=== PATIENT | female | born 1930 | race Caucasian/White ===

== ENCOUNTER → 2016-04-08 | Outpatient (CLI) | payer OTHER ==
[~2016-04-08] MED LIST: ATV5X PO; CHOL100010 PO; CZR50 PO; OPTIRAY 320 IV PRN; POLY335019 PO; QSTP PO; VANC5CAP PO; XRL10 PO
[2016-04-08 13:50] LABS: BLOOD UREA NITROGEN 22 mg/dl (7-18)
--- NOTE | 2016-04-08 14:34 | DIAGNOSTIC IMAGING REPORT ---
CT SCAN OF THE NECK WITH IV CONTRAST CLINICAL HISTORY: Left-sided neck mass. COMPARISON STUDY: No priors. TECHNIQUE: Following the IV administration of 92 cc of Optiray 320, CT scan of the soft tissues of the neck was performed from the skull base to the upper chest. Images are reviewed in the axial, sagittal, and coronal planes. IV contrast was administered without complication. The examination is degraded by streak artifact from metallic spinal orthopedic hardware. CT DOSE: 311.98 mGy.cm FINDINGS: Pharynx: The nasopharynx, oropharynx, and laryngeal pharynx are normal in appearance. The pharyngeal airway is widely patent. There is no evidence of mass lesion. The vocal cords are symmetric. The parapharyngeal fat is well maintained. The prevertebral/retropharyngeal soft tissues are within normal limits. Lymphadenopathy: No cervical lymphadenopathy is seen Thyroid: Normal in size and attenuation. Salivary glands: A cutaneous marker has been placed over a normal appearing left submandibular gland. The left submandibular gland appears larger than the right which is atrophic. There is no surrounding inflammation or fluid. The parotid glands are normal in appearance. Brain parenchyma: An electrode from an occipital extends into the imaged right lateral ventricle. The visualized brain parenchyma at the skull base is otherwise normal in appearance noting age-related involutional change. Vascular structures: The carotid arteries and jugular veins are widely patent bilaterally. Skeletal structures: The skeletal structures are osteopenic. Imaged portions of the calvarium at the skull base appear intact noting a right occipital felicity hole. There is moderate multilevel cervical spondylosis with evidence of previous spinal surgery. No lytic or blastic lesions are identified. Orbits: The bony orbits appear intact as visualized. Orbital contents are normal in appearance noting bilateral ocular lens implants. Sinuses and mastoids: Trace mucosal thickening is seen within the maxillary and ethmoid sinuses. The mastoid air cells are well pneumatized. Lung apices: Visualized apical lung parenchyma is clear. IMPRESSION: 1. No acute abnormality is seen. There is no concerning mass lesion or lymphadenopathy. 2. The finding of palpable concern corresponds to the normal left submandibular gland Electronically signed by: Cristian Hernandez M.D. 04/08/2016 2:33 PM Dictated Date/Time: 04/08/2016 2:20 PM
== END | disposition home or self-care (01) ==
LOC: C.CTS 12:49
PROVIDERS: ATTEND Hospitalist
DX: C50.919 Malignant neoplasm of unspecified site of unspecified female breast (principal); R22.0 Localized swelling, mass and lump, head; R63.4 Abnormal weight loss; J32.9 Chronic sinusitis, unspecified

== ENCOUNTER → 2016-05-01 | Outpatient (CLI) | payer OTHER ==
[~2016-05-01] MED LIST changes: -OPTIRAY 320 IV PRN
--- NOTE | 2016-05-02 12:31 | MAMMOGRAPHY REPORT ---
UNILATERAL RIGHT DIGITAL DIAGNOSTIC MAMMOGRAM TOMOSYNTHESIS WITH CAD AND TARGETED RIGHT ULTRASOUND: 05/01/2016 CLINICAL HISTORY: 85 year-old woman with a history of left breast cancer status post mastectomy pres ents with a complaint of pain throughout the right breast. She is status post a benign ultrasound-g uided biopsy in the right 12:00 breast in 2014. TECHNIQUE: Right breast tomosynthesis in addition to standard 2D mammography was performed. Current study was also evaluated with a Computer Aided Detection (CAD) system. COMPARISON: Comparison is made to exams dated: 05/16/2015 mammogram, 05/13/2014 mammogram, 05/27/2013 ma mmogram, 05/14/2012 mammogram, 04/13/2009 mammogram - [facility], and 03/29/2008. BREAST COMPOSITION: The tissue of the right breast is extremely dense, which lowers the sensitivity of mammography. FINDINGS: Radiodense tubing is partially visualized in the medial, far posterior right breast on the CC view. There are benign coarse calcifications scattered in the right breast. A stable metallic biopsy marker in the 12:00 middle one third of the breast. There is stable asymmetry in the 12:00 a xis and mild architectural distortion, from previous surgical excision. No new suspicious mass, arc hitectural distortion or cluster of microcalcifications is seen. Targeted ultrasound was performed throughout the right breast in the areas of concern pointed out by the patient in the 12:00, retroareolar and periareolar right breast. Normal fibroglandular tissue is seen in the periareolar and retroareolar breast. Hypoechoic tissue that has the appearance of sc ar tissue is identified in the 12:00 breast, correlating with an area of previous surgical excision. No suspicious solid or cystic mass is identified. IMPRESSION: ACR BI-RADS CATEGORY 2: BENIGN, TARGETED ULTRASOUND ACR BI-RADS CATEGORY 2: BENIGN There is no mammographic or targeted sonographic evidence of malignancy. There is no suspicious zane mographic or sonographic abnormality to explain the patient's pain and symptoms. Therefore, clinica l follow-up is recommended. Given the personal history of left breast cancer and dense breasts, if the patient's symptoms are cl inically worrisome could consider additional evaluation with a breast MRI. These results and recomm endations were discussed with the patient and her granddaughter at the time of the exam. Otherwise would recommend routine right mammography in one year. Approximately 10% of breast cancers are not detected with mammography. A negative mammographic repor t should not delay biopsy if a clinically suggestive mass is present. Rosario Robles M.D. ay/:05/01/2016 17:22:54 [employer]: Lexus JAMES(Thor)(Jill), [facility] letter sent: Normal 1/2 BI-RADS Code: ACR BI-RADS Category 2: Benign Ultrasound BI-RADS: ACR BI-RADS Category 2: Benign
== END | disposition home or self-care (01) ==
LOC: C.MAMM 08:58
PROVIDERS: ATTEND Internal Medicine
DX: N64.4 Mastodynia (principal); Z85.3 Personal history of malignant neoplasm of breast

== ENCOUNTER → 2016-05-20 | Outpatient (CLI) | payer OTHER | END | disposition home or self-care (01) | LOC: C.PATHSPEC 13:38 | PROVIDERS: ATTEND Dermatology | DX: L85.8 Other specified epidermal thickening (principal) ==

== ENCOUNTER → 2016-06-04 | Outpatient (CLI) | payer OTHER ==
[2016-06-04 17:38] LABS: BASO % 0.5 %; BASO ABS # 0.03 K/uL (0-0.2); COMPLETE YES; EOS % 2.2 %; HEMATOCRIT 43.6 % (37-47); IG% 0.2 %; LYMPH % 29.3 %; LYMPH ABS # 1.87 K/uL (1.2-3.4); MEAN CELL VOLUME 90.1 fL (80-100); MEAN CORPUSCULAR HEMOGLOBIN 29.3 pg (25-34); MEAN CORPUSCULAR HGB CONC 32.6 g/dl (32-36); MEAN PLATELET VOLUME 10.8 fL (7.4-10.4); MONO % 10.5 %; NEUT % 57.3 %; PLATELET COUNT 297 K/uL (130-400); RED BLOOD COUNT 4.84 M/uL (4.2-5.4); WHITE BLOOD COUNT 6.39 K/uL (4.8-10.8)
[2016-06-04 17:45] LABS: URINE APPEARANCE CLEAR (CLEAR); URINE BILIRUBIN NEG (NEG); URINE COLOR YELLOW; URINE EPITHELIAL CELL AUTO 0-5 /lpf (0-5); URINE NITRITE NEG (NEG); URINE PH 6.5 (4.5-7.5); URINE SPECIFIC GRAVITY 1.016 (1.000-1.030); UROBILINOGEN NEG (NEG); ZZUR CULT IF INDIC CLEAN CATCH NO
[2016-06-04 17:50] LABS: ALT/SGPT 25 U/L (12-78); BLOOD UREA NITROGEN 20 mg/dl (7-18); BUN/CREATININE RATIO 17.9 (10-20); CALCIUM 9.6 mg/dl (8.5-10.1); CARBON DIOXIDE 31 mmol/L (21-32); CHLORIDE 107 mmol/L (98-107); GLUCOSE 106 mg/dl (70-99); MANUAL MICROSCOPIC REQUIRED? NO; POTASSIUM 3.8 mmol/L (3.5-5.1); REVIEW REQ? NO; SODIUM 144 mmol/L (136-145)
[2016-06-04 17:52] LABS: ALB/GLOB RATIO 1.2 (0.9-2); ALKALINE PHOSPHATASE 118 U/L (45-117); AST/SGOT 22 U/L (15-37)
[2016-06-06 18:03] LABS: ALBUMIN 4.3 G/DL (3.8-4.8); GAMMA GLOBULIN 0.7 G/DL (0.8-1.7); TOTAL PROTEIN 6.8 G/DL (6.2-8.3)
== END | disposition home or self-care (01) ==
LOC: C.LABBFT 14:11
PROVIDERS: ATTEND Internal Medicine
DX: M81.0 Age-related osteoporosis without current pathological fracture (principal); R14.0 Abdominal distension (gaseous); E55.9 Vitamin D deficiency, unspecified

== ENCOUNTER → 2016-06-04 | Outpatient (CLI) | payer OTHER ==
--- NOTE | 2016-06-04 12:18 | DIAGNOSTIC IMAGING REPORT ---
ABDOMINAL ULTRASOUND COMPLETE HISTORY: Pain. Nausea. R14.0 Abdominal [id number]. COMPARISON: None. FINDINGS: Pancreas: The pancreas demonstrates a normal echotexture. Liver: Unremarkable. Gallbladder: Surgically removed CBD: 8 mm possibly on a post operative basis Kidneys: Small bilateral renal cysts. No evidence for renal hydronephrosis. Spleen: Normal in size. Aorta: Normal in caliber. IVC: Patent. IMPRESSION: 1. Small bilateral renal cysts. 2. No evidence for hydronephrosis. 3. Otherwise negative study status post cholecystectomy Electronically signed by: Markie Loredo M.D. 06/04/2016 12:16 PM Dictated Date/Time: 06/04/2016 12:14 PM
== END | disposition home or self-care (01) ==
LOC: C.ULTR 10:44
PROVIDERS: ATTEND Internal Medicine
DX: R14.0 Abdominal distension (gaseous) (principal)

== ENCOUNTER → 2016-06-10 | Outpatient (CLI) | payer OTHER | END | disposition home or self-care (01) | LOC: C.LABSPEC 17:55 | PROVIDERS: ATTEND Internal Medicine | DX: R14.0 Abdominal distension (gaseous) (principal) ==

== ENCOUNTER → 2016-06-21 | Outpatient (CLI) | payer OTHER ==
[~2016-06-21] MED LIST changes: +OPTIRAY 320 IV PRN
--- NOTE | 2016-06-21 16:00 | DIAGNOSTIC IMAGING REPORT ---
CT OF THE ABDOMEN AND PELVIS WITH CONTRAST CLINICAL HISTORY: Abdominal pain and bloating. COMPARISON STUDY: Abdominal ultrasound June 04, 2016. TECHNIQUE: Following IV administration of 116 mL of Optiray-320, axial images of the abdomen and pelvis were obtained from the lung bases to the proximal femurs. Images were reviewed in the axial, sagittal, and coronal planes. IV contrast was administered without complication. Oral contrast was administered. CT DOSE: 367.27 mGy.cm FINDINGS: Visualized portions the lower chest demonstrate moderate cardiomegaly. Several bilateral renal cysts are noted. There is no biliary ductal dilatation status post cholecystectomy. There is no peripancreatic infiltration. The spleen and adrenal glands are unremarkable. A JACKSPOOLER shunt is partially imaged. There is no ascites or lymphadenopathy. The uterus is surgically absent. There is no evidence for a bowel obstruction. There is a moderate amount of stool within the colon. No suspicious osseous lesion is present. The appendix is not visualized. IMPRESSION: 1. No acute process within the abdomen or pelvis. 2. No bowel obstruction. Moderate amount of stool within the colon. Electronically signed by: Matias Joel M.D. 06/21/2016 3:58 PM Dictated Date/Time: 06/21/2016 3:49 PM
== END | disposition home or self-care (01) ==
LOC: C.CTS 15:28
PROVIDERS: ATTEND Physician Assistant Medical
DX: R14.0 Abdominal distension (gaseous) (principal)

== ENCOUNTER → 2016-09-02 | Outpatient (CLI) | payer OTHER ==
[~2016-09-02] MED LIST changes: -OPTIRAY 320 IV PRN
--- NOTE | 2016-09-02 16:47 | DIAGNOSTIC IMAGING REPORT ---
SI JOINTS 3 OR MORE VIEWS CLINICAL HISTORY: SACROILIITIS COMPARISON STUDY: Abdomen and pelvis CT 06/21/2016. FINDINGS: Mild degenerative changes within the bilateral sacroiliac joints. No fusion or erosions identified. The sacrum is intact. 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 Electronically signed by: Junior Hathaway M.D. 09/02/2016 4:46 PM Dictated Date/Time: 09/02/2016 4:45 PM
--- NOTE | 2016-09-02 16:48 | DIAGNOSTIC IMAGING REPORT ---
LUMBAR SPINE 5 VIEWS HISTORY: SACROILIITIS COMPARISON: None. FINDINGS: There is no fracture. Generalized degenerative disc change throughout. No evidence for an acute compression deformity. No evidence subluxation. IMPRESSION: Generalized degenerative change. Mild scoliosis. Electronically signed by: Markie Loredo M.D. 09/02/2016 4:47 PM Dictated Date/Time: 09/02/2016 4:45 PM
== END | disposition home or self-care (01) ==
LOC: C.RAD1850 16:10
PROVIDERS: ATTEND Physician Assistant Medical
DX: M46.1 Sacroiliitis, not elsewhere classified (principal)

== ENCOUNTER → 2016-11-08 | Outpatient (CLI) | payer OTHER ==
[~2016-11-08] MED LIST changes: -QSTP PO; -VANC5CAP PO
--- NOTE | 2016-11-08 10:05 | DIAGNOSTIC IMAGING REPORT ---
ABDOMEN 2VIEW W/PA CHEST RTN CLINICAL HISTORY: R14.0 Abdominal [id number] Chronic [id number] COMPARISON STUDY: 12/09/2015 FINDINGS: The erect chest reveals no free air. There is no focal pulmonary consolidation. There is a presumed ventriculoperitoneal shunt catheter present. Erect and supine views the abdomen reveal a peritoneal catheter. There is no pathologic bowel dilatation. There is scattered stool within the colon. There are no transition zones indicate bowel obstruction. There are no calcification suspicious for renal calculi. IMPRESSION: No evidence of bowel obstruction. No evidence of free air. Electronically signed by: Kong Burk M.D. 11/08/2016 10:03 AM Dictated Date/Time: 11/08/2016 10:02 AM
== END | disposition home or self-care (01) ==
LOC: C.RAD1850 09:22
PROVIDERS: ATTEND Physician Assistant
DX: K59.09 Other constipation (principal); R14.0 Abdominal distension (gaseous)

== ENCOUNTER 2016-11-19 19:15 | Emergency (ER) | payer OTHER ==
[~2016-11-19] VITALS: Ht 172.7 cm; Wt 72.8 kg
[~2016-11-19 19:15] MED LIST changes: -XRL10 PO
[2016-11-19 19:24] VITALS: TEMP 36.5; Ht 172.7 cm; Wt 72.8 kg
--- NOTE | 2016-11-19 20:16 | EMERGENCY ROOM VISIT NOTE ---
History First contact with patient: 19:48 Chief Complaint: LEG PAIN,LEG INJURY Stated Complaint: PAIN IN RIGHT LEG History of Present Illness The patient is a 86 year old female who presents to the Emergency Room with complaints of right leg pain that has been bothering her for the last 3 days. The patient denies any injury. The pain is particularly in her right calf. She does notice some pain up to her buttock. She does admit to having back pain , however this is chronic. No fever or chills. She denies any chest pain or shortness of breath. The patient does have a remote history of blood clots. She does not take any anticoagulation. Review of Systems 10 system review performed and negative unless noted in HPI or below Past Medical/Surgical History Medical Problems: (1) Breast cancer (2) C. difficile colitis (3) Hx Of Breast Malignancy (4) Hx-Venous Thrombosis&Embolism (5) Lumbar Disc Displacement (6) Osteoporosis Nos (7) Pure Hypercholesterolem (8) Spondylolisthesis Surgical Problems: (1) Hx of lumbosacral spine surgery (2) Hx of vaginal hysterectomy Family History Lung disease Social History Smoking Status: Never Smoker Alcohol Use: none Marital Status: Housing Status: assisted living Occupation Status: retired Current/Historical Medications Scheduled Cholecalciferol (Vitamin D), 1,000 INTER.UNIT PO DAILY Losartan Potassium (Losartan Potassium), 50 MG PO QAM Polyethylene Glycol 3350 (Miralax), 17 GM PO DAILY Rivaroxaban (Xarelto), 1.5 TAB PO BID Scheduled PRN Lorazepam (Lorazepam), 0.5 MG PO BID PRN for Anxiety and/or Sedation Physical Exam Vital Signs Date Time Temp Pulse Resp B/P (MAP) Pulse Ox O2 Delivery O2 Flow Rate FiO2 11/19/16 22:24 96 18 174/93 98 Room Air 11/19/16 21:39 87 18 162/95 97 Room Air 11/19/16 19:24 36.5 111 18 172/95 91 Room Air Physical Exam VITALS: Vitals are noted on the nurse's note and reviewed by myself. Vital signs stable. GENERAL: 86-year-old female, in no acute distress, nondiaphoretic, SKIN: The skin was without rashes, erythema, edema, or bruising. There is no tenting of the skin. Capillary reflex less than 2 seconds. HEAD: Normocephalic atraumatic. HEART: Regular rate and rhythm without murmurs gallops or rubs. LUNGS: Clear to auscultation bilaterally without wheezes, rales or rhonchi. No accessory muscle use. . MUSCULOSKELETAL: RLE: Tenderness to palpation over the calf muscle. Negative Homans sign. Full range of motion of the knee. No tenderness over the knee. DP pulse +2. Capillary refill less than 2 seconds. No tenderness elicited over the lumbar spinous processes or SI joint. NEURO: Patient was alert and oriented to person place and time. Normal sensation to touch. No focal neurological deficits. Medical Decision & Procedures ER Provider Diagnostic Interpretation: Patient Name: SHAY BUSTOS Unit Number: [id number] Dictated: 11/19/162141 Transcribed: 11/19/162141 ROXANA Printed Date/Time: [~ rep prt dt]/[~ rep prt tm] [~ rep ct labl] - [~ rep ct ivnm] [facility] [address] Radiology Department [place] [id number] Dictated: 11/19/162141 Transcribed: 11/19/162141 ROXANA Printed Date/Time: [~ rep prt dt]/[~ rep prt tm] [~ rep ct labl] - [~ rep ct ivnm] RIGHT LOWER EXTREMITY VENOUS DOPPLER CLINICAL HISTORY: Right lower extremity pain. COMPARISON STUDY: Right lower extremity venous Doppler May 18, 2012. TECHNIQUE: Sonography of the deep venous system of the right lower extremity was performed. Compression and augmentation were evaluated. FINDINGS: The right common femoral, superficial femoral and popliteal veins were compressible. Augmentation was normal. Deep venous thrombus was noted within the right posterior tibial vein. IMPRESSION: Deep venous thrombus within the right posterior tibial vein. Electronically signed by: Matias Joel M.D. 11/19/2016 9:43 PM Dictated Date/Time: 11/19/2016 9:42 PM The status of this report is Signed. Draft = Not yet reviewed or approved by Radiologist. Signed = Reviewed and approved by Radiologist. <AttendingPhy></AttendingPhy> <FamilyPhy>Morgan Wen M.D.</FamilyPhy > <PrimaryPhy>Morgan Wen M.D.</PrimaryPhy> <UnitNumber>[id number]</ UnitNumber> <VisitNumber>[id number]</VisitNumber> <PatientName>SHAY BUSTOS</ PatientName> <DateOfBirth>1930</DateOfBirth> <Location>[facility]</Location> < ServiceDate>11/19/16</ServiceDate> <MNE>ESINDI</MNE> <OrderingPhy>Rebecca Kelly PA-C</OrderingPhy> <OrderingPhyMNE>f rep ord dr vergara</OrderingPhyMNE> < DictatingPhyMNE>f rep dict dr vergara</DictatingPhyMNE> <CCListMNE>f rep ct mne</ CCListMNE> <AdmittingPhyMNE>f pt admit dr vergara</AdmittingPhyMNE> <AttendingPhyMNE >f pt attend dr vergara</AttendingPhyMNE> <ConsultingPhyMNE>f pt consult dr vergara</ConsultingPhyMNE> <FamilyPhyMNE>f pt fam dr vergara</FamilyPhyMNE> <OtherPhyMNE>f pt other dr vergara</OtherPhyMNE> < PrimaryPhyMNE>f pt prim care dr vergara</PrimaryPhyMNE> <ReferringPhyMNE>f pt referring dr vergara</ReferringPhyMNE> Laboratory Results 11/19/16 22:16 Red Blood Count 4.46, Mean Corpuscular Volume 91.0, Mean Corpuscular Hemoglobin 29.1, Mean Corpuscular Hemoglobin Concent 32.0, Mean Platelet Volume 9.9, Neutrophils (%) (Auto) 48.6, Lymphocytes (%) (Auto) 37.0, Monocytes (%) (Auto) 11.4, Eosinophils (%) (Auto) 2.5, Basophils (%) (Auto) 0.5, Neutrophils # (Auto ) 3.66, Lymphocytes # (Auto) 2.79, Monocytes # (Auto) 0.86, Eosinophils # (Auto ) 0.19, Basophils # (Auto) 0.04 11/19/16 22:16 Test 11/19/16 22:16 White Blood Count 7.54 K/uL (4.8-10.8) Red Blood Count 4.46 M/uL (4.2-5.4) Hemoglobin 13.0 g/dL (12.0-16.0) Hematocrit 40.6 % (37-47) Mean Corpuscular Volume 91.0 fL (80-100) Mean Corpuscular Hemoglobin 29.1 pg (25-34) Mean Corpuscular Hemoglobin Concent 32.0 g/dl (32-36) Platelet Count 289 K/uL (130-400) Mean Platelet Volume 9.9 fL (7.4-10.4) Neutrophils (%) (Auto) 48.6 % Lymphocytes (%) (Auto) 37.0 % Monocytes (%) (Auto) 11.4 % Eosinophils (%) (Auto) 2.5 % Basophils (%) (Auto) 0.5 % Neutrophils # (Auto) 3.66 K/uL (1.4-6.5) Lymphocytes # (Auto) 2.79 K/uL (1.2-3.4) Monocytes # (Auto) 0.86 K/uL (0.11-0.59) Eosinophils # (Auto) 0.19 K/uL (0-0.5) Basophils # (Auto) 0.04 K/uL (0-0.2) RDW Standard Deviation 42.4 fL (36.4-46.3) RDW Coefficient of Variation 12.7 % (11.5-14.5) Immature Granulocyte % (Auto) 0.0 % Immature Granulocyte # (Auto) 0.00 K/uL (0.00-0.02) Prothrombin Time 10.3 SECONDS (9.0-12.0) Prothromb Time International Ratio 1.0 (0.9-1.1) Anion Gap 8.0 mmol/L (3-11) Est Creatinine Clear Calc Drug Dose 31.3 ml/min Estimated GFR () 43.0 Estimated GFR (Non- 37.1 BUN/Creatinine Ratio 21.2 (10-20) Calcium Level 9.1 mg/dl (8.5-10.1) ED Course The patient was seen and examined Imaging was performed The patient was off her pain medication, which she declined The findings were discussed with the patient Labs were collected and reviewed The patient was given 1 dose Xarelto 15 mg po Discharge instructions were reviewed, and the patient was discharged in good condition Medical Decision Differential diagnosis: DVT, muscle strain, lumbar radiculopathy This patient is an 86-year-old female that presents emergency department with calf pain. She does have a history of DVT. An ultrasound was performed and consistent with a DVT in the posterior tibial vein. It was not extensive. Her pain was not significant. There are no signs of PE such as hypoxia, chest pain or shortness of breath. The patient lives in assisted living. She has not had any frequent falls. No history of GI bleeding. She was given 1 dose Xarelto in the emergency department. She will be made a follow-up appointment with Dr. Wen within the next 2-3 days. She agrees to return to the emergency department with worsening symptoms such as increased pain, swelling and particularly difficulty breathing or chest pain. Medication Reconcilliation Current Medication List: was personally reviewed by me Blood Pressure Screening Patient's blood pressure: Elevated blood pressure Blood pressure disposition: Elevated BP felt to be situational Impression Primary Impression: DVT (deep venous thrombosis) Departure Information Dispostion Home / Self-Care Condition GOOD Prescriptions Rivaroxaban (Xarelto) 10 Mg Tab 1.5 TAB PO BID for 21 Days, #63 TAB Prov: Rebecca Kelly PA-C 11/19/16 Referrals Morgan Wen M.D. (PCP) Patient Instructions DVT, [facility] Additional Instructions You were found to have a blood clot also known as a DVT in your right leg. You were started on a blood thinner called Xarelto. Please take this as directed. It is very important that you follow up with Dr. Wen within the next 2-3 days. We will call tomorrow morning and try to make the appointment for you. It was also noted that your kidney function was slightly abnormal. It is recommended that you had this rechecked in the next 2-3 days. Your blood pressure was also slightly elevated. Please have Dr. Wen recheck this in the office. Please rest. No strenuous activity until seen by Dr. Wen. Walking around your apartment is ok Please take Tylenol 500 mg every 4 hours as needed for pain. I would avoid ibuprofen for now. Please discuss this with Dr. Wen. Return to the emergency department if you have any of the following symptoms: -Increased redness or swelling of the leg -Chest pain -Shortness of breath -Worsening pain
--- NOTE | 2016-11-19 21:44 | DIAGNOSTIC IMAGING REPORT ---
RIGHT LOWER EXTREMITY VENOUS DOPPLER CLINICAL HISTORY: Right lower extremity pain. COMPARISON STUDY: Right lower extremity venous Doppler May 18, 2012. TECHNIQUE: Sonography of the deep venous system of the right lower extremity was performed. Compression and augmentation were evaluated. FINDINGS: The right common femoral, superficial femoral and popliteal veins were compressible. Augmentation was normal. Deep venous thrombus was noted within the right posterior tibial vein. IMPRESSION: Deep venous thrombus within the right posterior tibial vein. Electronically signed by: Matias Joel M.D. 11/19/2016 9:43 PM Dictated Date/Time: 11/19/2016 9:42 PM
--- NOTE | 2016-11-19 22:30 | EMERGENCY ROOM VISIT NOTE ---
ED Visit Note First contact with patient: 19:48 This Patient was discussed with the physician Meat Process Worker, Rebecca Kelly PA-C. The pertinent historical and physical exam findings were confirmed. I agree with the studies ordered and with the interpretations of these studies. I agree with the disposition and care plan.
[2016-11-19 22:32] LABS: BASO % 0.5 %; BASO ABS # 0.04 K/uL (0-0.2); COMPLETE YES; EOS % 2.5 %; HEMATOCRIT 40.6 % (37-47); LYMPH ABS # 2.79 K/uL (1.2-3.4); MEAN CORPUSCULAR HEMOGLOBIN 29.1 pg (25-34); MEAN PLATELET VOLUME 9.9 fL (7.4-10.4); MONO % 11.4 %; NEUT % 48.6 %; PLATELET COUNT 289 K/uL (130-400); RED BLOOD COUNT 4.46 M/uL (4.2-5.4); WHITE BLOOD COUNT 7.54 K/uL (4.8-10.8)
[2016-11-19 22:40] LABS: PROTHROMBIN TIME (PATIENT) 10.3 SECONDS (9.0-12.0)
[2016-11-19 22:50] LABS: BUN/CREATININE RATIO 21.2 (10-20); CALCIUM 9.1 mg/dl (8.5-10.1); CREATININE 1.3 mg/dl (0.60-1.20); POTASSIUM 4.2 mmol/L (3.5-5.1)
[2016-11-19] MEDS ORDERED: RIVAROXABAN TAB 15 MG TAB PO STA (23:04)
[2016-11-19] MEDS ORDERED: XRL10 PO (23:15)
[2016-11-19 23:38] VITALS: BP 158/86; PULSE 110; O2SAT 96
== END 2016-11-19 23:41 | disposition home or self-care (01) ==
LOC: C.EDB 19:17 → C.EDC 23:41
DX: I82.441 Acute embolism and thrombosis of right tibial vein (principal); E78.00 Pure hypercholesterolemia, unspecified; M81.0 Age-related osteoporosis without current pathological fracture; Z86.718 Personal history of other venous thrombosis and embolism; Z85.3 Personal history of malignant neoplasm of breast; Z86.19 Personal history of other infectious and parasitic diseases; Z90.710 Acquired absence of both cervix and uterus; Z98.890 Other specified postprocedural states; Z79.899 Other long term (current) drug therapy

== ENCOUNTER → 2017-03-24 | Outpatient (CLI) | payer OTHER ==
--- NOTE | 2017-03-24 14:48 | MAMMOGRAPHY REPORT ---
UNILATERAL RIGHT DIGITAL DIAGNOSTIC MAMMOGRAM TOMOSYNTHESIS WITH CAD AND TARGETED RIGHT ULTRASOUND: CLINICAL HISTORY: 86-year-old woman with a personal history of left breast cancer status post mastect sheila and a benign right breast biopsy in the 12:00 axis. She presents for annual right mammography an d also reports right lateral breast pain and possible lump. TECHNIQUE: Right breast tomosynthesis in addition to standard 2D mammography was performed. Current s jeff was also evaluated with a Computer Aided Detection (CAD) system. COMPARISON: Comparison is made to exams dated: 05/01/2016 mammogram, 05/01/2016 ultrasound, 05/16/2015 m ammogram, 05/20/2014 ultrasound biopsy, 05/13/2014 ultrasound, and 05/13/2014 mammogram - [facility]. BREAST COMPOSITION: The tissue of the right breast is heterogeneously dense, which may obscure small masses. FINDINGS: There is a stable ribbon-shaped biopsy marker clip in the 12:00 middle to posterior right b reast, denoting the site of prior benign ultrasound-guided core biopsy. An asymmetry is seen surroun ding the biopsy marker clip in the CC projection, which appears stable dating back to at least 2015, therefore considered benign given long-term stability. There are a few benign coarse calcifica tions in the lateral right breast. No new suspicious masses, calcifications, areas of architectural distortion or asymmetry. Tubing projects over the medial posterior right breast in the CC projection . Targeted ultrasound was performed in the 9:00 and 10:00 axes of the right breast in the areas of pain and possible lump pointed out by the patient. Sonographically normal tissue is seen without a suspi cious solid or cystic mass. IMPRESSION: ACR BI-RADS CATEGORY 2: BENIGN, TARGETED ULTRASOUND ACR BI-RADS CATEGORY 2: BENIGN Stable mammographic appearance of the right breast, without mammographic evidence of malignancy. No targeted sonographic evidence of malignancy in the 9:00 or 10:00 axes of the right breast in the area s of pain and possible lump pointed out by the patient. Clinical follow-up is recommended, as biopsy of a clinically suspicious mass should not be precluded by negative imaging. Otherwise recommend ro utine screening of the right breast in one year. These results and recommendations were discussed with the patient at the time of the exam. Approximately 10% of breast cancers are not detected with mammography. A negative mammographic report should not delay biopsy if a clinically suggestive mass is present. Rosario Robles M.D. ay/:03/24/2017 11:24:34 Manager Operations Research: Jessica SWAN)(Jill), [facility] letter sent: Normal 1/2 BI-RADS Code: ACR BI-RADS Category 2: Benign Ultrasound BI-RADS: ACR BI-RADS Category 2: Benign
== END | disposition home or self-care (01) ==
LOC: C.MAMM 10:40
PROVIDERS: ATTEND Physician Assistant Medical
DX: R92.8 Other abnormal and inconclusive findings on diagnostic imaging of breast (principal)

== ENCOUNTER → 2017-05-14 | Outpatient (CLI) | payer OTHER | END | disposition home or self-care (01) | LOC: C.LABBFT 10:08 | PROVIDERS: ATTEND Physician Assistant Medical | DX: R10.9 Unspecified abdominal pain (principal); Z86.19 Personal history of other infectious and parasitic diseases ==

== ENCOUNTER → 2017-05-21 | Outpatient (CLI) | payer OTHER ==
[2017-05-21 12:29] LABS: CREATININE 0.93 mg/dl (0.60-1.20)
== END | disposition home or self-care (01) ==
LOC: C.LABBFT 10:02
PROVIDERS: ATTEND Internal Medicine Rheumatology
DX: M80.00XA Age-related osteoporosis with current pathological fracture, unspecified site, initial encounter for fracture (principal); E61.8 Deficiency of other specified nutrient elements

== ENCOUNTER → 2017-05-27 | Outpatient (CLI) | payer OTHER | END | disposition home or self-care (01) | LOC: C.MAMM 11:21 | PROVIDERS: ATTEND Internal Medicine Rheumatology | DX: M81.0 Age-related osteoporosis without current pathological fracture (principal) ==

== ENCOUNTER → 2017-06-09 | Outpatient (CLI) | payer OTHER ==
[~2017-06-09] MED LIST changes: +OPTIRAY 320 IV PRN
--- NOTE | 2017-06-09 14:37 | DIAGNOSTIC IMAGING REPORT ---
ABD/PELVIS IV AND ORAL CONT CLINICAL HISTORY: 86 years-old Female presenting with R63.4 Unintentional weight lossR19.4 Change in bowel habits. TECHNIQUE: Multidetector CT of the abdomen and pelvis was performed after the administration of oral and intravenous contrast. IV contrast: None. A dose lowering technique was used consistent with the principles of ALARA (as low as reasonably achievable). COMPARISON: 06/21/2016. CT DOSE (mGy.cm): The estimated cumulative dose is 348.13 mGy.cm. FINDINGS: Clinical Research Technician topogram: Unremarkable. Lung bases: Solid subpleural 6 mm nodule at the posterior basal right lower lobe is unchanged from prior (series 3 image 59). Bandlike opacities at the lung bases likely atelectasis or scarring. Heart top normal in size. No pericardial or pleural effusion. Liver: Normal morphology. Subcentimeter hypodensity at the right hepatic dome likely hepatic cyst or hamartoma. Patent hepatic vasculature. Biliary: Mild biliary ductal prominence likely a reservoir effect in the post cholecystectomy state. Gallbladder surgically absent. Pancreas: Normal. Spleen: Normal. Adrenal glands: Normal. Kidneys and ureters: Well-defined hypodensities in the kidneys likely simple cysts. Subcentimeter cortical defect anteriorly at the right upper pole may contain fat (series 3 image 102), possibly an angiomyolipoma. No nephrolithiasis. Ureters normal. Bladder: Normal. Pelvic organs: Uterus surgically absent. No adnexal masses. Bowel: Normal. No bowel obstruction. Mild wall thickening of the distal esophagus versus small hiatal hernia. Peritoneal cavity: A percutaneous catheter is noted transiting in the subcutaneous tissue and entering the right mid abdomen and terminating in the pelvis. This may represent a ventriculoperitoneal catheter. No free fluid or gas in the abdomen or pelvis. Lymph nodes: No enlarged lymph nodes in the abdomen or pelvis. Vasculature: Atherosclerosis of the normal caliber abdominal aorta. IVC patent. Abdominal wall: Diastasis of the rectus abdominis. Fat-containing left inguinal hernia. Musculoskeletal: Degenerative changes of the spine. IMPRESSION: 1. No evidence of abdominal or pelvic malignancy. No lymphadenopathy. 2. Nonspecific thickening of the distal esophageal wall versus small hiatal hernia. 3. Top normal cardiac size. Electronically signed by: Jason Bowling M.D. 06/09/2017 2:36 PM Dictated Date/Time: 06/09/2017 2:23 PM
== END | disposition home or self-care (01) ==
LOC: C.CTS 13:47
PROVIDERS: ATTEND Physician Assistant
DX: R63.4 Abnormal weight loss (principal); R19.4 Change in bowel habit

== ENCOUNTER → 2017-06-16 | Outpatient (CLI) | payer OTHER ==
[~2017-06-16] MED LIST changes: -OPTIRAY 320 IV PRN
== END | disposition home or self-care (01) ==
LOC: C.LAB1850 15:36
PROVIDERS: ATTEND Internal Medicine Rheumatology
DX: R05 Cough (principal); M80.00XA Age-related osteoporosis with current pathological fracture, unspecified site, initial encounter for fracture; R77.8 Other specified abnormalities of plasma proteins; E61.8 Deficiency of other specified nutrient elements

== ENCOUNTER → 2017-07-17 | Outpatient (CLI) | payer OTHER ==
--- NOTE | 2017-07-17 17:13 | DIAGNOSTIC IMAGING REPORT ---
VENOUS DOPP LOWER EXT UNILAT HISTORY: 86 years-old Female LEFT LEG PAIN/SWELLING acute left leg pain and swelling COMPARISON: None available TECHNIQUE: Multiple real-time sonographic images of the left lower extremity deep venous structures were obtained assessing grayscale appearance, color and spectral flow FINDINGS: Normal compressibility, flow, phasicity and augmentation of the left lower extremity deep venous structures. IMPRESSION: No sonographic evidence of deep venous thrombosis. The above report was generated using voice recognition software. It may contain grammatical, syntax or spelling errors. Electronically signed by: Marquez Davila M.D. 07/17/2017 5:11 PM Dictated Date/Time: 07/17/2017 5:10 PM
== END | disposition home or self-care (01) ==
LOC: C.ULTR 16:34
PROVIDERS: ATTEND Physician Assistant Medical
DX: M79.89 Other specified soft tissue disorders (principal)

== ENCOUNTER → 2017-07-25 | Outpatient (CLI) | payer OTHER | END | disposition home or self-care (01) | LOC: C.LABBFT 10:31 | PROVIDERS: ATTEND Physician Assistant | DX: R19.7 Diarrhea, unspecified (principal) ==

== ENCOUNTER → 2017-07-31 | Outpatient (CLI) | payer OTHER ==
[2017-07-31 12:32] LABS: BASO % 0.8 %; BASO ABS # 0.04 K/uL (0-0.2); EOS ABS # 0.19 K/uL (0-0.5); HEMATOCRIT 42.2 % (37-47); LYMPH % 35.9 %; MEAN CELL VOLUME 91.7 fL (80-100); MEAN CORPUSCULAR HEMOGLOBIN 30.4 pg (25-34); MEAN CORPUSCULAR HGB CONC 33.2 g/dl (32-36); MEAN PLATELET VOLUME 10.1 fL (7.4-10.4); MONO % 10.8 %; MONO ABS # 0.51 K/uL (0.11-0.59); NEUT % 48.5 %; PLATELET COUNT 298 K/uL (130-400); RED CELL DISTRIBUTION WIDTH CV 13.3 % (11.5-14.5); RED CELL DISTRIBUTION WIDTH SD 44.6 fL (36.4-46.3); WHITE BLOOD COUNT 4.74 K/uL (4.8-10.8)
[2017-07-31 13:20] LABS: ALBUMIN 3.5 gm/dl (3.4-5.0); ALKALINE PHOSPHATASE 113 U/L (45-117); ALT/SGPT 16 U/L (12-78); AST/SGOT 17 U/L (15-37); BLOOD UREA NITROGEN 16 mg/dl (7-18); CALCIUM 8.5 mg/dl (8.5-10.1); CARBON DIOXIDE 26 mmol/L (21-32); CHOLESTEROL 188 mg/dl (0-200); CREATININE 0.92 mg/dl (0.60-1.20); GLUCOSE 89 mg/dl (70-99); LDL CHOLESTEROL CALCULATED 110 mg/dl; POTASSIUM 4.3 mmol/L (3.5-5.1); SODIUM 141 mmol/L (136-145); TOTAL PROTEIN 7.2 gm/dl (6.4-8.2)
== END | disposition home or self-care (01) ==
LOC: C.LABBFT 09:29
PROVIDERS: ATTEND Internal Medicine
DX: I10 Essential (primary) hypertension (principal); R01.1 Cardiac murmur, unspecified; M81.0 Age-related osteoporosis without current pathological fracture; R19.7 Diarrhea, unspecified

== ENCOUNTER 2017-09-29 17:54 | Inpatient (IN) | payer OTHER ==
[~2017-09-29] VITALS: Ht 170.2 cm; Wt 68.0 kg
[2017-09-29] VITALS (9 sets, daily range): BP systolic 115–143; BP diastolic 61–79; PULSE 77–91; TEMP 36.5–36.8; O2SAT 95–100; Ht 170.2 cm; Wt 68.0 kg
[2017-09-29] MEDS ORDERED: SODIUM CHLORIDE 0.9% 1000ML 1,000 ML IV SCH (18:00)
--- NOTE | 2017-09-29 18:13 | EMERGENCY ROOM VISIT NOTE ---
History Report prepared by Yannick: Avinash Calvo Under the Supervision of: Dr. Garrick Stacy D.O. First contact with patient: 17:53 Stated Complaint: STROKE ALERT History of Present Illness The patient is a 87 year old female who presents to the Emergency Room via EMS with complaints of constant stroke-like symptoms that began 2 hours ago. EMS states the patient was experiencing left-sided numbness and weakness. They add the patient was hypertensive. Patient adds she feels like her "hand isn't working right". She adds she has been experiencing dizziness. Patient states she gets intermittent headaches at night that resolve in the morning. 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 Patient states she does not know why she has the MRI SPECIAL PROCEDURES TECHNOLOGIST shunt. Patient denies nausea and vomiting. Patient is present with her son. Source of History: patient, family, EMS Onset: 2 hours ago Position: other (Left-side of body) Quality: numbness Timing: constant Modifying Factors (Relieving): other (None) Associated Symptoms: + headache, + weakness, No nausea, No vomiting Note: Positive dizziness. Review of Systems See HPI for pertinent positives & negatives. A total of 10 systems reviewed and were otherwise negative. Past Medical & Surgical Medical Problems: (1) Breast cancer (2) C. difficile colitis (3) Hx Of Breast Malignancy (4) Hx-Venous Thrombosis&Embolism (5) Lumbar Disc Displacement (6) Osteoporosis Nos (7) Pure Hypercholesterolem (8) Spondylolisthesis (9) Stroke Surgical Problems: (1) Hx of lumbosacral spine surgery (2) Hx of vaginal hysterectomy Family History Gallbladder disease Heart disease Lung disease Social History Alcohol Use: none Housing Status: assisted living Current/Historical Medications Scheduled Losartan Potassium (Cozaar), 50 MG PO QAM Allergies Coded Allergies: Penicillins (Verified Allergy, Unknown, HAD KEFZOL W/O PROBLEM, 11/19/16) 12/01 HAD KEFZOL IN RR W/O PROBLEM Macrolides (Verified Adverse Reaction, Mild, MYCINS- GI SYMPTOMS, 11/19/16) Physical Exam Vital Signs Date Time Temp Pulse Resp B/P (MAP) Pulse Ox O2 Delivery O2 Flow Rate FiO2 09/29/17 19:22 88 16 09/29/17 19:16 184/105 09/29/17 19:12 88 16 09/29/17 19:07 171/115 09/29/17 19:01 174/100 09/29/17 18:54 98 26 97 09/29/17 18:51 179/107 09/29/17 18:46 171/111 09/29/17 18:31 173/82 09/29/17 18:27 156/96 09/29/17 18:27 88 20 156/96 99 Room Air 09/29/17 18:24 89 17 100 09/29/17 18:23 98 Room Air 09/29/17 18:23 88 09/29/17 18:14 37.1 92 20 204/112 98 Room Air 09/29/17 18:12 204/112 Physical Exam GENERAL: Patient is awake, alert, and in no acute distress. Patient is resting comfortably and showing no signs of anxiety EYES: The conjunctivae are clear. The pupils are round and reactive. EARS, NOSE, MOUTH AND THROAT: The nose is without any evidence of any deformity. Mucous membranes are moist. Tongue is midline NECK: The neck is nontender and supple. RESPIRATORY: Normal respiratory effort is noted. There is no evidence of wheezing rhonchi or rales to auscultation. CARDIOVASCULAR: Regular rate and rhythm noted. There no murmurs rubs or gallops normal S1 normal S2 GASTROINTESTINAL: The abdomen is soft. Bowel sounds are present in all quadrants. Abdomen is nontender. MUSCULOSKELETAL/EXTREMITIES: There is no evidence of gross deformity. Full range of motion is noted in the hips and shoulders. SKIN: There is no obvious evidence of any rash. There are no petechiae, pallor or cyanosis noted. NEUROLOGIC: Patient is awake alert and oriented x3. No facial droop noted. School Childcare Attendant strength is symmetric. Slight drift noted in LLE compared to RLE. Medical Decision & Procedures ER Provider Diagnostic Interpretation: Radiology results as stated below per my review and radiologist interpretation: CHEST ONE VIEW PORTABLE CLINICAL HISTORY: Stroke mental status change COMPARISON STUDY: 11/08/2016 FINDINGS: The bones soft tissues and hemidiaphragms are normal. The cardiomediastinal silhouette is normal. The lungs are clear. The pulmonary vasculature is normal. IMPRESSION: Negative chest. The above report was generated using voice recognition software. It may contain grammatical, syntax or spelling errors. Electronically signed by: Markie Loredo M.D. 09/29/2017 6:30 PM HEAD WITHOUT CONTRAST (CT) CT DOSE: 537.48 mGy.cm HISTORY: Mental status change Stroke TECHNIQUE: Multiaxial CT images of the head were performed without the use of intravenous contrast. A dose lowering technique was utilized adhering to the principles of ALARA. Comparison: 12/09/2015 Findings: The paranasal sinuses and mastoid air cells are clear. Shunt catheter in good position. No evidence for hydrocephalus. Moderate chronic small vessel change of aging. No acute intracranial abnormality. Impression: Chronic and postoperative change. No acute process. The above report was generated using voice recognition software. It may contain grammatical, syntax or spelling errors. Electronically signed by: Markie Loredo M.D. 09/29/2017 6:11 PM Laboratory Results 09/29/17 18:20 Red Blood Count 5.01, Mean Corpuscular Volume 90.6, Mean Corpuscular Hemoglobin 29.9, Mean Corpuscular Hemoglobin Concent 33.0, Mean Platelet Volume 10.2, Neutrophils (%) (Auto) 49.4, Lymphocytes (%) (Auto) 36.5, Monocytes (%) (Auto) 9.8, Eosinophils (%) (Auto) 3.3, Basophils (%) (Auto) 0.9, Neutrophils # (Auto) 3.74, Lymphocytes # (Auto) 2.76, Monocytes # (Auto) 0.74, Eosinophils # (Auto) 0.25, Basophils # (Auto) 0.07 09/29/17 18:20 Test 09/29/17 18:19 09/29/17 18:20 Bedside Glucose 81 mg/dl (70-90) White Blood Count 7.57 K/uL (4.8-10.8) Red Blood Count 5.01 M/uL (4.2-5.4) Hemoglobin 15.0 g/dL (12.0-16.0) Hematocrit 45.4 % (37-47) Mean Corpuscular Volume 90.6 fL (80-100) Mean Corpuscular Hemoglobin 29.9 pg (25-34) Mean Corpuscular Hemoglobin Concent 33.0 g/dl (32-36) Platelet Count 296 K/uL (130-400) Mean Platelet Volume 10.2 fL (7.4-10.4) Neutrophils (%) (Auto) 49.4 % Lymphocytes (%) (Auto) 36.5 % Monocytes (%) (Auto) 9.8 % Eosinophils (%) (Auto) 3.3 % Basophils (%) (Auto) 0.9 % Neutrophils # (Auto) 3.74 K/uL (1.4-6.5) Lymphocytes # (Auto) 2.76 K/uL (1.2-3.4) Monocytes # (Auto) 0.74 K/uL (0.11-0.59) Eosinophils # (Auto) 0.25 K/uL (0-0.5) Basophils # (Auto) 0.07 K/uL (0-0.2) RDW Standard Deviation 43.0 fL (36.4-46.3) RDW Coefficient of Variation 13.0 % (11.5-14.5) Immature Granulocyte % (Auto) 0.1 % Immature Granulocyte # (Auto) 0.01 K/uL (0.00-0.02) Prothrombin Time 10.2 SECONDS (9.0-12.0) Prothromb Time International Ratio 1.0 (0.9-1.1) Activated Partial Thromboplast Time 26.2 SECONDS (21.0-31.0) Partial Thromboplastin Ratio 1.0 Anion Gap 7.0 mmol/L (3-11) Est Creatinine Clear Calc Drug Dose 39.7 ml/min Estimated GFR () 60.9 Estimated GFR (Non- 52.5 BUN/Creatinine Ratio 24.0 (10-20) Calcium Level 10.0 mg/dl (8.5-10.1) Magnesium Level 2.3 mg/dl (1.8-2.4) Total Creatine Kinase 74 U/L (26-192) Creatine Kinase MB 1.2 ng/ml (0.5-3.6) Creatine Kinase MB Ratio 1.6 (0-3.0) Troponin I < 0.015 ng/ml (0-0.045) Date/Time Source Procedure Growth Status 09/29/17 00:00 Nasal MRSA DNA Surveillance Screen - Final Specimen Negative for MRSA by DNA Probe Complete Laboratory results per my review. Medications Administered Medications (Trade) Dose Ordered Sig/Reji Route Start Time Stop Time Status Last Admin Dose Admin Sodium Chloride 1,000 ml @ 50 mls/hr Q20H IV 09/29/17 18:00 10/29/17 17:59 7/23/18 18:00 50 MLS/HR Labetalol HCl (Normodyne IV) 10 mg NOW STAT IV 09/29/17 18:19 09/29/17 18:20 DC 09/29/17 18:21 10 MG Alteplase, Recombinant 66 mg/ Empty Bag 66 ml @ 66 mls/hr TODAY@1900 IV 09/29/17 19:00 09/29/17 19:59 DC 09/29/17 19:17 66 MLS/HR Alteplase, Recombinant 6.6 mg/Syringe 6.6 ml @ 6.6 mls/min TODAY@1900 ONCE IV 09/29/17 19:00 09/29/17 19:01 DC 09/29/17 19:16 6.6 MLS/MIN Labetalol HCl (Normodyne IV) 10 mg NOW STAT IV 09/29/17 18:55 09/29/17 18:57 DC 09/29/17 19:08 10 MG Labetalol HCl (Normodyne IV) 10 mg NOW STAT IV 09/29/17 19:10 09/29/17 19:12 DC 09/29/17 19:16 10 MG ECG Per My Interpretation Indication: weakness Rate (beats per minute): 96 Rhythm: normal sinus Findings: no ectopy, other (no acute ST segment changes) Comparison ECG Date: 04/30/15 Change: no significant change ED Course 175: The patient was evaluated in room A1. A complete history and physical examination were performed. 1800: NSS 1,000 ml @ 50 mls/hr IV 1814: I reevaluated the patient. 181: Labetalol HCl 5mg .ROUTE 181: Labetalol HCl 10mg IV 185: Labetalol HCL 10mg IV 185: I reassessed the patient. I discussed with the patient and her family the risk and benefits of TPA. Family is discussing if they want it. 1857: Family states they discussed the risk and benefits of TPA and are agreeable to the treatment plan. Bolus being given now. 1900: Alteplase Recombinant 6.6 mg/Syringe 6.6 ml @ 6.6 mls/min IV 1910: Labetalol HCl 10mg IV 1927: Upon reevaluation, the patient will be further evaluated. I discussed results and treatment plan with her and her family. They verbalize agreement and understanding. I spoke with Dr. Allen of the [facility]. The patient will be evaluated for further management and care. Medical Decision Differential diagnosis: Etiologies such as metabolic, infection, hypo/hyperglycemia, electrolyte abnormalities, cardiac sources, intracerebral event, toxicologic, neurologic, as well as others were entertained. Nursing notes reviewed. Additional history is obtained from the prehospital personnel. Additional history is obtained from the patient's family member. The patient is an 87-year-old female who presented to the emergency department for a stroke evaluation. The patient was made a stroke alert prior to arrival and was taken directly to the CAT scanner. The patient states that she noticed numbness in her left arm and left leg at approximately 4 PM. She was at a cooking class. The patient states she had difficulty using the arm but her symptoms started to improve. When she arrived in the emergency department she was able to use her left arm she had no facial droop but she appeared to have some weakness in the left leg. Initially her NIH stroke score was felt to be 0 by nursing but they agreed that she did have some asymmetry in her left lower extremity compared to the right. The patient was evaluated by the [facility] tele stroke neurologist. TPA was mixed given the patient's acute onset of symptoms and after the neurology evaluation the patient was felt to be a good candidate for TPA given her presentation as well as her quality of life prior to presenting to the emergency department today. I discussed the patient's condition with her I also discussed conditions with her son. They were able to consent for TPA and are aware of the risks as well as the benefits of this medication. TPA was started in the emergency department. The patient was also treated with IV labetalol for blood pressure control. I discussed patient's condition with the [facility] hospitalist group. They have agreed to evaluate the patient in the emergency department for further management and disposition. Medication Reconcilliation Current Medication List: was personally reviewed by me Blood Pressure Screening Patient's blood pressure: Elevated blood pressure Blood pressure disposition: Referred to PCP Consults Time Called: 1816 Consulting Physician: Dr. David Odom Neurologist Returned Call: [phone] I discussed the patient's case with Dr. Hernandez. She recommends mixing the TPA. Additional Consults: Time Called: 1856 Consulted Physician: Dr. David Odom Neurologist Returned Call: 1858 Additional Comments: I discussed the patient's case with Dr. Hernandez. She states to administer the TPA treatment. Time Called: 1923 Consulted Physician: Dr. Allen - [facility] Returned Call: 1924 Additional Comments: I discussed the patient's case with Dr. Allen. The patient will be evaluated for further management. Impression Primary Impression: CVA (cerebral vascular accident) Critical Care I have personally spent greater than 60 minutes of critical care time in the direct management of this patient. This includes bedside care, interpretation of diagnostic studies, and testing, discussion with consultants, patient, and family members, and other required patient management activities. This 60 minutes is in excess of all separately billable procedures. Scribe Attestation The scribe's documentation has been prepared under my direction and personally reviewed by me in its entirety. I confirm that the note above accurately reflects all work, treatment, procedures, and medical decision making performed by me. Departure Information Dispostion Being Evaluated By Hospitalist Forms HOME CARE DOCUMENTATION FORM, IMPORTANT VISIT INFORMATION Patient Instructions My [facility] Stroke History Time Last Known Well 2 hours ago Stroke t-PA Criteria Reviewed Meets criteria for t-PA Reason t-PA Not Given Treatment provided - N/A Problem Qualifiers Primary Impression: CVA (cerebral vascular accident) CVA mechanism: unspecified Qualified Codes: I63.9 - Cerebral infarction, unspecified
[2017-09-29] MEDS ORDERED: LABETALOL HCL IV 5 MG/ML 20ML ONE (18:17)
[2017-09-29] MEDS ORDERED: LABETALOL HCL IV 5 MG/ML 20ML IV STA ×3 (18:19→19:10)
--- NOTE | 2017-09-29 18:31 | DIAGNOSTIC IMAGING REPORT ---
CHEST ONE VIEW PORTABLE CLINICAL HISTORY: Stroke mental status change COMPARISON STUDY: 11/08/2016 FINDINGS: The bones soft tissues and hemidiaphragms are normal. The cardiomediastinal silhouette is normal. The lungs are clear. The pulmonary vasculature is normal. IMPRESSION: Negative chest. The above report was generated using voice recognition software. It may contain grammatical, syntax or spelling errors. Electronically signed by: Markie Loredo M.D. 09/29/2017 6:30 PM Dictated Date/Time: 09/29/2017 6:29 PM
[2017-09-29 18:41] LABS: BASO % 0.9 %; BASO ABS # 0.07 K/uL (0-0.2); EOS % 3.3 %; EOS ABS # 0.25 K/uL (0-0.5); HEMATOCRIT 45.4 % (37-47); IG# 0.01 K/uL (0.00-0.02); LYMPH % 36.5 %; LYMPH ABS # 2.76 K/uL (1.2-3.4); MEAN CELL VOLUME 90.6 fL (80-100); MEAN CORPUSCULAR HEMOGLOBIN 29.9 pg (25-34); MEAN PLATELET VOLUME 10.2 fL (7.4-10.4); MONO % 9.8 %; MONO ABS # 0.74 K/uL (0.11-0.59); NEUT % 49.4 %; NEUT ABS # 3.74 K/uL (1.4-6.5); PLATELET COUNT 296 K/uL (130-400); WHITE BLOOD COUNT 7.57 K/uL (4.8-10.8)
[2017-09-29 18:45] LABS: PTT PATIENT 26.2 SECONDS (21.0-31.0)
[2017-09-29] MEDS ORDERED: ALTEPLASE IV STA (18:53)
[2017-09-29] MEDS ORDERED: RECOMBINANT IV STA (18:53)
[2017-09-29 18:58] LABS: BLOOD UREA NITROGEN 23 mg/dl (7-18); CARBON DIOXIDE 26 mmol/L (21-32); CKMB 1.2 ng/ml (0.5-3.6); CREATININE 0.97 mg/dl (0.60-1.20); GLUCOSE 86 mg/dl (70-99); POTASSIUM 4.6 mmol/L (3.5-5.1); SODIUM 139 mmol/L (136-145)
[2017-09-29] MEDS ORDERED: SET 2260-0500 IV ONE (19:00)
[2017-09-29] MEDS ORDERED: RECOMBINANT IV SCH (19:00)
[2017-09-29] MEDS ORDERED: ALTEPLASE IV SCH (19:00)
[2017-09-29] MEDS ORDERED: ALTEPLASE IV ONE (19:00)
[2017-09-29] MEDS ORDERED: RECOMBINANT IV ONE (19:00)
[2017-09-29] MEDS ORDERED: LOSA50TA54 PO (19:18)
[2017-09-29] MEDS ORDERED: ICU PROTOCOL FOR HYPERGLYCEMIA PRN ×2 (19:30→21:30)
[2017-09-29] MEDS ORDERED: PHARMACIST DISCHARGE MED REC CONSULT PRN (19:30)
--- NOTE | 2017-09-29 21:29 | Critical Care Consultation ---
Critical Care Consultation Date of Consultation: Sep 29, 2017. Attending Physician: Fausto Allen M.D. Reason for Consultation: 87-year-old female status post TPA administration in the setting of acute CVA with LEFT-sided residual deficits requiring close hemodynamic monitoring. History of Present Illness Patient is an otherwise healthy 87-year-old female who presented to the emergency department this evening as a code stroke alert with new onset LEFT upper and lower extremity weakness. The patient reports that earlier this afternoon, while in a cooking class, she had a "funny feeling" in her LEFT hand. Shortly after, she noticed she was having difficulty with moving the hand. She contacted her son and they spoke to staff who recommended the patient be transferred to the emergency department for further evaluation and management. On evaluation, the patient was found to have persistent LEFT upper and lower weakness. After consultation with [facility] via telestroke, it was felt that the patient was an appropriate candidate for TPA. She was found to have a negative CT of the head other than postoperative changes consistent with her history of normal pressure hydrocephalus status post shunting. On evaluation, the patient is awake, alert, and oriented. She still complains of some persistent LEFT upper extremity weakness with improved LEFT lower extremity weakness. She denies any numbness sensation at this point. Patient denies any current headaches, dizziness, lightheadedness, blurry vision, double vision, slurred speech, facial droop, chest pain, palpitations, shortness of breath, nausea, or vomiting. Most recently, the patient has been on Eliquis for DVT diagnosis 2. A family member recently suggested that the patient should consider being taken off Eliquis as she was having multiple rounds of diarrhea and they felt maybe the lactose as a component of the Eliquis was causing her diarrhea. She was taken off of the Eliquis by her primary care provider which did not change her bowel habits. The patient eventually restarted her Eliquis. At an appointment in mid August, it was discussed the patient may be able to discontinue her Eliquis. She has not been on the medication since August 17. Patient is an active 87-year-old female who lives in assisted living institute. Past Medical/Surgical History Medical Problems: (1) Breast cancer (2) C. difficile colitis (3) Hx Of Breast Malignancy (4) Hx-Venous Thrombosis&Embolism (5) Lumbar Disc Displacement (6) Osteoporosis Nos (7) Pure Hypercholesterolem (8) Spondylolisthesis (9) Stroke Surgical Problems: (1) Hx of lumbosacral spine surgery (2) Hx of vaginal hysterectomy Family History Gallbladder disease Heart disease Lung disease Social History Smoking Status: Never Smoker Smokeless Tobacco Use: No Alcohol Use: none Drug Use: none Marital Status: Housing Status: assisted living Occupation Status: retired Allergies Coded Allergies: Penicillins (Verified Allergy, Unknown, HAD KEFZOL W/O PROBLEM, 11/19/16) 12/01 HAD KEFZOL IN RR W/O PROBLEM Macrolides (Verified Adverse Reaction, Mild, MYCINS- GI SYMPTOMS, 11/19/16) Home Medications Scheduled Losartan Potassium (Cozaar), 50 MG PO QAM Current Inpatient Medications Current Inpatient Medications Medications (Trade) Dose Ordered Sig/Reji Route Start Time Stop Time Status Last Admin Dose Admin Sodium Chloride 1,000 ml @ 50 mls/hr Q20H IV 09/29/17 18:00 10/29/17 17:59 09/29/17 18:00 50 MLS/HR Miscellaneous Information (Pharmacist Discharge Med Rec Consult) 1 ea UD PRN N/A 09/29/17 19:30 10/29/17 19:29 Miscellaneous Information (Icu Protocol For Hyperglycemia) 1 ea PRN PRN N/A 09/29/17 19:30 10/01/17 19:29 Miscellaneous Information (Icu Protocol For Hyperglycemia) 1 ea PRN PRN N/A 09/29/17 21:30 10/01/17 21:29 UNV Losartan Potassium (coZAAR TAB) 50 mg QAM PO 09/30/17 09:00 10/30/17 08:59 UNV Acetaminophen 650 mg/Empty Bag 65 ml @ 260 mls/hr Q6H PRN IV 09/29/17 21:30 10/29/17 21:29 UNV Review of Systems A complete 10-point Review of Systems was discussed with the patient, with pertinent positives and negatives listed in the History of Present Illness. All remaining Review of Systems questions can be considered negative unless otherwise specified. Physical Exam Date Time Temp Pulse Resp B/P (MAP) Pulse Ox O2 Delivery O2 Flow Rate FiO2 09/29/17 20:31 90 19 130/91 94 09/29/17 20:26 89 16 97 09/29/17 20:21 161/98 09/29/17 20:16 89 15 98 09/29/17 20:15 37.0 85 20 130/91 98 Room Air 09/29/17 20:11 156/103 09/29/17 20:06 88 23 99 09/29/17 20:01 152/89 09/29/17 19:57 88 17 99 09/29/17 19:51 147/87 09/29/17 19:47 92 26 99 09/29/17 19:41 167/101 09/29/17 19:37 88 20 100 09/29/17 19:32 87 13 100 09/29/17 19:31 152/90 09/29/17 19:30 164/98 09/29/17 19:22 88 16 09/29/17 19:16 184/105 09/29/17 19:12 88 16 09/29/17 19:07 171/115 09/29/17 19:01 174/100 09/29/17 18:54 98 26 97 09/29/17 18:51 179/107 09/29/17 18:46 171/111 09/29/17 18:31 173/82 09/29/17 18:27 156/96 09/29/17 18:27 88 20 156/96 99 Room Air 09/29/17 18:24 89 17 100 09/29/17 18:23 98 Room Air 09/29/17 18:23 88 09/29/17 18:14 37.1 92 20 204/112 98 Room Air 09/29/17 18:12 204/112 VITAL SIGNS - Vital signs and nursing notes were reviewed. GENERAL - 87-year-old female appearing her stated age who is in no acute distress. Communicates well with provider and answers questions appropriately. SKIN - Without rashes. HEAD - NC/AT. EYES - PERRL with EOMI bilaterally. Sclera anicteric. Palpebral conjunctiva pink and moist with no injection noted. EARS - No deformities of external structures noted on gross examination bilaterally. No pain elicited with palpation of the tragus bilaterally. External auditory canals without discharge or otorrhea. Tympanic membranes pearly phelps without retraction or bulging. NOSE - Midline and without cyanosis. No epistaxis or purulent drainage noted. Septum midline without deviation or septal hematoma noted. MOUTH/OROPHARYNX - Without perioral cyanosis. Buccal mucosa pink and moist and without leukoplakia. Tongue midline with equal elevation of palate bilaterally. NECK - Neck with FROM. Supple to palpation. No lymphadenopathy noted. No nuchal rigidity. LUNGS - Chest wall symmetric without accessory muscle use, intercostals retractions, or central cyanosis. Normal vesicular breath sounds CTA B/L. No wheezes, rales, or rhonchi appreciated. CARDIAC - RRR with S1/S2. No murmur, rubs, or gallops appreciated. ABDOMEN - Abdominal contour flat without pulsations or visible masses. BS normoactive all four quadrants. No tenderness, palpable masses, hepatosplenomegaly, or ascites noted. EXTREMITIES - No clubbing or peripheral cyanosis. No pretibial edema present. +3 /5 radial and dorsalis pedis pulses palpated throughout. +2/5 LUE versus right. +3/5 LLE versus right. NEUROLOGIC - Cranial nerves II through XII grossly intact. Sensory intact to light touch throughout. Patellar reflexes +2/4. PSYCH - A&Ox3 and cooperates fully with examiner. Pt is very pleasant and interacts well with examiner. Laboratory Results Last 24 Hours Test 09/29/17 18:19 09/29/17 18:20 09/29/17 20:10 Bedside Glucose 81 mg/dl White Blood Count 7.57 K/uL Red Blood Count 5.01 M/uL Hemoglobin 15.0 g/dL Hematocrit 45.4 % Mean Corpuscular Volume 90.6 fL Mean Corpuscular Hemoglobin 29.9 pg Mean Corpuscular Hemoglobin Concent 33.0 g/dl Platelet Count 296 K/uL Mean Platelet Volume 10.2 fL Neutrophils (%) (Auto) 49.4 % Lymphocytes (%) (Auto) 36.5 % Monocytes (%) (Auto) 9.8 % Eosinophils (%) (Auto) 3.3 % Basophils (%) (Auto) 0.9 % Neutrophils # (Auto) 3.74 K/uL Lymphocytes # (Auto) 2.76 K/uL Monocytes # (Auto) 0.74 K/uL Eosinophils # (Auto) 0.25 K/uL Basophils # (Auto) 0.07 K/uL RDW Standard Deviation 43.0 fL RDW Coefficient of Variation 13.0 % Immature Granulocyte % (Auto) 0.1 % Immature Granulocyte # (Auto) 0.01 K/uL Prothrombin Time 10.2 SECONDS Prothromb Time International Ratio 1.0 Activated Partial Thromboplast Time 26.2 SECONDS Partial Thromboplastin Ratio 1.0 Sodium Level 139 mmol/L Potassium Level 4.6 mmol/L Chloride Level 106 mmol/L Carbon Dioxide Level 26 mmol/L Anion Gap 7.0 mmol/L Blood Urea Nitrogen 23 mg/dl Creatinine 0.97 mg/dl Est Creatinine Clear Calc Drug Dose 39.7 ml/min Estimated GFR () 60.9 Estimated GFR (Non- 52.5 BUN/Creatinine Ratio 24.0 Random Glucose 86 mg/dl Calcium Level 10.0 mg/dl Magnesium Level 2.3 mg/dl Total Creatine Kinase 74 U/L Creatine Kinase MB 1.2 ng/ml Creatine Kinase MB Ratio 1.6 Troponin I < 0.015 ng/ml Urine Color YELLOW Urine Appearance CLEAR Urine pH 6.5 Urine Specific Silver 1.014 Urine Protein NEG Urine Glucose (UA) NEG Urine Ketones NEG Urine Occult Blood NEG Urine Nitrite NEG Urine Bilirubin NEG Urine Urobilinogen NEG Urine Leukocyte Esterase NEG Diagnostic Results Radiological imaging and reports were reviewed by myself. Radiologist's Interpretation as follows: CHEST ONE VIEW PORTABLE CLINICAL HISTORY: Stroke mental status change COMPARISON STUDY: 11/08/2016 FINDINGS: The bones soft tissues and hemidiaphragms are normal. The cardiomediastinal silhouette is normal. The lungs are clear. The pulmonary vasculature is normal. IMPRESSION: Negative chest. HEAD WITHOUT CONTRAST (CT) CT DOSE: 537.48 mGy.cm HISTORY: Mental status change Stroke TECHNIQUE: Multiaxial CT images of the head were performed without the use of intravenous contrast. A dose lowering technique was utilized adhering to the principles of ALARA. Comparison: 12/09/2015 Findings: The paranasal sinuses and mastoid air cells are clear. Shunt catheter in good position. No evidence for hydrocephalus. Moderate chronic small vessel change of aging. No acute intracranial abnormality. Impression: Chronic and postoperative change. No acute process. Assessment & Plan (1) Hypertension (2) Received intravenous tissue plasminogen activator (tPA) in emergency department (3) Normal pressure hydrocephalus (4) S/P GEROPSYCHOLOGIST shunt (5) CVA (cerebral vascular accident) (6) History of DVT (deep vein thrombosis) (7) Hypertensive urgency Reason Critically Ill: 87-year-old female status post TPA administration in the setting of acute CVA with LEFT-sided residual deficits requiring close hemodynamic monitoring. Neuro - * [facility] ICU: NEGATIVE * CVA w/ LEFT sided deficits: * CT w/o contrast shows no acute bleed. * s/p TPA * MRI for further eval. * Carotid US/Echo * Neuro checks per protocol. * 24hr post TPA orders. * Monitor for any neurological changes/bleeding. * Normal Pressure Hydrocephalus: * Shunt in place w/o issue. * Will continue to monitor for any changes. Cardiac - * Hypertensive Urgency: * Initial BPs in the 200s * Received IV Labetalol. * Permissive HTN initially. * Will add Cardene gtt if persistently hypertensive. * Trend cardiac enzymes. * AM Echo * Monitor on tele s/p CVA. Respiratory - * No h/o pulmonary disease. * Continue to monitor pulse oximetry closely. GI - * Recent diarrhea. * Has improved recently. * Consider C. diff evaluation - less concerned at this point. RENAL/LYTES - * No significant electrolyte derangements. * Monitor - replace appropriately. - * No concerns a this point. ENDO - * No h/o DM or Thyroid Dz * BSG w/ ISS/gtt per protocol. HEME - * Stable H&H prior to TPA administration. * Monitor closely for any post-TPA bleeding. ID - * No c/o infection at this point. LINES/IV ACCESS - * PIVs x2 DVT PROPHYLAXIS - * Will hold on chemoprophylaxis overnight s/p TPA administration. * Hold on SCDs pending duplex in the patient with a h/o DVTs. CODE STATUS - * After lengthy conversation with the patient and family, she requests to be a DO NOT RESUSCITATE in the event of any change in her condition. Additionally, the patient is aware that she is at high risk status post TPA administration with her comorbidities. She reports that she WOULD NOT wish to undergo any surgical intervention in the event she were to bleed. I have personally spent 35 minutes of critical care time in the direct management of this patient. This is a life/limb threatening event. This includes time spent evaluating patient, direct bedside care, chart review, placing orders, interpretation of diagnostic studies, discussion with consultants, patient, and family members, as well as other required patient management activities. This time is exclusive of all separately billable procedures, and teaching time and separate from and in addition to any other critical care service time. Thank you for this consultation allow us to be part of this patient's care. Please refer to my attending physician's documentation for any further recommendations. I have personally evaluated and examined this patient. I agree with assessment and plan of Opal Patrick PA-C. I personally interviewed the patient from 1914 until 1944, this evaluation took place prior to the independent work by Mason Patrick after I transferred care to him at 1944 I also discussed coordination of care with Dr. Allen. 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 She recently had a intraventricular drain placed in November 2016 however this is greater than 6 months, she had been on Eliquis for a second reportedly unprovoked DVT ( the initial DVT was possibly a superficial DVT with the second being a deep vein thrombosis). The patient has been having gastrointestinal difficulties and a family friend reported that Eliquis may contain lactulose, they underwent a trial of removing the Eliquis for 3 weeks 2 weeks into the trial she did not notice any improvement so she was restarting the Eliquis on her own, she is not on full dose Eliquis currently and because of this, the stroke service felt she was an appropriate candidate for TPA. I had an extensive discussion with the patient and the patient's son regarding goals of care should the patient suffer intracranial hemorrhage. I do believe she is of the higher risk population given there is a intraventricular shunt, advanced age, and initial blood pressures were elevated, this corrected with medication.. She does not want any neurosurgical intervention nor does she want cardiac resuscitation nor intubation should she decompensate. Patient will be admitted to the intensive care unit, she will undergo frequent neuro checks. I have personally spent 30 minutes of critical care time in the direct management of this patient. This is a life/limb threatening event. This includes time spent evaluating patient, direct bedside care, chart review, placing orders, interpretation of diagnostic studies, discussion with consultants, patient, and/or family members regarding treatment decisions, as well as other required patient management activities. This time is exclusive of all separately billable procedures, and teaching time and separate from and in addition to any other critical care service time. Problem Qualifiers (1) Hypertension: Hypertension type: essential hypertension Qualified Codes: I10 - Essential ( primary) hypertension
[2017-09-29] MEDS ORDERED: ACETAMINOPHEN IV 650 MG in EMPTY BAG 0 ML IV PRN (21:30)
--- NOTE | 2017-09-29 21:42 | History and Physical ---
History & Physical Date & Time of Service: Sep 29, 2017 at 21:42 Chief Complaint: Stroke Primary Care Physician: Morgan Wen M.D. History of Present Illness Source: patient, family The patient is an 87-year-old female who presents to the emergency department via EMS with complaint of left hand numbness and left leg weakness that began about 2 hours prior to arrival. The patient's main complaint is that she feels like her left hand is not working correctly. She has had some intermittent dizziness, and headaches that have occurred at night but resolved by morning. She is status post a JEWEL [employer]IPPER shunt placement November 2016. Her son is present in the ED, to corroborate and add to her history. A stroke alert was called in the emergency department by Dr. Stacy, and [facility] neurology ultimately advised to administration of TPA, which was undertaken due to patient 's history of high level of functionality. Past Medical/Surgical History Medical Problems: (1) Breast cancer (2) Bronchitis (3) C. difficile colitis (4) DVT (deep venous thrombosis) (5) History of DVT (deep vein thrombosis) (6) Hx Of Breast Malignancy (7) Hx-Venous Thrombosis&Embolism (8) Lumbar Disc Displacement (9) Osteoporosis Nos (10) Pure Hypercholesterolem (11) Spondylolisthesis (12) Stroke (13) Swelling of left extremity (14) Swelling of left lower extremity Surgical Problems: (1) Hx of lumbosacral spine surgery (2) Hx of vaginal hysterectomy Family History Gallbladder disease Heart disease Lung disease Social History Smoking Status: Never Smoker Smokeless Tobacco Use: No Alcohol Use: none Drug Use: none Marital Status: Housing status: lives alone Occupational Status: retired Immunizations History of Influenza Vaccine: Yes History of Tetanus Vaccine?: Yes History of Pneumococcal: Yes Pneumococcal Date: Mar 13, 2012 History of Hepatitis B Vaccine: No Allergies Coded Allergies: Penicillins (Verified Allergy, Unknown, HAD KEFZOL W/O PROBLEM, 11/19/16) 12/01 HAD KEFZOL IN RR W/O PROBLEM Macrolides (Verified Adverse Reaction, Mild, MYCINS- GI SYMPTOMS, 11/19/16) Home Medications Scheduled Losartan Potassium (Cozaar), 50 MG PO QAM Review of Systems The patient denies chest pain, palpitations, shortness of breath, dyspnea on exertion, cough, lower extremity swelling, sore throat, fevers, chills, sweats, vomiting, diarrhea , constipation, abdominal pain, pelvic pain, blood in urine or stool, dysuria, urinary frequency or urgency, loss of consciousness, rash, generalized arthralgias or myalgias, back or neck pain, or night sweats. The review of systems is otherwise negative other than for that already noted above, and at least 10 systems have been reviewed. Physical Exam Vital Signs Date Time Temp Pulse Resp B/P (MAP) Pulse Ox O2 Delivery O2 Flow Rate FiO2 09/29/17 20:31 90 19 130/91 94 09/29/17 20:26 89 16 97 09/29/17 20:21 161/98 09/29/17 20:16 89 15 98 09/29/17 20:15 37.0 85 20 130/91 98 Room Air 09/29/17 20:11 156/103 09/29/17 20:06 88 23 99 09/29/17 20:01 152/89 09/29/17 19:57 88 17 99 09/29/17 19:51 147/87 09/29/17 19:47 92 26 99 09/29/17 19:41 167/101 09/29/17 19:37 88 20 100 09/29/17 19:32 87 13 100 09/29/17 19:31 152/90 09/29/17 19:30 164/98 09/29/17 19:22 88 16 09/29/17 19:16 184/105 09/29/17 19:12 88 16 09/29/17 19:07 171/115 09/29/17 19:01 174/100 09/29/17 18:54 98 26 97 09/29/17 18:51 179/107 09/29/17 18:46 171/111 09/29/17 18:31 173/82 09/29/17 18:27 156/96 09/29/17 18:27 88 20 156/96 99 Room Air 09/29/17 18:24 89 17 100 09/29/17 18:23 98 Room Air 09/29/17 18:23 88 09/29/17 18:14 37.1 92 20 204/112 98 Room Air 09/29/17 18:12 204/112 The patient is awake, alert and oriented 3, normocephalic and atraumatic, lying in bed and in no acute distress. HEENT--PERRL, EOMI, mucous membranes and oropharynx normal. Neck--supple. No JVD. No bruits. Thyroid normal, trachea midline, no adenopathy. Heart--normal S1 and S2. No murmurs, rubs or gallops. Lungs--clear bilaterally, no respiratory distress, no accessory muscle use. Abdomen--normal bowel sounds and soft. Nontender. Nondistended, no hernias or masses, no organomegaly. Extremities--no cyanosis or clubbing. No edema. There are good distal pulses b/ l. Dermatologic--normal skin turgor, normal color, no abnormal lymph nodes, no rash. Neurologic--cranial nerves II through XII grossly intact. Decreased sensation and telecommunications facility examiner strength left hand to 4+/5, with right upper extremity 5/5. Right lower extremity normal sensation and normal strength 5/5. Left lower extremity normal sensation with strength 4+/5. Rheumatologic--normal examination taking into account neuro deficit. Psychiatric--normal affect. Diagnostics Laboratory Results Results Past 24 Hours Test 09/29/17 18:19 09/29/17 18:20 09/29/17 20:10 Range/Units Bedside Glucose 81 70-90 mg/dl White Blood Count 7.57 4.8-10.8 K/uL Red Blood Count 5.01 4.2-5.4 M/uL Hemoglobin 15.0 12.0-16.0 g/dL Hematocrit 45.4 37-47 % Mean Corpuscular Volume 90.6 80-100 fL Mean Corpuscular Hemoglobin 29.9 25-34 pg Mean Corpuscular Hemoglobin Concent 33.0 32-36 g/dl Platelet Count 296 130-400 K/uL Mean Platelet Volume 10.2 7.4-10.4 fL Neutrophils (%) (Auto) 49.4 % Lymphocytes (%) (Auto) 36.5 % Monocytes (%) (Auto) 9.8 % Eosinophils (%) (Auto) 3.3 % Basophils (%) (Auto) 0.9 % Neutrophils # (Auto) 3.74 1.4-6.5 K/uL Lymphocytes # (Auto) 2.76 1.2-3.4 K/uL Monocytes # (Auto) 0.74 0.11-0.59 K/uL Eosinophils # (Auto) 0.25 0-0.5 K/uL Basophils # (Auto) 0.07 0-0.2 K/uL RDW Standard Deviation 43.0 36.4-46.3 fL RDW Coefficient of Variation 13.0 11.5-14.5 % Immature Granulocyte % (Auto) 0.1 % Immature Granulocyte # (Auto) 0.01 0.00-0.02 K/uL Prothrombin Time 10.2 9.0-12.0 SECONDS Prothromb Time International Ratio 1.0 0.9-1.1 Activated Partial Thromboplast Time 26.2 21.0-31.0 SECONDS Partial Thromboplastin Ratio 1.0 Sodium Level 139 136-145 mmol/L Potassium Level 4.6 3.5-5.1 mmol/L Chloride Level 106 98-107 mmol/L Carbon Dioxide Level 26 21-32 mmol/L Anion Gap 7.0 3-11 mmol/L Blood Urea Nitrogen 23 7-18 mg/dl Creatinine 0.97 0.60-1.20 mg/dl Est Creatinine Clear Calc Drug Dose 39.7 ml/min Estimated GFR () 60.9 Estimated GFR (Non- 52.5 BUN/Creatinine Ratio 24.0 10-20 Random Glucose 86 70-99 mg/dl Calcium Level 10.0 8.5-10.1 mg/dl Magnesium Level 2.3 1.8-2.4 mg/dl Total Creatine Kinase 74 26-192 U/L Creatine Kinase MB 1.2 0.5-3.6 ng/ml Creatine Kinase MB Ratio 1.6 0-3.0 Troponin I < 0.015 0-0.045 ng/ml Urine Color YELLOW Urine Appearance CLEAR CLEAR Urine pH 6.5 4.5-7.5 Urine Specific [place] 1.014 1.000-1.030 Urine Protein NEG NEG Urine Glucose (UA) NEG NEG Urine Ketones NEG NEG Urine Occult Blood NEG NEG Urine Nitrite NEG NEG Urine Bilirubin NEG NEG Urine Urobilinogen NEG NEG Urine Leukocyte Esterase NEG NEG Microbiology Results 09/29/17 MRSA DNA Surveillance Screen, Received Pending Diagnostic Radiology Patient Name: SHAY BUSTOS Unit Number: [id number] Dictated: 09/29/171808 Transcribed: 09/29/171808 MS Printed Date/Time: [~ rep prt dt]/[~ rep prt tm] [~ rep ct labl] - [~ rep ct ivnm] [facility] Radiology Department [place], [place] [id number] Dictated: 09/29/171808 Transcribed: 09/29/171808 MS Printed Date/Time: [~ rep prt dt]/[~ rep prt tm] [~ rep ct labl] - [~ rep ct ivnm] [~ rep ct add3]] HEAD WITHOUT CONTRAST (CT) CT DOSE: 537.48 mGy.cm HISTORY: Mental status change Stroke TECHNIQUE: Multiaxial CT images of the head were performed without the use of intravenous contrast. A dose lowering technique was utilized adhering to the principles of ALARA. Comparison: 12/09/2015 Findings: The paranasal sinuses and mastoid air cells are clear. Shunt catheter in good position. No evidence for hydrocephalus. Moderate chronic small vessel change of aging. No acute intracranial abnormality. Impression: Chronic and postoperative change. No acute process. The above report was generated using voice recognition software. It may contain grammatical, syntax or spelling errors. Electronically signed by: Markie Loredo M.D. 09/29/2017 6:11 PM Dictated Date/Time: 09/29/2017 6:09 PM The status of this report is Signed. Draft = Not yet reviewed or approved by Radiologist. Signed = Reviewed and approved by Radiologist. <AttendingPhy></AttendingPhy> <FamilyPhy>Morgan Wen M.D.</FamilyPhy > <PrimaryPhy>Morgan Wen M.D.</PrimaryPhy> <UnitNumber>[id number]</ UnitNumber> <VisitNumber>[id number]</VisitNumber> <PatientName>AKASHSHAY</ PatientName> <DateOfBirth>1930</DateOfBirth> <Location>[facility]</Location> < ServiceDate>09/29/17</ServiceDate> <MNE>ESINDI</MNE> <OrderingPhy>Garrick Stacy D.O.</OrderingPhy> <OrderingPhyMNE>f rep ord dr mne</OrderingPhyMNE> <DictatingPhyMNE>f rep dict dr vergara</DictatingPhyMNE> <CCListMNE>f rep ct mne</ CCListMNE> <AdmittingPhyMNE>f pt admit dr vergara</AdmittingPhyMNE> <AttendingPhyMNE >f pt attend dr vergara</AttendingPhyMNE> <ConsultingPhyMNE>f pt consult dr vergara</ConsultingPhyMNE> <FamilyPhyMNE>f pt fam dr vergara</FamilyPhyMNE> <OtherPhyMNE>f pt other dr vergara</OtherPhyMNE> < PrimaryPhyMNE>f pt prim care dr vergara</PrimaryPhyMNE> <ReferringPhyMNE>f pt referring dr vergara</ReferringPhyMNE> Patient Name: SHAY BUSTOS Unit Number: [id number] Dictated: 09/29/171828 Transcribed: 09/29/171828 MS Printed Date/Time: [~ rep prt dt]/[~ rep prt tm] [~ rep ct labl] - [~ rep ct ivnm] [facility] Radiology Department [place] [id number] Dictated: 09/29/171828 Transcribed: 09/29/171828 MS Printed Date/Time: [~ rep prt dt]/[~ rep prt tm] [~ rep ct labl] - [~ rep ct ivnm] [~ rep ct add3]] CHEST ONE VIEW PORTABLE CLINICAL HISTORY: Stroke mental status change COMPARISON STUDY: 11/08/2016 FINDINGS: The bones soft tissues and hemidiaphragms are normal. The cardiomediastinal silhouette is normal. The lungs are clear. The pulmonary vasculature is normal. IMPRESSION: Negative chest. The above report was generated using voice recognition software. It may contain grammatical, syntax or spelling errors. Electronically signed by: Markie Loredo M.D. 09/29/2017 6:30 PM Dictated Date/Time: 09/29/2017 6:29 PM The status of this report is Signed. Draft = Not yet reviewed or approved by Radiologist. Signed = Reviewed and approved by Radiologist. <AttendingPhy></AttendingPhy> <FamilyPhy>Morgan Wen M.D.</FamilyPhy > <PrimaryPhy>Morgan Wen M.D.</PrimaryPhy> <UnitNumber>[id number]</ UnitNumber> <VisitNumber>[id number]</VisitNumber> <PatientName>SHAY BUSTOS Guerline</ PatientName> <DateOfBirth>1930</DateOfBirth> <Location>[facility]</Location> < ServiceDate>09/29/17</ServiceDate> <MNE>ESINDI</MNE> <OrderingPhy>Garrick Stacy D.O.</OrderingPhy> <OrderingPhyMNE>f rep ord dr vergara</OrderingPhyMNE> <DictatingPhyMNE>f rep dict dr vergara</DictatingPhyMNE> <CCListMNE>f rep ct mne</ CCListMNE> <AdmittingPhyMNE>f pt admit dr vergara</AdmittingPhyMNE> <AttendingPhyMNE >f pt attend dr vergara</AttendingPhyMNE> <ConsultingPhyMNE>f pt consult dr vergara</ConsultingPhyMNE> <FamilyPhyMNE>f pt fam dr vergara</FamilyPhyMNE> <OtherPhyMNE>f pt other dr vergara</OtherPhyMNE> < PrimaryPhyMNE>f pt prim care dr vergara</PrimaryPhyMNE> <ReferringPhyMNE>f pt referring dr vergara</ReferringPhyMNE> EKG SHAY BUSTOS ID:[id number] 29-SEP-2017 18:14:11 [facility] Normal sinus rhythm Normal ECG When compared with ECG of 30-APR-2015 13:25, No significant change was found 25mm/s 10mm/mV 150Hz 8.0 SP2 12SL 241 BIJAL: 16 Referred by: Unconfirmed Vent. rate 96 BPM PA interval 188 ms QRS duration 80 ms QT/QTc 344/434 ms P-R-T axes 63 59 63 1930 (87 yr) Female 1lb Room:A1 Loc:15 Baggage Agent Supervisor:AILYN GOMEZ Test Impression Assessment and Plan Right hemispheric CVA/left-sided numbness and weakness-- The patient will be admitted to the ICU for serial cardiac enzymes, serial EKG' s, cardiac rhythm monitoring and a 2-D echocardiogram with Dopplers. Admission protocol for CVA post TPA administration. CT of head negative. Order MRI brain without contrast. Order MRA head without contrast. Order carotid Dopplers. Continue losartan 50 mg p.o. every morning. Since giving TPA will target systolic blood pressure to be 140-160. Serial laboratories per protocol. Consult PT/OT/social work professor/neurology/manager environmental services. Advanced Directives Existing Advance Directive: Yes Existing Living Will: Yes Resuscitation Status VTE Prophylaxis Will order VTE Prophylaxis: Yes Note Total Time: Critical Care 30 - 74 minutes
[2017-09-30] VITALS (28 sets, daily range): BP systolic 112–163; BP diastolic 59–116; PULSE 69–91; TEMP 36.6–36.8; O2SAT 94–98
[2017-09-30 02:10] LABS: CKMB 1.9 ng/ml (0.5-3.6)
[2017-09-30 04:43] LABS: BASO % 0.5 %; BASO ABS # 0.03 K/uL (0-0.2); EOS % 2.2 %; EOS ABS # 0.14 K/uL (0-0.5); HEMATOCRIT 38.4 % (37-47); HEMOGLOBIN 12.6 g/dL (12.0-16.0); IG# 0.01 K/uL (0.00-0.02); LYMPH % 33.8 %; LYMPH ABS # 2.18 K/uL (1.2-3.4); MEAN CELL VOLUME 90.4 fL (80-100); MEAN CORPUSCULAR HEMOGLOBIN 29.6 pg (25-34); MEAN CORPUSCULAR HGB CONC 32.8 g/dl (32-36); MEAN PLATELET VOLUME 10.5 fL (7.4-10.4); MONO % 11.8 %; MONO ABS # 0.76 K/uL (0.11-0.59); NEUT % 51.5 %; NEUT ABS # 3.33 K/uL (1.4-6.5); PLATELET COUNT 208 K/uL (130-400); RED CELL DISTRIBUTION WIDTH CV 13.1 % (11.5-14.5); WHITE BLOOD COUNT 6.45 K/uL (4.8-10.8)
[2017-09-30 05:08] LABS: CREATININE 0.84 mg/dl (0.60-1.20)
[2017-09-30 05:12] LABS: CALCIUM 8.1 mg/dl (8.5-10.1)
[2017-09-30 06:08] LABS: POTASSIUM 4.2 mmol/L (3.5-5.1)
[2017-09-30 06:48] LABS: HEMOGLOBIN A1C 5.6 % (4.5-5.6)
--- NOTE | 2017-09-30 06:57 | DIAGNOSTIC IMAGING REPORT ---
ULTRASOUND OF THE CAROTID ARTERIES CLINICAL HISTORY: Stroke COMPARISON STUDY: July 2015 TECHNIQUE: Real-time, grayscale, and color Doppler sonography of the carotid arteries was performed. Imaging reviewed in the transverse and longitudinal planes. NASCET criteria was utilized for stenosis calcification. FINDINGS: There is mild atherosclerotic plaque present . The peak systolic velocity within the right internal carotid artery is 58 cm/sec. The systolic velocity ratio of right internal to common carotid artery is 0.7. The peak systolic velocity within the left internal carotid artery is 68 cm/sec. The systolic velocity ratio left internal to common carotid artery is 0.9. Antegrade flow is seen in the vertebral arteries. The external carotid arteries are patent. IMPRESSION: No evidence of hemodynamically significant carotid stenosis. Electronically signed by: Kong Burk M.D. 09/30/2017 6:55 AM Dictated Date/Time: 09/30/2017 6:54 AM
--- NOTE | 2017-09-30 07:01 | DIAGNOSTIC IMAGING REPORT ---
BILATERAL LOWER EXTREMITY VENOUS DOPPLER HISTORY: Lower extremity swelling. COMPARISON STUDY: None. FINDINGS: There is normal compressibility, flow, and augmentation within the bilateral lower extremity deep venous systems. IMPRESSION: No DVT within the right or left lower extremity. Electronically signed by: Junior Hathaway M.D. 09/30/2017 6:59 AM Dictated Date/Time: 09/30/2017 6:59 AM
--- NOTE | 2017-09-30 09:51 | Critical Care Progress Note ---
Critical Care Progress Note Date of Service Sep 30, 2017. ICU Day ICU Day Number: [address] Sands Subjective Patient is doing well this am. Does report that she is slouching to the right in bed, feels that it is 2/2 her left sided weakness. The patient has not been out of bed, tolerating her breakfast well, no issues with chewing or swallowing. Denies visual changes or dizziness. Objective GENERAL -NAD SKIN - Without rashes. HEAD - NC/AT. EYES - PERRL with EOMI bilaterally. Sclera anicteric. Palpebral conjunctiva pink and moist with no injection noted. NECK - Neck with FROM. Supple to palpation. No lymphadenopathy noted. No nuchal rigidity. LUNGS - CTAB, no wheezing, rales or rhonchi CARDIAC - RRR with S1/S2. No murmur, rubs, or gallops appreciated. ABDOMEN -. No tenderness, palpable masses, hepatosplenomegaly, or ascites noted. EXTREMITIES - No clubbing or peripheral cyanosis. NEUROLOGIC - Cranial nerves II through XII grossly intact. Sensory intact to light touch throughout. Symmetric strength in lower extremity. Right upper extremity 4/5, left upper extremity 3/5, against resistance. PSYCH - A&Ox3 and cooperates fully with examiner. Pt is very pleasant and interacts well with examiner. Assessment & Plan 87 yo female with PMH of HTN presents to ICU following stroke. Continue hemodynamic monitoring s/p TPA. Neuro - Suspected right hemisphere stroke--s/p TPA (19:20, 09/30/2017) - Left sided deficits, namely left upper ext. remain this morning - CT was negative, no indication of hemorrhage - H/o hydrocephalus and shunting - Patient has been off of Eliquis since August 17 - MRI ordered for today, currently on ASA 81mg - Neurology following, appreciate recommendations - Readdress s/p TPA, day 2 orders Cardio - H/o HTN, continue Cozaar 50 mg - Cholesterol checked, WNL - Patient started on 40 mg Lipitor - Will follow am ECHO, r/o mural thrombus, valvular issues, readdress further anticoagulation - Carotid doppler was unremarkable for stenosis Resp - No pulmonary dx, negative CXR, continue to monitor pulse ox GI - Recent bouts of diarrhea, has been improving - Continue AHA diet Renal - No significant electrolyte derangement, dc fluids - Continue to monitor and replete - No concerns at this time Endo - A1C 5.6 - No h/o DM/thyroid disease Heme - Stable, closely monitor H/H s/p TPA ID - No concern for infection, continue to follow fever curve Lines - PIV x 2 DVT ppx - Doppler USG: no DVT in LE BL - H/o of DVT in the past, reports two prior episodes. Will review records and determine need for outpatient anticoagulation. Code - DNR Dr. Waters was resident physician during care of patient. I separately evaluated patient for tony portions of the history and the exam. I was present during the critical portion of medical desicsion making, and I discussed the case with the resident. I generally agree with the findings and plan. Patient will be 24 hours post TPA at 1916. Symptomatically the patient feels improved. Patient underwent venous duplex no evidence of DVT, will order SCDs for additional DVT prophylaxis. I have instructed Dr. Waters to obtain prior records to further elucidate the exact etiology and sequence of the patient's reported DVTs. This will be helpful in elucidating with the patient requires full systemic anticoagulation or just antiplatelet therapy. Per our radiology records the patient had initial DVT on March 11, 2012 with extensive thrombus within the greater saphenous vein that extends proximally into the common femoral vein, the second DVT occurred on November 19, 2016 the deep venous thrombus within the right posterior tibial vein. Data Medications: Current Inpatient Medications Medications (Trade) Dose Ordered Sig/Reji Route Start Time Stop Time Status Last Admin Dose Admin Miscellaneous Information (Pharmacist Discharge Med Rec Consult) 1 ea UD PRN N/A 09/29/17 19:30 10/29/17 19:29 Miscellaneous Information (Icu Protocol For Hyperglycemia) 1 ea PRN PRN N/A 09/29/17 19:30 10/01/17 19:29 Losartan Potassium (coZAAR TAB) 50 mg QAM PO 09/30/17 09:00 10/30/17 08:59 Atorvastatin Calcium (Lipitor Tab) 40 mg QAM PO 09/30/17 10:00 10/30/17 09:59 Acetaminophen (Tylenol Tab) 650 mg Q6H PRN PO 09/30/17 09:15 10/30/17 09:14 Vital Signs: Date Time Temp Pulse Resp B/P (MAP) Pulse Ox O2 Delivery O2 Flow Rate FiO2 09/30/17 09:10 80 19 141/78 (99) 97 Room Air 09/30/17 08:10 85 20 128/73 (91) 96 Room Air 09/30/17 08:00 Room Air 09/30/17 07:10 36.6 73 18 132/71 (91) 97 Room Air 09/30/17 06:10 71 18 128/71 (90) 96 Room Air 09/30/17 05:10 74 18 112/64 (80) 94 Room Air 09/30/17 04:10 36.6 74 16 124/70 (88) 96 Room Air 09/30/17 03:10 73 16 130/73 (92) 95 Room Air 09/30/17 02:40 78 16 136/81 (99) 95 Room Air 09/30/17 02:10 83 18 125/65 (85) 95 Room Air 09/30/17 01:40 79 20 136/69 (91) 97 Room Air 09/30/17 01:10 91 22 154/81 (105) 97 Room Air 09/30/17 00:40 79 20 125/70 (88) 98 Room Air 09/30/17 00:10 79 16 128/66 (86) 95 Room Air 09/29/17 23:59 Room Air 09/29/17 23:40 36.6 77 18 115/61 (79) 95 Room Air 09/29/17 23:10 79 16 119/63 (81) 96 Room Air 09/29/17 22:40 36.8 87 18 133/70 (91) 98 Room Air 09/29/17 22:10 36.7 87 18 130/73 (92) 99 Room Air 09/29/17 22:00 88 98 18 21:40 36.7 88 20 130/72 (91) 100 Room Air 09/29/17 21:10 36.8 90 16 143/73 (96) 100 Room Air 09/29/17 20:59 36.5 91 20 136/79 100 Room Air 18 20:55 36.7 91 20 136/79 (98) 100 Room Air 18 20:31 90 19 130/91 94 18 20:26 89 16 97 18 20:21 161/98 18 20:16 89 15 98 18 20:15 37.0 85 20 130/91 98 Room Air 09/29/17 20:11 156/103 09/29/17 20:06 88 23 99 09/29/17 20:01 152/89 09/29/17 19:57 88 17 99 09/29/17 19:51 147/87 09/29/17 19:47 92 26 99 09/29/17 19:41 167/101 09/29/17 19:37 88 20 100 09/29/17 19:32 87 13 100 09/29/17 19:31 152/90 09/29/17 19:30 164/98 09/29/17 19:22 88 16 09/29/17 19:16 184/105 09/29/17 19:12 88 16 09/29/17 19:07 171/115 09/29/17 19:01 174/100 09/29/17 18:54 98 26 97 09/29/17 18:51 179/107 09/29/17 18:46 171/111 09/29/17 18:31 173/82 09/29/17 18:27 156/96 09/29/17 18:27 88 20 156/96 99 Room Air 09/29/17 18:24 89 17 100 09/29/17 18:23 98 Room Air 09/29/17 18:23 88 09/29/17 18:14 37.1 92 20 204/112 98 Room Air 09/29/17 18:12 204/112 Laboratory Results: Last 24 Hours Test 09/29/17 18:19 09/29/17 18:20 09/29/17 20:10 09/30/17 01:33 Bedside Glucose 81 mg/dl White Blood Count 7.57 K/uL Red Blood Count 5.01 M/uL Hemoglobin 15.0 g/dL Hematocrit 45.4 % Mean Corpuscular Volume 90.6 fL Mean Corpuscular Hemoglobin 29.9 pg Mean Corpuscular Hemoglobin Concent 33.0 g/dl Platelet Count 296 K/uL Mean Platelet Volume 10.2 fL Neutrophils (%) (Auto) 49.4 % Lymphocytes (%) (Auto) 36.5 % Monocytes (%) (Auto) 9.8 % Eosinophils (%) (Auto) 3.3 % Basophils (%) (Auto) 0.9 % Neutrophils # (Auto) 3.74 K/uL Lymphocytes # (Auto) 2.76 K/uL Monocytes # (Auto) 0.74 K/uL Eosinophils # (Auto) 0.25 K/uL Basophils # (Auto) 0.07 K/uL RDW Standard Deviation 43.0 fL RDW Coefficient of Variation 13.0 % Immature Granulocyte % (Auto) 0.1 % Immature Granulocyte # (Auto) 0.01 K/uL Prothrombin Time 10.2 SECONDS Prothromb Time International Ratio 1.0 Activated Partial Thromboplast Time 26.2 SECONDS Partial Thromboplastin Ratio 1.0 Sodium Level 139 mmol/L Potassium Level 4.6 mmol/L Chloride Level 106 mmol/L Carbon Dioxide Level 26 mmol/L Anion Gap 7.0 mmol/L Blood Urea Nitrogen 23 mg/dl Creatinine 0.97 mg/dl Est Creatinine Clear Calc Drug Dose 39.7 ml/min Estimated GFR () 60.9 Estimated GFR (Non- 52.5 BUN/Creatinine Ratio 24.0 Random Glucose 86 mg/dl Estimated Average Glucose 114 mg/dl Hemoglobin A1c 5.6 % Calcium Level 10.0 mg/dl Magnesium Level 2.3 mg/dl Total Creatine Kinase 74 U/L U/L Creatine Kinase MB 1.2 ng/ml 1.9 ng/ml Creatine Kinase MB Ratio 1.6 Troponin I < 0.015 ng/ml 0.064 ng/ml Urine Color YELLOW Urine Appearance CLEAR Urine pH 6.5 Urine Specific [place] 1.014 Urine Protein NEG Urine Glucose (UA) NEG Urine Ketones NEG Urine Occult Blood NEG Urine Nitrite NEG Urine Bilirubin NEG Urine Urobilinogen NEG Urine Leukocyte Esterase NEG Test 09/30/17 04:29 09/30/17 05:40 09/30/17 05:42 09/30/17 08:10 White Blood Count 6.45 K/uL Red Blood Count 4.25 M/uL Hemoglobin 12.6 g/dL Hematocrit 38.4 % Mean Corpuscular Volume 90.4 fL Mean Corpuscular Hemoglobin 29.6 pg Mean Corpuscular Hemoglobin Concent 32.8 g/dl Platelet Count 208 K/uL Mean Platelet Volume 10.5 fL Neutrophils (%) (Auto) 51.5 % Lymphocytes (%) (Auto) 33.8 % Monocytes (%) (Auto) 11.8 % Eosinophils (%) (Auto) 2.2 % Basophils (%) (Auto) 0.5 % Neutrophils # (Auto) 3.33 K/uL Lymphocytes # (Auto) 2.18 K/uL Monocytes # (Auto) 0.76 K/uL Eosinophils # (Auto) 0.14 K/uL Basophils # (Auto) 0.03 K/uL RDW Standard Deviation 43.0 fL RDW Coefficient of Variation 13.1 % Immature Granulocyte % (Auto) 0.2 % Immature Granulocyte # (Auto) 0.01 K/uL Sodium Level 142 mmol/L Potassium Level mmol/L 4.2 mmol/L Chloride Level 112 mmol/L Carbon Dioxide Level 24 mmol/L Anion Gap 6.0 mmol/L Blood Urea Nitrogen 16 mg/dl Creatinine 0.84 mg/dl Est Creatinine Clear Calc Drug Dose 45.9 ml/min Estimated GFR () 72.4 Estimated GFR (Non- 62.5 BUN/Creatinine Ratio 18.7 Random Glucose 89 mg/dl Calcium Level 8.1 mg/dl Magnesium Level mg/dl 2.1 mg/dl Triglycerides Level 85 mg/dl Cholesterol Level 159 mg/dl HDL Cholesterol 51 mg/dl LDL Cholesterol, Calculated 91 mg/dl VLDL Cholesterol, Calculated 17 mg/dl Cholesterol/HDL Ratio 3.1 Bedside Glucose 103 mg/dl Test 09/30/17 09:24
[2017-09-30] MEDS: ATORVASTATIN 40 MG TAB PO SCH (09:57)
[2017-09-30] MEDS: LOSARTAN POTASSIUM 50 MG TAB PO SCH (09:58)
[2017-09-30 10:18] LABS: CKMB 1.8 ng/ml (0.5-3.6)
--- NOTE | 2017-09-30 10:21 | ECHOCARDIOGRAM REPORT ---
*NOTICE TO RECEIVING DEMOCRAT AGENCY This information is strictly Confidential and protected under [place] law. [place] law prohibits you from making any further disclosure of this information unless further disclosure is expressly permitted by the written consent of the person to whom it pertains or is authorized by law. A general authorization for the release of medical or other information is not sufficient for this purpose. Hospital accepts no responsibility if the information is made available to any other person, INCLUDING THE PATIENT. Interpretation Summary * Name: SHAY BUSTOS Study Date: 09/30/2017 06:52 AM BP: 112/64 mmHg * Patient Location: .[facility]\S\E105\S\1 HR: 74 * : 1930 (M/d/yyyy) Gender: Female Height: 67 in * Age: 87 yrs Ethnicity: [place] Weight: 161 lb * Ordering Physician: Fausto Allen * Referring Physician: Self, Referred * Performed By: Candi Rodriguez RDCS * * Reason For Study: Cerebral ischemia/embolus, post TPA * BSA: 1.8 m2 * -- Conclusions -- * Left ventricular systolic function is normal. * No regional wall motion abnormalities noted. * Ejection Fraction = 60-65%. * There is mild concentric left ventricular hypertrophy. * Grade I diastolic dysfunction, (abnormal relaxation pattern). * Aortic valve sclerosis mild, without significant aortic valvular stenosis. * Mild aortic regurgitation. * Mild to moderate tricuspid regurgitation. * Injection of contrast documented no interatrial shunt. Procedure Details * A complete two-dimensional transthoracic echocardiogram was performed (2D, M-mode, Doppler and color flow Doppler). * A saline contrast injection was performed to assess for cardiac shunting. * The injection was performed through an intravenous line in the right arm. * The attending nurse who injected the saline contrast was Alondra Kinney RN. * A total of 10 cc of agitated saline was given. Left Ventricle * The left ventricle is normal in size. * There is mild concentric left ventricular hypertrophy. * Ejection Fraction = 60-65%. * Left ventricular systolic function is normal. * No regional wall motion abnormalities noted. Right Ventricle * The right ventricle is normal size. * The right ventricular systolic function is normal as assessed by tricuspid annular plane systolic excursion (TAPSE) (normal >1.5 cm). Atria * The left atrium is mildly dilated. * Borderline right atrial enlargement. * Injection of contrast documented no interatrial shunt. Mitral Valve * The mitral valve anatomy is normal. * There is no mitral valve stenosis. * There is mild mitral regurgitation. Tricuspid Valve * The tricuspid valve anatomy is normal. * There is no tricuspid stenosis. * There is mild to moderate tricuspid regurgitation. Aortic Valve * The aortic valve is tricuspid. The leaflet thickness if normal. There is no aortic stenosis, and no significant insufficiency. * The aortic valve opens well. * Aortic valve sclerosis mild, without significant aortic valvular stenosis. * Mild aortic regurgitation. Pulmonic Valve * The pulmonary valve is not well seen, but the Doppler examination is normal without significant regurgitation or stenosis. Great Vessels * Borderline aortic root dilatation. * The pulmonary is not well visualized. Pericardium/Pleural * There is no pericardial effusion. Great Vessels * Normal inferior vena cava size and collapsability with sniff indicates a normal right atrial pressure of 3 mmHg Left Ventricular Diastolic Function * Grade I diastolic dysfunction, (abnormal relaxation pattern). MMode 2D Measurements and Calculations IVSd 0.91 cm LVIDd 3.2 cm LVIDs 2.1 cm LVPWd 0.88 cm IVS/LVPW 1.0 FS 35.8 % EDV(Teich) 41.0 ml ESV(Teich) 13.6 ml EF(Teich) 66.7 % EDV(cubed) 32.8 ml ESV(cubed) 8.7 ml EF(cubed) 73.6 % LV mass(C)d 77.0 grams LV mass(C)dI 41.8 grams/m\S\2 SV(Teich) 27.4 ml SI(Teich) 14.8 ml/m\S\2 SV(cubed) 24.1 ml SI(cubed) 13.1 ml/m\S\2 Ao root diam 3.7 cm Ao root area 10.8 cm\S\2 ACS 1.7 cm LA dimension 1.9 cm asc Aorta Diam 3.6 cm LA/Ao 0.52 LVOT diam 2.0 cm LVOT area 3.0 cm\S\2 LVAd ap4 24.1 cm\S\2 LVLd ap4 7.3 cm EDV(MOD-sp4) 64.2 ml EDV(sp4-el) 67.6 ml LVAs ap4 12.6 cm\S\2 LVLs ap4 5.4 cm ESV(MOD-sp4) 23.4 ml ESV(sp4-el) 24.7 ml EF(MOD-sp4) 63.5 % EF(sp4-el) 63.5 % LVAd ap2 20.7 cm\S\2 LVLd ap2 7.5 cm EDV(MOD-sp2) 47.2 ml EDV(sp2-el) 48.5 ml LVAs ap2 11.4 cm\S\2 LVLs ap2 6.7 cm ESV(MOD-sp2) 18.6 ml ESV(sp2-el) 16.4 ml EF(MOD-sp2) 60.7 % EF(sp2-el) 66.2 % LVLd %diff 2.6 % EDV(MOD-bp) 54.8 ml LVLs %diff 19.0 % ESV(MOD-bp) 21.5 ml EF(MOD-bp) 60.8 % SV(MOD-sp4) 40.8 ml SI(MOD-sp4) 22.1 ml/m\S\2 SV(MOD-sp2) 28.6 ml SI(MOD-sp2) 15.5 ml/m\S\2 SV(MOD-bp) 33.3 ml SI(MOD-bp) 18.1 ml/m\S\2 SV(sp4-el) 42.9 ml SI(sp4-el) 23.3 ml/m\S\2 SV(sp2-el) 32.1 ml SI(sp2-el) 17.4 ml/m\S\2 Doppler Measurements and Calculations MV E max wisam 87.3 cm/sec MV A max wisam 69.8 cm/sec MV E/A 1.3 MV dec time 0.19 sec Ao V2 max 128.2 cm/sec Ao max PG 6.6 mmHg Ao max PG (full) 1.1 mmHg CATHY(V,A) 2.7 cm\S\2 CATHY(V,D) 2.7 cm\S\2 LV V1 max PG 5.5 mmHg LV V1 max 116.9 cm/sec PA V2 max 74.7 cm/sec PA max PG 2.2 mmHg PA acc slope 446.7 cm/sec\S\2 PA acc time 0.12 sec PI max wisam 156.1 cm/sec PI max PG 9.7 mmHg PI dec slope 228.3 cm/sec\S\2 PI P1/2t 200.3 msec TR max wisam 234.8 cm/sec PA pr(Accel) 26.7 mmHg
--- NOTE | 2017-09-30 10:31 | Neurology Consultation ---
Neurology Consultation Date of Consultation: Sep 30, 2017. Attending Physician: Ted Salmon D.O. Primary Care Physician: Morgan Wen M.D. Reason for Consultation: Patient is an 87-year-old, who I was asked to see the request of Dr. Allen, for neurologic consultation regarding stroke History of Present Illness Source: patient, caregiver, clinic records, hospital records This patient does not have any significant history of hypertension, diabetes, heart disease, or previous stroke. In September of 2015, she had dizziness, ataxia, a little trouble with her bladder control and some walking difficulties. An MRI of the brain showed old ischemic changes of a moderate nature and perhaps slightly enlarged ventricles. She saw Dr. Zavala, neurosurgeon in [place], who obtained a radionucleotide cisternogram in October of 2015 which was apparently positive for normal pressure hydrocephalus. Patient then underwent a STUDENT LIAISON OFFICER shunt placement November 15, [address] Zavala. Apparently she did well after the surgery but continues to have urinary incontinence (for years) significant balance issues. She may have a little bit of nonspecific memory problems, particularly short-term, but she does not carry any diagnosis of significant dementia. She was in her usual state of health and lives at the [facility] for the last 2 years. She remembers getting up September 29 around 0900 hours feeling her usual self. She was not particularly ill or tired. She had a normal morning and remembered after lunch going to sit out on the sun porch. Because of some stress from another resident at the [facility] she went inside and somewhere around 1600 hours she attended a cooking class. She remembers learning about how to cook a steak. She was sitting there and had the sudden onset of clumsiness and weakness in the left hand with some dysesthesias. It did not involve the leg or face. Did not get any better and her blood pressure apparently was markedly elevated. She ended up going to the emergency room On September 29, at 1812 hours, blood pressure was 204/112. Temperature was 37.1, respiratory rate 20, pulse 92 and regular, and O2 saturation 98 percent. Her blood pressure remained elevated and she was given several doses of labetalol Exam on admission revealed drift and weakness of the left upper extremity and hand as well as some mild weakness in the left lower extremity. There is no facial droop, speech, or vision issues. Chest x-ray was unremarkable CT scan of the head revealed chronic ischemic changes with no acute changes. There were postop changes showing the STUDENT LIAISON OFFICER shunt placement. Carotid ultrasound was unremarkable CBC, Chem profile, CK were all normal. Hemoglobin A1c was 5.6. Fasting cholesterol was 159. her blood pressure was better Apparently it took some time to lower her blood pressure and the family at [facility] was not sure about tPA. Eventually, she received tPA. Overnight, nursing reports no new events and her blood pressure has been controlled better. She has no complaint of dizziness, vision problems, pain, but does have a mild bifrontal headache. She is weak in the left hand but does not believe her leg is weak. She has no numbness or lack of feeling. The right side is asymptomatic. Past Medical/Surgical History Medical Problems: (1) Bronchitis Status: Acute (2) CVA (cerebral vascular accident) Status: Acute (3) DVT (deep venous thrombosis) Status: Acute (4) History of DVT (deep vein thrombosis) Status: Acute (5) Hypertension Status: Acute (6) Hypertensive urgency Status: Acute (7) Lumbar Disc Displacement Status: Chronic (8) Normal pressure hydrocephalus Status: Chronic (9) Osteoporosis Nos Status: Chronic (10) Pure Hypercholesterolem Status: Chronic (11) Received intravenous tissue plasminogen activator (tPA) in emergency department Status: Acute (12) Spondylolisthesis Status: Chronic Surgical Problems: (1) S/P STUDENT LIAISON OFFICER shunt Status: Chronic History of lower extremity DVTs in 2012 put on Eliquis. She was taken off all anticoagulation by August 17, 2017. History of breast cancer by biopsy in 1971. She underwent a left mastectomy and has had no recurrence. Chronic history of lumbar and cervical spine disease with osteoporosis, spondylolisthesis, and other degenerative changes. she is currently on no pain medicine History of elevated cholesterol, on no lipid lowering agent on admission. History of C difficile colitis in 2012. Cholecystectomy in 1968 Vaginal hysterectomy in 1991 following a mesh procedure that failed. Deviated nasal septal repair Right inguinal hernia repair Right carpal tunnel syndrome repair 1992 Left carpal tunnel syndrome repair 2013 History of L4-5 disc removal with fusion 1996 T2 and T3 repair with diskectomy and fusion in 2011 Left mastectomy 1972 Bilateral cataract surgery 2013 EMG 2014 showing a mild left C7 radiculopathy Post STUDENT LIAISON OFFICER shunt placement for normal pressure hydrocephalus November 2015 Family History Mother age 90 and had heart disease. She also had a remote history of TB Father age 78 of a stroke Social History Patient never used tobacco products or smoke. She does not consume alcohol. 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 Smoking Status: Never smoker Smokeless Tobacco Use: No Alcohol Use: none Drug Use: none Marital Status: Housing Status: assisted living Occupation Status: retired Allergies Coded Allergies: Penicillins (Verified Allergy, Unknown, HAD KEFZOL W/O PROBLEM, 11/19/16) 12/01 HAD KEFZOL IN RR W/O PROBLEM Macrolides (Verified Adverse Reaction, Mild, MYCINS- GI SYMPTOMS, 11/19/16) Current Inpatient Medications Current Inpatient Medications Medications (Trade) Dose Ordered Sig/Reji Route Start Time Stop Time Status Last Admin Dose Admin Miscellaneous Information (Pharmacist Discharge Med Rec Consult) 1 ea UD PRN N/A 09/29/17 19:30 10/29/17 19:29 Miscellaneous Information (Icu Protocol For Hyperglycemia) 1 ea PRN PRN N/A 09/29/17 19:30 10/01/17 19:29 Losartan Potassium (coZAAR TAB) 50 mg QAM PO 09/30/17 09:00 10/30/17 08:59 09/30/17 09:58 50 MG Atorvastatin Calcium (Lipitor Tab) 40 mg QAM PO 09/30/17 10:00 10/30/17 09:59 09/30/17 09:57 40 MG Acetaminophen (Tylenol Tab) 650 mg Q6H PRN PO 09/30/17 09:15 10/30/17 09:14 Review of Systems Constitutional: + weakness, No fever, No fatigue Eyes: No worsening of vision, No diplopia ENT: No tinnitus, No trouble swallowing Respiratory: No cough, No shortness of breath Cardiovascular: No chest pain, No palpitations Abdomen: + pain, No nausea Musculoskeletal: + joint pain, No muscle pain Genitourinary - Female: + urinary incontinence, No dysuria Neurologic: + weakness, + balance problems, No memory loss, No numbness/ tingling, No vertigo Psychiatric: No depression symptoms, No anxiety Endocrine: No fatigue Hematologic / Lymphatic: No abnormal bleeding/bruising Integumentary: No rash Allergic / Immunologic: No hives Physical Exam Vital Signs (Past 24 Hrs): Date Time Temp Pulse Resp B/P (MAP) Pulse Ox O2 Delivery O2 Flow Rate FiO2 09/30/17 09:10 80 19 141/78 (99) 97 Room Air 09/30/17 08:10 85 20 128/73 (91) 96 Room Air 09/30/17 08:00 Room Air 09/30/17 07:10 36.6 73 18 132/71 (91) 97 Room Air 09/30/17 06:10 71 18 128/71 (90) 96 Room Air 09/30/17 05:10 74 18 112/64 (80) 94 Room Air 09/30/17 04:10 36.6 74 16 124/70 (88) 96 Room Air 09/30/17 03:10 73 16 130/73 (92) 95 Room Air 09/30/17 02:40 78 16 136/81 (99) 95 Room Air 09/30/17 02:10 83 18 125/65 (85) 95 Room Air 09/30/17 01:40 79 20 136/69 (91) 97 Room Air 09/30/17 01:10 91 22 154/81 (105) 97 Room Air 09/30/17 00:40 79 20 125/70 (88) 98 Room Air 09/30/17 00:10 79 16 128/66 (86) 95 Room Air 09/29/17 23:59 Room Air 09/29/17 23:40 36.6 77 18 115/61 (79) 95 Room Air 09/29/17 23:10 79 16 119/63 (81) 96 Room Air 09/29/17 22:40 36.8 87 18 133/70 (91) 98 Room Air 09/29/17 22:10 36.7 87 18 130/73 (92) 99 Room Air 09/29/17 22:00 88 98 09/29/17 21:40 36.7 88 20 130/72 (91) 100 Room Air 09/29/17 21:10 36.8 90 16 143/73 (96) 100 Room Air 09/29/17 20:59 36.5 91 20 136/79 100 Room Air 09/29/17 20:55 36.7 91 20 136/79 (98) 100 Room Air 09/29/17 20:31 90 19 130/91 94 09/29/17 20:26 89 16 97 09/29/17 20:21 161/98 09/29/17 20:16 89 15 98 09/29/17 20:15 37.0 85 20 130/91 98 Room Air 09/29/17 20:11 156/103 09/29/17 20:06 88 23 99 09/29/17 20:01 152/89 09/29/17 19:57 88 17 99 09/29/17 19:51 147/87 09/29/17 19:47 92 26 99 09/29/17 19:41 167/101 09/29/17 19:37 88 20 100 09/29/17 19:32 87 13 100 09/29/17 19:31 152/90 09/29/17 19:30 164/98 09/29/17 19:22 88 16 09/29/17 19:16 184/105 09/29/17 19:12 88 16 09/29/17 19:07 171/115 09/29/17 19:01 174/100 09/29/17 18:54 98 26 97 09/29/17 18:51 179/107 09/29/17 18:46 171/111 09/29/17 18:31 173/82 09/29/17 18:27 156/96 09/29/17 18:27 88 20 156/96 99 Room Air 09/29/17 18:24 89 17 100 09/29/17 18:23 98 Room Air 09/29/17 18:23 88 09/29/17 18:14 37.1 92 20 204/112 98 Room Air 09/29/17 18:12 204/112 Patient is right-handed. The patient is awake and alert. Speech is normal without aphasia or dysarthria. Mentation and thought processes are intact with full orientation and normal fund of knowledge. Attention and concentration is normal. Mood and affect are normal and appropriate. Appearance and grooming are normal. Long and short- term memory are intact. The discs are sharp with positive venous pulsations. There are no exudates, hemorrhages, or blood vessel changes seen. Pupils are 4mm bilaterally and reactive to light. Extraocular eye muscles are intact without nystagmus. Visual acuity and visual warner seem normal grossly to confrontation. There are no deficits to sensation of the face bilaterally. Corneal reflexes are positive bilaterally. Facial strength and symmetry is normal bilaterally. Hearing seems intact grossly to voice and finger rub. Palate moves well without asymmetry. There is normal sternocleidomastoid and trapezius strength bilaterally. Tongue is midline with good strength bilaterally. Neck is with full range of motion without discomfort. There are no cervical bruits. There are no cranial or ocular bruits. Heart is without murmur. Cervical, thoracic, and lumbar spine are nontender to palpation. Gait is not tested. When sitting up in bed in her feet dangling and over the side she feels vertiginous and leans to the left. She is not balanced. With outstretched arms there is a significant drift on the left.. There are no resting, postural, or action tremors. There is no ataxia with [id number] testing. There is decreased facility and clumsiness in the left hand but not the right. There are no abnormal involuntary movements noted. Motor strength is 5/5 diffusely in the right arm and leg both proximally and distally. The left upper extremity is 4/5 proximally and 3/5 distally. The left lower extremity is 4+/5 diffusely both proximally and distally. The limbs have good tone without rigidity or spasticity, and there is no atrophy noted. Muscle bulk is normal, there is no tenderness, no myotonia noted to percussion, and no fasciculations seen. Sensory examination is intact to pin and touch throughout all four limbs. Reflexes are 2/4 in the biceps, triceps, brachioradialis, quadriceps, and Achilles tendons bilaterally. Toes are downgoing with plantar stimulation on the right and upgoing with plantar stimulation on the left. Peripheral pulses are present and of normal quality distally in all four limbs. There is no peripheral edema noted. Laboratory Results Past 24 Hours: 09/30/17 04:29 Red Blood Count 4.25, Mean Corpuscular Volume 90.4, Mean Corpuscular Hemoglobin 29.6, Mean Corpuscular Hemoglobin Concent 32.8, Mean Platelet Volume 10.5, Neutrophils (%) (Auto) 51.5, Lymphocytes (%) (Auto) 33.8, Monocytes (%) (Auto) 11.8, Eosinophils (%) (Auto) 2.2, Basophils (%) (Auto) 0.5, Neutrophils # (Auto ) 3.33, Lymphocytes # (Auto) 2.18, Monocytes # (Auto) 0.76, Eosinophils # (Auto ) 0.14, Basophils # (Auto) 0.03 09/30/17 04:29 09/30/17 05:40 Test 09/29/17 18:20 09/29/17 20:10 09/30/17 04:29 09/30/17 05:40 Activated Partial Thromboplast Time 26.2 SECONDS (21.0-31.0) Partial Thromboplastin Ratio 1.0 Estimated Average Glucose 114 mg/dl Hemoglobin A1c 5.6 % (4.5-5.6) Urine Color YELLOW Urine Appearance CLEAR (CLEAR) Urine pH 6.5 (4.5-7.5) Urine Specific [place] 1.014 (1.000-1.030) Urine Protein NEG (NEG) Urine Glucose (UA) NEG (NEG) Urine Ketones NEG (NEG) Urine Occult Blood NEG (NEG) Urine Nitrite NEG (NEG) Urine Bilirubin NEG (NEG) Urine Urobilinogen NEG (NEG) Urine Leukocyte Esterase NEG (NEG) White Blood Count 6.45 K/uL (4.8-10.8) Red Blood Count 4.25 M/uL (4.2-5.4) Hemoglobin 12.6 g/dL (12.0-16.0) Hematocrit 38.4 % (37-47) Mean Corpuscular Volume 90.4 fL (80-100) Mean Corpuscular Hemoglobin 29.6 pg (25-34) Mean Corpuscular Hemoglobin Concent 32.8 g/dl (32-36) Platelet Count 208 K/uL (130-400) Mean Platelet Volume 10.5 fL (7.4-10.4) Neutrophils (%) (Auto) 51.5 % Lymphocytes (%) (Auto) 33.8 % Monocytes (%) (Auto) 11.8 % Eosinophils (%) (Auto) 2.2 % Basophils (%) (Auto) 0.5 % Neutrophils # (Auto) 3.33 K/uL (1.4-6.5) Lymphocytes # (Auto) 2.18 K/uL (1.2-3.4) Monocytes # (Auto) 0.76 K/uL (0.11-0.59) Eosinophils # (Auto) 0.14 K/uL (0-0.5) Basophils # (Auto) 0.03 K/uL (0-0.2) RDW Standard Deviation 43.0 fL (36.4-46.3) RDW Coefficient of Variation 13.1 % (11.5-14.5) Immature Granulocyte % (Auto) 0.2 % Immature Granulocyte # (Auto) 0.01 K/uL (0.00-0.02) Anion Gap 6.0 mmol/L (3-11) Est Creatinine Clear Calc Drug Dose 45.9 ml/min Estimated GFR () 72.4 Estimated GFR (Non- 62.5 BUN/Creatinine Ratio 18.7 (10-20) Calcium Level 8.1 mg/dl (8.5-10.1) Triglycerides Level 85 mg/dl (0-150) Cholesterol Level 159 mg/dl (0-200) HDL Cholesterol 51 mg/dl LDL Cholesterol, Calculated 91 mg/dl VLDL Cholesterol, Calculated 17 mg/dl Cholesterol/HDL Ratio 3.1 Magnesium Level 2.1 mg/dl (1.8-2.4) Test 09/30/17 05:42 09/30/17 09:24 09/30/17 09:31 Bedside Glucose 103 mg/dl (70-90) Creatine Kinase MB Ratio (0-3.0) Prothrombin Time 10.5 SECONDS (9.0-12.0) Prothromb Time International Ratio 1.0 (0.9-1.1) Impression 1. 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 She had a markedly elevated blood pressure on admission and does not have a significant history of hypertension On examination she has a left edd paresis, arm greater than leg, without sensory deficit, visual field deficit, or speech problems. She has chronic cerebral ischemia noted on MRI in 2016. Currently she is stable. 2. STUDENT LIAISON OFFICER shunt placed November of 2015 for normal pressure hydrocephalus that was apparently confirmed a month previous by radionucleotide cisternogram. Unfortunately, this shunt has not done anything to help her symptomatology. She never really had dementia and I am not sure that her walking problem or incontinence had anything to do with a mild normal pressure hydrocephalus condition anyway. 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 3. 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 4. Hypertension, improved since admission Plan 1. Obtain MRI of the brain and MR angiography of the head as ordered. 2. No antiplatelet medication until 24 hours after tPA. After this, consider 81 milligram aspirin daily. There is no indication for anticoagulation at this time, however I need to see the echocardiogram results. 3. Echocardiogram is pending 4. Physical, occupational, and speech therapy consult Increase activity as able 5. Follow day 2 post tPA order set when appropriate. I have spent a total of 105 minutes with this case including extensive past records review, review of old MRI films, direct evaluation the patient at bedside, and discussion of the case with Drs. Matute, Jt, as well as the ICU staff and the patient herself including differential diagnosis and treatment options.
--- NOTE | 2017-09-30 10:44 | Family Medicine Progress Note ---
Progress Note Date of Service Sep 30, 2017. Subjective Pt sitting comfortably in bed, going through NIH stroke scale with nursing. Grossly is struggling with strength on left upper arm, and hand, and also lower extremity. Is conversing without difficulty, sitting up in bed of own accord. ROS See HPI for pertinent positives and negatives. Otherwise denies new headache, vision change, chest pain, dyspnea, abdominal pain, loose or bloody stools, dysuria, or numbness tingling in extremities. Medications Current Inpatient Medications Medications (Trade) Dose Ordered Sig/Reji Route Start Time Stop Time Status Last Admin Dose Admin Miscellaneous Information (Pharmacist Discharge Med Rec Consult) 1 ea UD PRN N/A 09/29/17 19:30 10/29/17 19:29 Miscellaneous Information (Icu Protocol For Hyperglycemia) 1 ea PRN PRN N/A 09/29/17 19:30 10/01/17 19:29 Losartan Potassium (coZAAR TAB) 50 mg QAM PO 09/30/17 09:00 10/30/17 08:59 09/30/17 09:58 50 MG Atorvastatin Calcium (Lipitor Tab) 40 mg QAM PO 09/30/17 10:00 10/30/17 09:59 09/30/17 09:57 40 MG Acetaminophen (Tylenol Tab) 650 mg Q6H PRN PO 09/30/17 09:15 10/30/17 09:14 09/30/17 11:50 650 MG Objective Vital Signs Date Time Temp Pulse Resp B/P (MAP) Pulse Ox O2 Delivery O2 Flow Rate FiO2 09/30/17 15:10 72 17 132/78 (96) 97 Room Air 09/30/17 14:10 70 16 134/76 (95) 97 Room Air 09/30/17 13:10 75 18 112/59 (76) 96 Room Air 09/30/17 12:10 36.6 82 23 120/65 (83) 97 Room Air 09/30/17 11:10 75 22 140/78 (98) 98 Room Air 09/30/17 10:10 79 21 120/67 (84) 98 Room Air 09/30/17 09:10 80 19 141/78 (99) 97 Room Air 09/30/17 08:10 85 20 128/73 (91) 96 Room Air 09/30/17 08:00 Room Air 09/30/17 08:00 Room Air 09/30/17 07:10 36.6 73 18 132/71 (91) 97 Room Air 09/30/17 06:10 71 18 128/71 (90) 96 Room Air 09/30/17 05:10 74 18 112/64 (80) 94 Room Air 09/30/17 04:10 36.6 74 16 124/70 (88) 96 Room Air 09/30/17 03:10 73 16 130/73 (92) 95 Room Air 09/30/17 02:40 78 16 136/81 (99) 95 Room Air 09/30/17 02:10 83 18 125/65 (85) 95 Room Air 09/30/17 01:40 79 20 136/69 (91) 97 Room Air 09/30/17 01:10 91 22 154/81 (105) 97 Room Air 09/30/17 00:40 79 20 125/70 (88) 98 Room Air 09/30/17 00:10 79 16 128/66 (86) 95 Room Air 09/29/17 23:59 Room Air 09/29/17 23:40 36.6 77 18 115/61 (79) 95 Room Air 09/29/17 23:10 79 16 119/63 (81) 96 Room Air 09/29/17 22:40 36.8 87 18 133/70 (91) 98 Room Air 09/29/17 22:10 36.7 87 18 130/73 (92) 99 Room Air 09/29/17 22:00 88 98 09/29/17 21:40 36.7 88 20 130/72 (91) 100 Room Air 09/29/17 21:10 36.8 90 16 143/73 (96) 100 Room Air 09/29/17 20:59 36.5 91 20 136/79 100 Room Air 09/29/17 20:55 36.7 91 20 136/79 (98) 100 Room Air 09/29/17 20:31 90 19 130/91 94 09/29/17 20:26 89 16 97 18 20:21 161/98 09/29/17 20:16 89 15 98 09/29/17 20:15 37.0 85 20 130/91 98 Room Air 09/29/17 20:11 156/103 09/29/17 20:06 88 23 99 09/29/17 20:01 152/89 09/29/17 19:57 88 17 99 09/29/17 19:51 147/87 09/29/17 19:47 92 26 99 09/29/17 19:41 167/101 09/29/17 19:37 88 20 100 09/29/17 19:32 87 13 100 09/29/17 19:31 152/90 09/29/17 19:30 164/98 09/29/17 19:22 88 16 09/29/17 19:16 184/105 09/29/17 19:12 88 16 09/29/17 19:07 171/115 09/29/17 19:01 174/100 09/29/17 18:54 98 26 97 09/29/17 18:51 179/107 09/29/17 18:46 171/111 09/29/17 18:31 173/82 09/29/17 18:27 156/96 09/29/17 18:27 88 20 156/96 99 Room Air 09/29/17 18:24 89 17 100 09/29/17 18:23 98 Room Air 09/29/17 18:23 88 09/29/17 18:14 37.1 92 20 204/112 98 Room Air 09/29/17 18:12 204/112 Physical Exam Notes: GENERAL: Awake, alert, well-appearing, in no distress HENT: Normocephalic, atraumatic. EYES: Normal conjunctiva. Sclera non-icteric. EOMI. NECK: Supple. Full range of motion. no JVD RESPIRATORY: Clear to auscultation. CARDIAC: Regular rate, normal rhythm. Extremities warm and well perfused. Pulses equal. ABDOMEN: Soft, non-distended. No tenderness to palpation. No rebound or guarding. No masses. LOWER EXTREMITIES: Calves are equal size bilaterally and non-tender. No edema. No discoloration. NEURO: left hemiparesis. CN II-XII in tact. Gait not assessed. No aphasia. Heel mahmood toe in tact bilaterally. Thought process within normal limits. SKIN: No rash or jaundice noted. Assessment and Plan 87 F here for CVA s/p TPA Right periventricular infarct - Per report to neurologist, symptoms on left side began around 1600 09/29/17. TPA given at 19:00 09/29/[address] ruled out hemorrhage. - Echo shows normal systolic function, no wall motion abnormalities. Ejection Fraction = 60-65%. - CXR normal - Carotid US showed no significant stenosis - venous doppler shows no DVT's bilaterally - Head MRA shows no sign stenosis/occlusion/aneurysm in the [place]. - Brain MRI shows small acute right periventricular infarct. - CBC, CMP unremarkable, fasting lipids reveals total chol <200. - ASA 81mg to start daily and activity orders per tPA day 2 order set. 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 HTN - per neuro recs, goal MAP of 100. - continue home cozaar 50mg qam FEN/GI regular diet Resident Physician Supervision Note: I interviewed and examined the patient. Discussed with Dr. Waters and agree with findings and plan as documented in the note. Any exceptions or clarifications are listed here: None Documented By: Ted Salmon feeling ok - ongoing L arm weakness vitals noted nad breathing unlabored no pallor or icterus CVA - appearing intracranial atherosclerosis related to HTN, age, dyslipidemia -s/p tPA, continue BP meds, start asa, discussed risks/benefits of lipitor ( benefit being plaque stabilization and optimization of lipids, risk being theoretical increased risk of ICH if lipids too suppressed - we discussed that with stroke having been real event, and ICH being theoretical, benefits likely outweigh the risks for at least the near future) Continued [facility] stay due to: multiple IV medications needed Resident Tracking Resident Involvement: Resident Care Provided Care Provided: Adult Hospital Medicine
[2017-09-30] MEDS: ACETAMINOPHEN 325 MG TAB PO PRN ×2 (11:50→17:42)
--- NOTE | 2017-09-30 14:39 | DIAGNOSTIC IMAGING REPORT ---
BRAIN WITHOUT CONTRAST HISTORY: Mental status change Stroke TECHNIQUE: Multiplanar multisequence MRI of the brain was performed without the use of contrast. COMPARISON STUDY: None. FINDINGS: Small acute infarct posterior right paraventricular region. This is best seen transaxial image 15. Moderate chronic small vessel change. Pre-existing mild atrophy. Ventricular system is midline. IMPRESSION: 1. Small acute right periventricular infarct. 2. Chronic findings of atrophy and chronic small vessel change. 3. Right-sided shunt catheter in good position. The above report was generated using voice recognition software. It may contain grammatical, syntax or spelling errors. Electronically signed by: Markie Loredo M.D. 09/30/2017 2:37 PM Dictated Date/Time: 09/30/2017 2:35 PM
--- NOTE | 2017-09-30 14:40 | DIAGNOSTIC IMAGING REPORT ---
Brain MRA HISTORY: Stroke. Attention to [place] TECHNIQUE: 3-D [id number] MRA of the brain was performed without contrast. COMPARISON STUDY: None. FINDINGS: Visualized intracranial internal carotid arteries, distal vertebral arteries, and basilar artery are widely patent. There is no significant stenosis, occlusion, or aneurysm seen within the bilateral ACAs, MCAs, or white metal corrosion proofer. Mild motion artifact resulting in suboptimal evaluation the bilateral distal white metal corrosion proofer. Of note, the right P1 segment is hypoplastic. The right COIL ASSEMBLER is fed primarily through the posterior communicating artery. This is considered to be a normal variant. There is a right parietal approach ventriculostomy catheter which terminates at the midline of the lateral ventricles. IMPRESSION: No significant stenosis, occlusion, or aneurysm within the [place]. Electronically signed by: Junior Hathaway M.D. 09/30/2017 2:38 PM Dictated Date/Time: 09/30/2017 2:33 PM
--- NOTE | 2017-09-30 21:04 | DIAGNOSTIC IMAGING REPORT ---
HEAD WITHOUT CONTRAST (CT) CLINICAL HISTORY: 87 years-old Female with S/P t-PA for Stroke. Evaluate hemorrhage. Follow-up study in a patient with acute infarction of the periventricular white matter of the right frontal parietal region TECHNIQUE: Multiple axial CT images of the head were obtained without contrast. A dose lowering technique was utilized adhering to the principles of ALARA. CT DOSE: 537.48 mGy.cm COMPARISON: CT head 09/29/2017 and MRI brain 09/30/2017 FINDINGS: Small area of acute infarction involving the periventricular white matter adjacent to the posterior body right lateral ventricle is not definitively seen. There is no acute intracranial hemorrhage, midline shift, abnormal extra-axial collections or hydrocephalus. Stable positioning of right-sided ventriculostomy shunt catheter with distal tip terminating adjacent to the septum pellucidum. Age-related involutional changes with mild ex vacuo ventriculomegaly. Unchanged confluence low-attenuation about the white matter compatible with advanced chronic microvascular ischemic changes. Senescent calcifications of the lentiform nucleus. No territorial infarct. No calvarial fracture. Mastoid air cells are clear. Mild to moderate mucosal thickening of the ethmoid air cells. Soft tissues and orbits are unremarkable. IMPRESSION: 1. Previously noted small acute infarction reported on MRI brain of same day is not definitively seen on CT. There is no acute intracranial hemorrhage, midline shift or territorial infarct identified. 2. Chronic stable findings as above. The above report was generated using voice recognition software. It may contain grammatical, syntax or spelling errors. Electronically signed by: Marquez Davila M.D. 09/30/2017 9:02 PM Dictated Date/Time: 09/30/2017 8:58 PM
[2017-10-01] VITALS (13 sets, daily range): BP systolic 127–173; BP diastolic 68–92; PULSE 64–97; TEMP 36.3–36.8; O2SAT 94–97
[2017-10-01] MEDS: ACETAMINOPHEN 325 MG TAB PO PRN ×3 (00:45→19:11)
[2017-10-01 04:44] LABS: BASO % 0.7 %; BASO ABS # 0.04 K/uL (0-0.2); EOS % 5.4 %; HEMATOCRIT 40.5 % (37-47); HEMOGLOBIN 13.1 g/dL (12.0-16.0); IG# 0.01 K/uL (0.00-0.02); LYMPH % 37.5 %; LYMPH ABS # 2.08 K/uL (1.2-3.4); MEAN CELL VOLUME 90.6 fL (80-100); MEAN CORPUSCULAR HEMOGLOBIN 29.3 pg (25-34); MEAN CORPUSCULAR HGB CONC 32.3 g/dl (32-36); MEAN PLATELET VOLUME 9.8 fL (7.4-10.4); MONO % 12.1 %; MONO ABS # 0.67 K/uL (0.11-0.59); NEUT % 44.1 %; NEUT ABS # 2.44 K/uL (1.4-6.5); PLATELET COUNT 225 K/uL (130-400); RED CELL DISTRIBUTION WIDTH CV 12.9 % (11.5-14.5); RED CELL DISTRIBUTION WIDTH SD 42.7 fL (36.4-46.3); WHITE BLOOD COUNT 5.54 K/uL (4.8-10.8)
[2017-10-01 05:02] LABS: CALCIUM 8.2 mg/dl (8.5-10.1); CREATININE 0.78 mg/dl (0.60-1.20); POTASSIUM 3.9 mmol/L (3.5-5.1)
--- NOTE | 2017-10-01 07:41 | Critical Care Progress Note ---
Critical Care Progress Note Date of Service Oct 01, 2017. ICU Day ICU Day Number: [address] Sands Subjective Doing well this morning still c/o left sided weakness. Does have some back pain sitting in bed. Has chronic back pain at baseline. Objective GENERAL -NAD SKIN - Without rashes. HEAD - NC/AT. EYES - PERRL with EOMI bilaterally. Sclera anicteric. Palpebral conjunctiva pink and moist with no injection noted. NECK - Neck with FROM. 2-3 cm palpable, firm, nontender, immobile left submandibular lymph node LUNGS - CTAB, no wheezing, rales or rhonchi CARDIAC - RRR with S1/S2. No murmur, rubs, or gallops appreciated. ABDOMEN -. No tenderness, palpable masses, hepatosplenomegaly, or ascites noted. EXTREMITIES - No clubbing or peripheral cyanosis. NEUROLOGIC - Cranial nerves II through XII grossly intact. Sensory intact to light touch throughout. Symmetric strength in lower extremity. Right upper extremity 4/5, left upper extremity 3/5, against resistance. PSYCH - A&Ox3 and cooperates fully with examiner. Pt is very pleasant and interacts well with examiner. Assessment & Plan 87 yo female with PMH of HTN presents to ICU following stroke. Continue hemodynamic monitoring s/p TPA. Neuro - Right hemisphere ischemic stroke, confirmed by MRI--s/p TPA (19:20, 09/30/2017) - Left sided deficits, namely left upper ext. remain this morning - CT was negative, no indication of hemorrhage - H/o hydrocephalus and shunting - Patient has been off of Eliquis since August 17 - Currently on ASA 81mg, will need senior living anticoagulation considering DVT history - Neurology following, appreciate recommendations - PT/OT to evaluate patient today Cardio - H/o HTN, continue Cozaar 50 mg - Cholesterol checked, WNL - Patient started on 40 mg Lipitor - Will follow am ECHO, r/o mural thrombus, valvular issues, readdress further anticoagulation - Carotid doppler was unremarkable for stenosis Resp - No pulmonary dx, negative CXR, continue to monitor pulse ox GI - Recent bouts of diarrhea, has been improving - Continue AHA diet Renal - No significant electrolyte derangement, dc fluids - Continue to monitor and replete - No concerns at this time Endo - A1C 5.6 - No h/o DM/thyroid disease Heme - Stable, closely monitor H/H s/p TPA - 2-3 cm palpable, firm, nontender, immobile left submandibular lymph node - Ordered Neck USG, signed out to primary team, follow up in the outpatient to r /o malignancy ID - No concern for infection, continue to follow fever curve Lines - PIV x 2 DVT ppx - Doppler USG: no DVT in LE bilaterally - H/o of DVT in the past, reports two prior episodes. Will review records and determine need for outpatient anticoagulation. - Patient started on Lovenox this am, sign out senior living anticoagulation to primary team Code - DNR Resident Physician Supervision Note: Dr. Waters was resident physician during care of patient. I separately evaluated patient and did history and exam. I discussed the case with the resident and generally agree with the findings and plan. Clinically stable for downgrade from ICU. Starting DVT PROPHYLAXIS, deferring senior living anticoagulation decision to primary team or PCP Documented By: Simon Sands, DO Data Medications: Current Inpatient Medications Medications (Trade) Dose Ordered Sig/Reji Route Start Time Stop Time Status Last Admin Dose Admin Miscellaneous Information (Pharmacist Discharge Med Rec Consult) 1 ea UD PRN N/A 09/29/17 19:30 10/29/17 19:29 Miscellaneous Information (Icu Protocol For Hyperglycemia) 1 ea PRN PRN N/A 09/29/17 19:30 10/01/17 19:29 Losartan Potassium (coZAAR TAB) 50 mg QAM PO 09/30/17 09:00 10/30/17 08:59 09/30/17 09:58 50 MG Atorvastatin Calcium (Lipitor Tab) 40 mg QAM PO 09/30/17 10:00 10/30/17 09:59 09/30/17 09:57 40 MG Acetaminophen (Tylenol Tab) 650 mg Q6H PRN PO 09/30/17 09:15 10/30/17 09:14 10/01/17 06:47 650 MG Aspirin (Ecotrin Tab) 81 mg QAM PO 10/01/17 09:00 10/31/17 08:59 Vital Signs: Date Time Temp Pulse Resp B/P (MAP) Pulse Ox O2 Delivery O2 Flow Rate FiO2 10/01/17 04:01 36.8 64 12 152/76 (101) 96 Room Air 10/01/17 03:01 70 16 157/84 (108) 95 Room Air 10/01/17 02:01 71 15 142/78 (99) 95 Room Air 10/01/17 01:02 74 16 165/89 (114) 95 Room Air 10/01/17 00:01 Room Air 10/01/17 00:01 36.7 77 14 131/68 (89) 94 Room Air 09/30/17 23:01 74 17 153/73 (99) 95 Room Air 09/30/17 22:01 69 18 122/62 (82) 95 Room Air 09/30/17 21:07 77 19 157/85 (109) 95 Room Air 09/30/17 21:01 82 15 163/116 (132) 96 Room Air 09/30/17 20:09 73 20 142/85 (104) 96 Room Air 09/30/17 20:09 36.8 09/30/17 20:00 Room Air 09/30/17 19:10 79 21 132/81 (98) 97 Room Air 09/30/17 18:10 82 18 125/72 (89) 98 Room Air 09/30/17 17:10 86 20 159/81 (107) 96 Room Air 09/30/17 16:10 Room Air 09/30/17 16:10 36.8 74 17 158/94 (115) 98 Room Air 09/30/17 15:10 72 17 132/78 (96) 97 Room Air 09/30/17 14:10 70 16 134/76 (95) 97 Room Air 09/30/17 13:10 75 18 112/59 (76) 96 Room Air 09/30/17 12:10 36.6 82 23 120/65 (83) 97 Room Air 09/30/17 11:10 75 22 140/78 (98) 98 Room Air 09/30/17 10:10 79 21 120/67 (84) 98 Room Air 09/30/17 09:10 80 19 141/78 (99) 97 Room Air 09/30/17 08:10 85 20 128/73 (91) 96 Room Air 09/30/17 08:00 Room Air 09/30/17 08:00 Room Air Laboratory Results: Last 24 Hours Test 09/30/17 09:31 09/30/17 21:29 10/01/17 04:29 Prothrombin Time 10.5 SECONDS 10.6 SECONDS Prothromb Time International Ratio 1.0 1.0 Total Creatine Kinase 205 U/L Creatine Kinase MB 1.8 ng/ml Creatine Kinase MB Ratio 0.9 Troponin I 0.030 ng/ml Bedside Glucose 106 mg/dl White Blood Count 5.54 K/uL Red Blood Count 4.47 M/uL Hemoglobin 13.1 g/dL Hematocrit 40.5 % Mean Corpuscular Volume 90.6 fL Mean Corpuscular Hemoglobin 29.3 pg Mean Corpuscular Hemoglobin Concent 32.3 g/dl Platelet Count 225 K/uL Mean Platelet Volume 9.8 fL Neutrophils (%) (Auto) 44.1 % Lymphocytes (%) (Auto) 37.5 % Monocytes (%) (Auto) 12.1 % Eosinophils (%) (Auto) 5.4 % Basophils (%) (Auto) 0.7 % Neutrophils # (Auto) 2.44 K/uL Lymphocytes # (Auto) 2.08 K/uL Monocytes # (Auto) 0.67 K/uL Eosinophils # (Auto) 0.30 K/uL Basophils # (Auto) 0.04 K/uL RDW Standard Deviation 42.7 fL RDW Coefficient of Variation 12.9 % Immature Granulocyte % (Auto) 0.2 % Immature Granulocyte # (Auto) 0.01 K/uL Sodium Level 142 mmol/L Potassium Level 3.9 mmol/L Chloride Level 112 mmol/L Carbon Dioxide Level 24 mmol/L Anion Gap 6.0 mmol/L Blood Urea Nitrogen 12 mg/dl Creatinine 0.78 mg/dl Est Creatinine Clear Calc Drug Dose 49.4 ml/min Estimated GFR () 79.2 Estimated GFR (Non- 68.4 BUN/Creatinine Ratio 15.4 Random Glucose 88 mg/dl Calcium Level 8.2 mg/dl
[2017-10-01] MEDS: ATORVASTATIN 40 MG TAB PO SCH (07:43)
[2017-10-01] MEDS: ASPIRIN 81 MG ECTAB PO SCH (07:43)
[2017-10-01] MEDS: LOSARTAN POTASSIUM 50 MG TAB PO SCH (07:44)
[2017-10-01] MEDS: ENOXAPARIN 40 MG/0.4 ML SYR SQ SCH (09:10)
--- NOTE | 2017-10-01 09:40 | Neurology Progress Notes ---
Neurology Progress Note Date of Service Oct 01, 2017. Subjective Nursing reports some increased blood pressure overnight which was treated and now blood pressure is improved. The patient reports some mild headache during this time of increased blood pressure and Tylenol helped. Otherwise, she has some pain in her left shoulder from working with occupational therapy but has no other pain in the limbs or spine. She has no dizziness or vision problems. She has no speech issues or numbness. Nursing wonders if she has ataxia of the arm and leg and gave her an NIH stroke scale of 4. CBC was unremarkable. Chem profile showed a calcium of 8.2 but was otherwise largely unremarkable. MRI of the brain showed a small right periventricular CVA and a background of significant generalized atrophy and moderate old small vessel ischemia. The right-sided catheter is well placed. MR angiography of the head was unremarkable. Carotid ultrasound was unremarkable. Echocardiogram showed some very mild left ventricular hypertrophy with no other significant abnormalities or shunt I spent considerable time with Dr. Joel in Radiology comparing the 2016 MRI with the MRI of the brain yesterday. Objective Date Time Temp Pulse Resp B/P (MAP) Pulse Ox O2 Delivery O2 Flow Rate FiO2 10/01/17 06:45 36.5 71 18 170/92 (118) 95 Room Air 10/01/17 04:01 36.8 64 12 152/76 (101) 96 Room Air 10/01/17 03:01 70 16 157/84 (108) 95 Room Air 10/01/17 02:01 71 15 142/78 (99) 95 Room Air 10/01/17 01:02 74 16 165/89 (114) 95 Room Air 10/01/17 00:01 Room Air 10/01/17 00:01 36.7 77 14 131/68 (89) 94 Room Air 09/30/17 23:01 74 17 153/73 (99) 95 Room Air 09/30/17 22:01 69 18 122/62 (82) 95 Room Air 09/30/17 21:07 77 19 157/85 (109) 95 Room Air 09/30/17 21:01 82 15 163/116 (132) 96 Room Air 09/30/17 20:09 73 20 142/85 (104) 96 Room Air 09/30/17 20:09 36.8 09/30/17 20:00 Room Air 09/30/17 19:10 79 21 132/81 (98) 97 Room Air 09/30/17 18:10 82 18 125/72 (89) 98 Room Air 09/30/17 17:10 86 20 159/81 (107) 96 Room Air 09/30/17 16:10 Room Air 09/30/17 16:10 36.8 74 17 158/94 (115) 98 Room Air 09/30/17 15:10 72 17 132/78 (96) 97 Room Air 09/30/17 14:10 70 16 134/76 (95) 97 Room Air 09/30/17 13:10 75 18 112/59 (76) 96 Room Air 09/30/17 12:10 36.6 82 23 120/65 (83) 97 Room Air 09/30/17 11:10 75 22 140/78 (98) 98 Room Air 09/30/17 10:10 79 21 120/67 (84) 98 Room Air Last 24 Hours Test 09/30/17 09:31 09/30/17 21:29 10/01/17 04:29 Prothrombin Time 10.5 SECONDS 10.6 SECONDS Prothromb Time International Ratio 1.0 1.0 Total Creatine Kinase 205 U/L Creatine Kinase MB 1.8 ng/ml Creatine Kinase MB Ratio 0.9 Troponin I 0.030 ng/ml Bedside Glucose 106 mg/dl White Blood Count 5.54 K/uL Red Blood Count 4.47 M/uL Hemoglobin 13.1 g/dL Hematocrit 40.5 % Mean Corpuscular Volume 90.6 fL Mean Corpuscular Hemoglobin 29.3 pg Mean Corpuscular Hemoglobin Concent 32.3 g/dl Platelet Count 225 K/uL Mean Platelet Volume 9.8 fL Neutrophils (%) (Auto) 44.1 % Lymphocytes (%) (Auto) 37.5 % Monocytes (%) (Auto) 12.1 % Eosinophils (%) (Auto) 5.4 % Basophils (%) (Auto) 0.7 % Neutrophils # (Auto) 2.44 K/uL Lymphocytes # (Auto) 2.08 K/uL Monocytes # (Auto) 0.67 K/uL Eosinophils # (Auto) 0.30 K/uL Basophils # (Auto) 0.04 K/uL RDW Standard Deviation 42.7 fL RDW Coefficient of Variation 12.9 % Immature Granulocyte % (Auto) 0.2 % Immature Granulocyte # (Auto) 0.01 K/uL Sodium Level 142 mmol/L Potassium Level 3.9 mmol/L Chloride Level 112 mmol/L Carbon Dioxide Level 24 mmol/L Anion Gap 6.0 mmol/L Blood Urea Nitrogen 12 mg/dl Creatinine 0.78 mg/dl Est Creatinine Clear Calc Drug Dose 49.4 ml/min Estimated GFR () 79.2 Estimated GFR (Non- 68.4 BUN/Creatinine Ratio 15.4 Random Glucose 88 mg/dl Calcium Level 8.2 mg/dl Imaging: BRAIN WITHOUT CONTRAST HISTORY: Mental status change Stroke TECHNIQUE: Multiplanar multisequence MRI of the brain was performed without the use of contrast. COMPARISON STUDY: None. FINDINGS: Small acute infarct posterior right paraventricular region. This is best seen transaxial image 15. Moderate chronic small vessel change. Pre-existing mild atrophy. Ventricular system is midline. IMPRESSION: 1. Small acute right periventricular infarct. 2. Chronic findings of atrophy and chronic small vessel change. 3. Right-sided shunt catheter in good position. The above report was generated using voice recognition software. It may contain grammatical, syntax or spelling errors. Electronically signed by: Markie Loredo M.D. 09/30/2017 2:37 PM Exam: She is awake and alert. Her speech is normal without aphasia or dysarthria. Mood and affect are normal appropriate. Thought processes seem intact with good long and short-term memory to conversation. She is attentive and concentrates well. Extraocular eye muscles are intact without nystagmus. Tongue is midline. There is no facial droop. There are no deficits to sensation of the face. Neck is supple. She is sitting up in chair well with good stance. Gait was not specifically tested today but she is able to sit up normally today as compared to yesterday. She has weakness and clumsiness of the left upper extremity being 3/5, particularly distally. Her leg has 4 to 4+/5 strength distally on the left. Right side is 5/5 diffusely. She has no ataxia with [id number] testing and note resting, postural, or action tremor. Current Inpatient Medications Medications (Trade) Dose Ordered Sig/Reji Route Start Time Stop Time Status Last Admin Dose Admin Miscellaneous Information (Pharmacist Discharge Med Rec Consult) 1 ea UD PRN N/A 09/29/17 19:30 10/29/17 19:29 Miscellaneous Information (Icu Protocol For Hyperglycemia) 1 ea PRN PRN N/A 09/29/17 19:30 10/01/17 19:29 Losartan Potassium (coZAAR TAB) 50 mg QAM PO 09/30/17 09:00 10/30/17 08:59 10/01/17 07:44 50 MG Atorvastatin Calcium (Lipitor Tab) 40 mg QAM PO 09/30/17 10:00 10/30/17 09:59 10/01/17 07:43 40 MG Acetaminophen (Tylenol Tab) 650 mg Q6H PRN PO 09/30/17 09:15 10/30/17 09:14 10/01/17 06:47 650 MG Aspirin (Ecotrin Tab) 81 mg QAM PO 10/01/17 09:00 10/31/17 08:59 10/01/17 07:43 81 MG Enoxaparin Sodium (Lovenox Inj) 40 mg DAILY SQ 10/01/17 09:00 10/31/17 08:59 10/01/17 09:10 40 MG Impression 1.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 She had a markedly elevated blood pressure on admission and it is much improved since. On examination she has a left edd paresis, arm greater than leg, without sensory deficit, visual field deficit, or speech problems. This is stable over the last 24 hours. MRI revealed a small deep right periventricular acute stroke with moderate generalized small vessel ischemia diffusely and significant generalized atrophy. Currently she is neurological stable. 2. 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 Unfortunately, this shunt has not done anything to help her symptomatology and I am fairly certain she did not need the shunt (either by clinical or radiographic criteria). Even with a positive radionucleotide cisternogram, her advanced age, and lack of clinical and radiographic criteria otherwise, would make her at high risk for a shunt for subsequent bleeding. Therefore, she is at great risk for tearing bridging veins given the shunt and her advanced atrophy. This would result in subdural hematoma. Unfortunately, I am not sure if we can do anything to correct this although she might benefit from a neuro surgical consult as an outpatient. She never really had dementia and I am not sure that her walking problem or incontinence had anything to do with a mild normal pressure hydrocephalus condition anyway. 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 3. 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 4. Hypertension, improved since admission Plan 1. Continue 81 milligram aspirin daily. 2. Despite her history of DVT in the past (2012) I do not believe she needs anticoagulation from this or any other reason currently. In addition, anticoagulation would put her at greater risk for intracranial bleed if she did tear a bridging vein 3. Physical, occupational, and speech therapy consult Increase activity as able 4. Consider [facility] stay 5. I have no further neurologic testing or treatment recommendations to make at this time. I would like to follow this patient up as an outpatient in 2-3 weeks. I have spent a total of 45 minutes with this case including records review, review of MRI films with Dr. Joel in Radiology both 2016 and 2018 films today, direct evaluation the patient at bedside, and discussion of the case with Dr. Waters, ICU staff, and the patient herself including differential diagnosis and treatment options.
--- NOTE | 2017-10-01 12:19 | Family Medicine Progress Note ---
Progress Note Date of Service Oct 01, 2017. Subjective Pt reports feeling well this morning. HAY[place] overnight Tolerating PO Working with PT Denies worsening weakness, endorses better strength in her hand, but certainly not to baseline. Medications Current Inpatient Medications Medications (Trade) Dose Ordered Sig/Reji Route Start Time Stop Time Status Last Admin Dose Admin Miscellaneous Information (Pharmacist Discharge Med Rec Consult) 1 ea UD PRN N/A 09/29/17 19:30 10/29/17 19:29 Miscellaneous Information (Icu Protocol For Hyperglycemia) 1 ea PRN PRN N/A 09/29/17 19:30 10/01/17 19:29 Losartan Potassium (coZAAR TAB) 50 mg QAM PO 09/30/17 09:00 10/30/17 08:59 10/01/17 07:44 50 MG Atorvastatin Calcium (Lipitor Tab) 40 mg QAM PO 09/30/17 10:00 10/30/17 09:59 10/01/17 07:43 40 MG Acetaminophen (Tylenol Tab) 650 mg Q6H PRN PO 09/30/17 09:15 10/30/17 09:14 10/01/17 06:47 650 MG Aspirin (Ecotrin Tab) 81 mg QAM PO 10/01/17 09:00 10/31/17 08:59 10/01/17 07:43 81 MG Enoxaparin Sodium (Lovenox Inj) 40 mg DAILY SQ 10/01/17 09:00 10/31/17 08:59 10/01/17 09:10 40 MG Objective Vital Signs Date Time Temp Pulse Resp B/P (MAP) Pulse Ox O2 Delivery O2 Flow Rate FiO2 10/01/17 06:45 36.5 71 18 170/92 (118) 95 Room Air 10/01/17 04:01 36.8 64 12 152/76 (101) 96 Room Air 10/01/17 03:01 70 16 157/84 (108) 95 Room Air 10/01/17 02:01 71 15 142/78 (99) 95 Room Air 10/01/17 01:02 74 16 165/89 (114) 95 Room Air 10/01/17 00:01 Room Air 10/01/17 00:01 36.7 77 14 131/68 (89) 94 Room Air 09/30/17 23:01 74 17 153/73 (99) 95 Room Air 09/30/17 22:01 69 18 122/62 (82) 95 Room Air 09/30/17 21:07 77 19 157/85 (109) 95 Room Air 09/30/17 21:01 82 15 163/116 (132) 96 Room Air 09/30/17 20:09 73 20 142/85 (104) 96 Room Air 09/30/17 20:09 36.8 09/30/17 20:00 Room Air 09/30/17 19:10 79 21 132/81 (98) 97 Room Air 09/30/17 18:10 82 18 125/72 (89) 98 Room Air 09/30/17 17:10 86 20 159/81 (107) 96 Room Air 09/30/17 16:10 Room Air 09/30/17 16:10 36.8 74 17 158/94 (115) 98 Room Air 09/30/17 15:10 72 17 132/78 (96) 97 Room Air 09/30/17 14:10 70 16 134/76 (95) 97 Room Air 09/30/17 13:10 75 18 112/59 (76) 96 Room Air Physical Exam Notes: GENERAL: Awake, alert, well-appearing, in no distress HENT: Normocephalic, atraumatic. EYES: Normal conjunctiva. EOMI NECK: Supple. Full range of motion. RESPIRATORY: On room air, normal work of breathing CARDIAC: Extremities warm and well perfused. NEURO: CN II-XII grossly in tact. SKIN: no rash or jaundice noted. Laboratory Results 10/01/17 04:29 Red Blood Count 4.47, Mean Corpuscular Volume 90.6, Mean Corpuscular Hemoglobin 29.3, Mean Corpuscular Hemoglobin Concent 32.3, Mean Platelet Volume 9.8, Neutrophils (%) (Auto) 44.1, Lymphocytes (%) (Auto) 37.5, Monocytes (%) (Auto) 12.1, Eosinophils (%) (Auto) 5.4, Basophils (%) (Auto) 0.7, Neutrophils # (Auto ) 2.44, Lymphocytes # (Auto) 2.08, Monocytes # (Auto) 0.67, Eosinophils # (Auto ) 0.30, Basophils # (Auto) 0.04 10/01/17 04:29 Test 09/30/17 21:29 7/25/18 04:29 Bedside Glucose 106 mg/dl (70-90) White Blood Count 5.54 K/uL (4.8-10.8) Red Blood Count 4.47 M/uL (4.2-5.4) Hemoglobin 13.1 g/dL (12.0-16.0) Hematocrit 40.5 % (37-47) Mean Corpuscular Volume 90.6 fL (80-100) Mean Corpuscular Hemoglobin 29.3 pg (25-34) Mean Corpuscular Hemoglobin Concent 32.3 g/dl (32-36) Platelet Count 225 K/uL (130-400) Mean Platelet Volume 9.8 fL (7.4-10.4) Neutrophils (%) (Auto) 44.1 % Lymphocytes (%) (Auto) 37.5 % Monocytes (%) (Auto) 12.1 % Eosinophils (%) (Auto) 5.4 % Basophils (%) (Auto) 0.7 % Neutrophils # (Auto) 2.44 K/uL (1.4-6.5) Lymphocytes # (Auto) 2.08 K/uL (1.2-3.4) Monocytes # (Auto) 0.67 K/uL (0.11-0.59) Eosinophils # (Auto) 0.30 K/uL (0-0.5) Basophils # (Auto) 0.04 K/uL (0-0.2) RDW Standard Deviation 42.7 fL (36.4-46.3) RDW Coefficient of Variation 12.9 % (11.5-14.5) Immature Granulocyte % (Auto) 0.2 % Immature Granulocyte # (Auto) 0.01 K/uL (0.00-0.02) Prothrombin Time 10.6 SECONDS (9.0-12.0) Prothromb Time International Ratio 1.0 (0.9-1.1) Anion Gap 6.0 mmol/L (3-11) Est Creatinine Clear Calc Drug Dose 49.4 ml/min Estimated GFR () 79.2 Estimated GFR (Non- 68.4 BUN/Creatinine Ratio 15.4 (10-20) Calcium Level 8.2 mg/dl (8.5-10.1) Assessment and Plan 87 F here for CVA s/p TPA Right periventricular infarct - Per report to neurologist, symptoms on left side began around 1600 09/29/17. TPA given at 19:00 09/29/[address] ruled out hemorrhage. - Echo shows normal systolic function, no wall motion abnormalities. Ejection Fraction = 60-65%. - CXR normal - Carotid US showed no significant stenosis - venous doppler shows no DVT's bilaterally - Head MRA shows no sign stenosis/occlusion/aneurysm in the [place]. - Brain MRI shows small acute right periventricular infarct. - CBC, CMP unremarkable, fasting lipids reveals total chol <200. - ASA 81mg to start daily and activity orders per tPA day 2 order set. - repeat head CT this AM shows no acute changes, stable. - PT/OT - to rehab on discharge Normal pressure hydrocephalus, s/p SHIPPING PACKER shunt 2015 - no acute issues, shunt in tact on imaging - with a SHIPPING PACKER shunt, per neuro, higher risk for subdural hematoma. Discussed that eliquis could increase risk of bleeding there. 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 - as she has a higher risk of hematoma, as above, do not recommend further anticoagulant at this point given she has completed the standard length of treatment and it does not appear that she has any further clots. HTN - per neuro recs, goal MAP of 100. - continue home cozaar 50mg qam FEN/GI regular diet DVT ppx: lovenox 40mg daily Dispo: Tele/ rehab on discharge Resident Physician Supervision Note: I interviewed and examined the patient. Discussed with Dr. Waters and agree with findings and plan as documented in the note. Any exceptions or clarifications are listed here: None Documented By: Ted Salmon feeling ok - ongoing L arm weakness, but working on it. family present, answered all questions to the best of my ability vitals noted nad breathing unlabored no pallor or icterus CVA - appearing intracranial atherosclerosis related to HTN, age, dyslipidemia -s/p tPA, continue BP meds, start asa, lipitor (09/30 discussion of risks/ benefits - benefit being plaque stabilization and optimization of lipids, risk being theoretical increased risk of ICH if lipids too suppressed - we discussed that with stroke having been real event, and ICH being theoretical, benefits likely outweigh the risks for at least the near future) Continued [facility] stay due to: multiple IV medications needed Resident Tracking Resident Involvement: Resident Care Provided Care Provided: Adult Hospital Medicine
--- NOTE | 2017-10-01 12:48 | DIAGNOSTIC IMAGING REPORT ---
SOFT TISS HEAD/NECK-THYROID HISTORY: Nodule firm, non tender, immobile, 3 cm left submandibular mass COMPARISON: None. FINDINGS: Soft tissue prominence in the left submandibular region measuring 2.6 x 3.0 x 1.0 cm. This potentially represents the left [address] of the soft tissue neck is suggested as follow-up. IMPRESSION: Palpable nodularity of the left submandibular region potentially represents a normal left submandibular gland. CT of the soft tissue neck neck is suggested for confirmation. The above report was generated using voice recognition software. It may contain grammatical, syntax or spelling errors. Electronically signed by: Markie Loredo M.D. 10/01/2017 10:54 AM Dictated Date/Time: 10/01/2017 10:51 AM
[2017-10-02] VITALS (8 sets, daily range): BP systolic 111–160; BP diastolic 68–81; PULSE 74–105; TEMP 36.3–36.7; O2SAT 92–96
[2017-10-02 04:42] LABS: BASO % 0.3 %; BASO ABS # 0.02 K/uL (0-0.2); EOS % 5.9 %; EOS ABS # 0.34 K/uL (0-0.5); HEMATOCRIT 42.1 % (37-47); HEMOGLOBIN 13.4 g/dL (12.0-16.0); IG# 0.01 K/uL (0.00-0.02); LYMPH % 37.4 %; LYMPH ABS # 2.14 K/uL (1.2-3.4); MEAN CELL VOLUME 90.7 fL (80-100); MEAN CORPUSCULAR HEMOGLOBIN 28.9 pg (25-34); MEAN CORPUSCULAR HGB CONC 31.8 g/dl (32-36); MEAN PLATELET VOLUME 10.1 fL (7.4-10.4); MONO % 12.8 %; MONO ABS # 0.73 K/uL (0.11-0.59); NEUT % 43.4 %; NEUT ABS # 2.48 K/uL (1.4-6.5); PLATELET COUNT 238 K/uL (130-400); WHITE BLOOD COUNT 5.72 K/uL (4.8-10.8)
[2017-10-02 05:00] LABS: CREATININE 0.89 mg/dl (0.60-1.20); POTASSIUM 3.9 mmol/L (3.5-5.1)
[2017-10-02] MEDS: LOSARTAN POTASSIUM 50 MG TAB PO SCH (07:54)
[2017-10-02] MEDS: ASPIRIN 81 MG ECTAB PO SCH (07:54)
[2017-10-02] MEDS: ATORVASTATIN 40 MG TAB PO SCH (07:54)
[2017-10-02] MEDS: ENOXAPARIN 40 MG/0.4 ML SYR SQ SCH (07:55)
--- NOTE | 2017-10-02 18:07 | Family Medicine Progress Note ---
Progress Note Date of Service Oct 02, 2017. Subjective Patient is out of bed and in her chair this morning, did traverse with some difficulty required 2 nurses to assist. Tolerating p.o. Reports feeling no worsening of her weakness or new paresthesias. Looking forward to rehab. ROS See HPI for pertinent positives and negatives. Otherwise denies new headache, vision change, chest pain, dyspnea, abdominal pain, loose or bloody stools, dysuria, or numbness tingling in extremities. Medications Current Inpatient Medications Medications (Trade) Dose Ordered Sig/Reji Route Start Time Stop Time Status Last Admin Dose Admin Miscellaneous Information (Pharmacist Discharge Med Rec Consult) 1 ea UD PRN N/A 09/29/17 19:30 10/29/17 19:29 Losartan Potassium (coZAAR TAB) 50 mg QAM PO 09/30/17 09:00 10/30/17 08:59 10/02/17 07:54 50 MG Atorvastatin Calcium (Lipitor Tab) 40 mg QAM PO 09/30/17 10:00 10/30/17 09:59 10/02/17 07:54 40 MG Acetaminophen (Tylenol Tab) 650 mg Q6H PRN PO 09/30/17 09:15 10/30/17 09:14 10/01/17 19:11 650 MG Aspirin (Ecotrin Tab) 81 mg QAM PO 10/01/17 09:00 10/31/17 08:59 10/02/17 07:54 81 MG Enoxaparin Sodium (Lovenox Inj) 40 mg DAILY SQ 10/01/17 09:00 10/31/17 08:59 10/02/17 07:55 40 MG Objective Vital Signs Date Time Temp Pulse Resp B/P (MAP) Pulse Ox O2 Delivery O2 Flow Rate FiO2 10/02/17 16:00 Room Air 10/02/17 15:38 36.3 90 22 111/68 (82) 96 Room Air 10/02/17 13:00 36.5 105 20 127/71 (89) 95 Room Air 10/02/17 11:07 Room Air 10/02/17 08:00 36.7 89 18 96 Room Air 10/02/17 04:00 96 Room Air 10/02/17 03:30 36.3 86 19 160/76 (104) 96 Room Air 10/01/17 23:59 97 Room Air 10/01/17 23:30 36.3 75 17 173/78 (109) 96 Room Air 10/01/17 19:36 36.8 90 22 139/82 (101) 97 10/01/17 19:30 89 24 Physical Exam Notes: GENERAL: Awake, alert, well-appearing, in no distress HENT: Normocephalic, atraumatic. EYES: Normal conjunctiva. Sclera non-icteric. EOMI. NECK: Supple. Full range of motion. no JVD RESPIRATORY: Clear to auscultation. CARDIAC: Regular rate, normal rhythm. Extremities warm and well perfused. Pulses equal. ABDOMEN: Soft, non-distended. No tenderness to palpation. No rebound or guarding. No masses. LOWER EXTREMITIES: Calves are equal size bilaterally and non-tender. No edema. No discoloration. NEURO: + left hemiparesis, weakness most pronounced in the digits of her left hand, relatively good strength in her left shoulder and bicep. Left lower extremity strength is almost normal and almost equal to right foot. CN II-XII in tact. No aphasia. Thought process within normal limits. SKIN: No rash or jaundice noted. Laboratory Results 10/02/17 04:24 Red Blood Count 4.64, Mean Corpuscular Volume 90.7, Mean Corpuscular Hemoglobin 28.9, Mean Corpuscular Hemoglobin Concent 31.8, Mean Platelet Volume 10.1, Neutrophils (%) (Auto) 43.4, Lymphocytes (%) (Auto) 37.4, Monocytes (%) (Auto) 12.8, Eosinophils (%) (Auto) 5.9, Basophils (%) (Auto) 0.3, Neutrophils # (Auto ) 2.48, Lymphocytes # (Auto) 2.14, Monocytes # (Auto) 0.73, Eosinophils # (Auto ) 0.34, Basophils # (Auto) 0.02 10/02/17 04:24 Test 10/02/17 04:24 White Blood Count 5.72 K/uL (4.8-10.8) Red Blood Count 4.64 M/uL (4.2-5.4) Hemoglobin 13.4 g/dL (12.0-16.0) Hematocrit 42.1 % (37-47) Mean Corpuscular Volume 90.7 fL (80-100) Mean Corpuscular Hemoglobin 28.9 pg (25-34) Mean Corpuscular Hemoglobin Concent 31.8 g/dl (32-36) Platelet Count 238 K/uL (130-400) Mean Platelet Volume 10.1 fL (7.4-10.4) Neutrophils (%) (Auto) 43.4 % Lymphocytes (%) (Auto) 37.4 % Monocytes (%) (Auto) 12.8 % Eosinophils (%) (Auto) 5.9 % Basophils (%) (Auto) 0.3 % Neutrophils # (Auto) 2.48 K/uL (1.4-6.5) Lymphocytes # (Auto) 2.14 K/uL (1.2-3.4) Monocytes # (Auto) 0.73 K/uL (0.11-0.59) Eosinophils # (Auto) 0.34 K/uL (0-0.5) Basophils # (Auto) 0.02 K/uL (0-0.2) RDW Standard Deviation 43.0 fL (36.4-46.3) RDW Coefficient of Variation 13.0 % (11.5-14.5) Immature Granulocyte % (Auto) 0.2 % Immature Granulocyte # (Auto) 0.01 K/uL (0.00-0.02) Prothrombin Time 10.1 SECONDS (9.0-12.0) Prothromb Time International Ratio 1.0 (0.9-1.1) Anion Gap 7.0 mmol/L (3-11) Est Creatinine Clear Calc Drug Dose 43.3 ml/min Estimated GFR () 67.5 Estimated GFR (Non- 58.3 BUN/Creatinine Ratio 19.5 (10-20) Calcium Level 8.0 mg/dl (8.5-10.1) Assessment and Plan 87 F here for CVA s/p TPA Right periventricular infarct-stable - Per report to neurologist, symptoms on left side began around 1600 09/29/17. TPA given at 19:00 09/29/[address] ruled out hemorrhage. - Echo shows normal systolic function, no wall motion abnormalities. Ejection Fraction = 60-65%. - CXR normal - Carotid US showed no significant stenosis - venous doppler shows no DVT's bilaterally - Head MRA shows no sign stenosis/occlusion/aneurysm in the [place]. - Brain MRI shows small acute right periventricular infarct. - CBC, CMP unremarkable, fasting lipids reveals total chol <200. - ASA 81mg to start daily and activity orders per tPA day 2 order set. -Plan for discharge to [facility]. Awaiting auth. Normal pressure hydrocephalus, s/p TURBINE ATTENDANT shunt 2015 - no acute issues, shunt in tact on imaging - with a TURBINE ATTENDANT shunt, per neuro, higher risk for subdural hematoma. Discussed that eliquis could increase risk of bleeding there. Patient agreed, she does not wish to start Eliquis at this time. 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 -Stable, no worsening signs. HTN - per neuro recs, goal MAP of 100. - continue home cozaar 50mg qam FEN/GI regular diet CODE STATUS: DNR Dispo: Awaiting insurance authorization to go to rehab at [facility]. Resident Physician Supervision Note: I interviewed and examined the patient. Discussed with Dr. Waters and agree with findings and plan as documented in the note. Any exceptions or clarifications are listed here: None Documented By: Ted Salmon feeling ok - ongoing L arm weakness, but working on it. awaiting approval for rehab vitals noted nad breathing unlabored no pallor or icterus CVA - appearing intracranial atherosclerosis related to HTN, age, dyslipidemia -s/p tPA, continue BP meds, start asa, lipitor (09/30 discussion of risks/ benefits - benefit being plaque stabilization and optimization of lipids, risk being theoretical increased risk of ICH if lipids too suppressed - we discussed that with stroke having been real event, and ICH being theoretical, benefits likely outweigh the risks for at least the near future), stable for rehab once approved Continued [facility] stay due to: other Discharge planning: rehab hospital Resident Tracking Resident Involvement: Resident Care Provided Care Provided: Adult Hospital Medicine
[2017-10-02] MEDS ORDERED: ASPI-461 PO (18:17)
[2017-10-02] MEDS: ACETAMINOPHEN 325 MG TAB PO PRN (20:47)
[2017-10-03 04:18] VITALS: BP 121/72; PULSE 76; TEMP 36.4; O2SAT 96
[2017-10-03 07:12] VITALS: BP 162/82; PULSE 76; TEMP 36.6; O2SAT 96
[2017-10-03] MEDS: ACETAMINOPHEN 325 MG TAB PO PRN ×2 (08:49→15:10)
[2017-10-03] MEDS: LOSARTAN POTASSIUM 50 MG TAB PO SCH (09:17)
[2017-10-03] MEDS: ATORVASTATIN 40 MG TAB PO SCH (09:17)
[2017-10-03] MEDS: ASPIRIN 81 MG ECTAB PO SCH (09:17)
[2017-10-03] MEDS: ENOXAPARIN 40 MG/0.4 ML SYR SQ SCH (09:25)
--- NOTE | 2017-10-03 10:08 | Discharge Instructions ---
Discharge Instructions Date of Service Oct 03, 2017. Admission Reason for Admission: Stroke Discharge Discharge Diagnosis / Problem: Cerebrovascular Accident Discharge Goals Goal(s): Decrease discomfort, Improve function, Increase independence, Improve disease control, Learn about illness, Diagnostic testing, Therapeutic intervention Activity Recommendations Activity Level: Assistance Required Therapies: Physical Therapy, Occupational Therapy Exercise/Sports Limitations: gradually increase as tolerated Shower/Bathe: no limitations PT Goal Comment * Pt states goal: "I want to get this L hand working." Therapeutic exercises - bridging, 1/2 bridges, LTR, L hip abd/knee flex->knee ext/hip add over side of bed; ankle pumps Static & dynamic standing activities c Kathya OT Recommendations * Evaluation completed. Pt is not safe to return to her home at her current level of function. She will require continued in patient therapies after discharge from [facility]. Pt is an excellend candidate for acute in patient rehabilitation. Treatment consisted of active assistive ROM of L upper extremity and education re: OT goals and treatment. Pt very receptive to all interventions. . Additional Information Patient informed of condition: Yes Advance Directives: Yes DNR: Yes Level of Care: Acute Rehab Communicable Disease: No Prognosis: Improving Palmer Catheter: No Instructions / Follow-Up Instructions / Follow-Up 87 F here for CVA s/p TPA Right periventricular infarct-stable s/p TPA - SEE PT/OT RECOMMENDATIONS - symptoms on left side began around 1600 09/29/17. TPA given at 19:00 09/29/[address] ruled out hemorrhage. - Echo shows normal systolic function, no wall motion abnormalities. Ejection Fraction = 60-65%. - CXR normal - Carotid US showed no significant stenosis - venous doppler shows no DVT's bilaterally - Head MRA shows no sign stenosis/occlusion/aneurysm in the [place]. - Brain MRI shows small acute right periventricular infarct. - CBC, CMP unremarkable, fasting lipids reveals total chol <200. - ASA 81mg to start daily - RECOMMEND INPATIENT REHAB Normal pressure hydrocephalus, s/p CHIEF CREATIVE OFFICER shunt 2015 - no acute issues, shunt in tact on imaging - with a CHIEF CREATIVE OFFICER shunt, per neuro, higher risk for subdural hematoma. Discussed that eliquis could increase risk of bleeding there. Patient agreed, she does not wish to start Eliquis at this time. 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 -Stable, no worsening signs. HTN - per neuro recs, goal MAP of 100. - continue home cozaar 50mg qam FEN/GI regular diet CODE STATUS: DNR DVT PPX: mechanical scd's given here. Current Hospital Diet Patient's current hospital diet: AHA Diet (Heart Healthy) Discharge Diet Recommended Diet: AHA Diet (Heart Healthy) Procedures Procedures Performed: TPA Pending Studies Studies pending at discharge: no Laboratory Results Hemoglobin A1c Test 09/29/17 18:20 Range/Units Estimated Average Glucose 114 mg/dl Hemoglobin A1c 5.6 4.5-5.6 % Lipid Panel Test 09/30/17 04:29 Range/Units Triglycerides Level 85 0-150 mg/dl Cholesterol Level 159 0-200 mg/dl HDL Cholesterol 51 mg/dl Cholesterol/HDL Ratio 3.1 LDL Cholesterol, Calculated 91 mg/dl Medical Emergencies . Who to Call and When: Medical Emergencies: If at any time you feel your situation is an emergency, please call 911 immediately. . Non-Emergent Contact Non-Emergency issues call your: Primary Care Provider Call Non-Emergent contact if: you have any medication questions . . "Provider Documentation" section prepared by Mayte Waters. . Core Measure Problem Core Measures: Stroke Stroke Core Measures Reason no t-PA for Stroke: Treatment provided - N/A Reason no antithrom by day 2: Treatment provided - N/A Reason no antithrom at D/C: Treatment provided - N/A Reason no statin at D/C: Treatment provided - N/A Reason no anticoag w/a fib: Treatment not indicated
[2017-10-03] MEDS ORDERED: LPT40 PO (10:09)
--- NOTE | 2017-10-03 10:12 | Discharge Summary ---
Discharge Summary Date of Service Oct 03, 2017. 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 [facility] overnight ROS See HPI for pertinent positives and negatives. Otherwise denies new headache, vision change, chest pain, dyspnea, abdominal pain, loose or bloody stools, dysuria, or numbness tingling in extremities. PHYSICAL EXAM GENERAL: Awake, alert, well-appearing, in no distress HENT: Normocephalic, atraumatic. EYES: Normal conjunctiva. Sclera non-icteric. EOMI. NECK: Supple. Full range of motion. no JVD RESPIRATORY: Clear to auscultation. CARDIAC: Regular rate, normal rhythm. Extremities warm and well perfused. Pulses equal. ABDOMEN: Soft, non-distended. No tenderness to palpation. No rebound or guarding. No masses. LOWER EXTREMITIES: Calves are equal size bilaterally and non-tender. No edema. No discoloration. NEURO: + left hemiparesis, weakness most pronounced in the digits of her left hand, relatively good strength in her left shoulder and bicep. Left lower extremity strength is almost normal and almost equal to right foot. CN II-XII in tact. No aphasia. Thought process within normal limits. SKIN: No rash or jaundice noted. Hospital Course Activity Level: Assistance Required Therapies: Physical Therapy, Occupational Therapy Exercise/Sports Limitations: gradually increase as tolerated Shower/Bathe: no limitations PT Goal Comment * Pt states goal: "I want to get this L hand working." Therapeutic exercises - bridging, 1/2 bridges, LTR, L hip abd/knee flex->knee ext/hip add over side of bed; ankle pumps Static & dynamic standing activities c Kathya OT Recommendations * Evaluation completed. Pt is not safe to return to her home at her current level of function. She will require continued in patient therapies after discharge from [facility]. Pt is an excellend candidate for acute in patient rehabilitation. Treatment consisted of active assistive ROM of L upper extremity and education re: OT goals and treatment. Pt very receptive to all interventions. . Right periventricular infarct-stable s/p TPA - SEE PT/OT RECOMMENDATIONS - symptoms on left side began around 1600 09/29/17. TPA given at 19:00 09/29/[address] ruled out hemorrhage. - Echo shows normal systolic function, no wall motion abnormalities. Ejection Fraction = 60-65%. - CXR normal - Carotid US showed no significant stenosis - venous doppler shows no DVT's bilaterally - Head MRA shows no sign stenosis/occlusion/aneurysm in the [place]. - Brain MRI shows small acute right periventricular infarct. - CBC, CMP unremarkable, fasting lipids reveals total chol <200. 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 Discussed that eliquis could increase risk of bleeding there. Patient agreed, she does not wish to start Eliquis at this time. 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 -Stable, no worsening signs. HTN - per neuro recs, goal MAP of 100. - continue home cozaar 50mg qam FEN/GI regular diet CODE STATUS: DNR DVT PPX: mechanical scd's given here. Resident Physician Supervision Note: I interviewed and examined the patient. Discussed with Dr. Waters and agree with findings and plan as documented in the note. Any exceptions or clarifications are listed here: None Documented By: Ted Salmon actually seems to be moving L arm more! vitals noted nad breathing unlabored no pallor or icterus CVA - appearing intracranial atherosclerosis related to HTN, age, dyslipidemia -s/p tPA, continue BP meds, start asa, lipitor (09/30 discussion of risks/ benefits - benefit being plaque stabilization and optimization of lipids, risk being theoretical increased risk of ICH if lipids too suppressed - we discussed that with stroke having been real event, and ICH being theoretical, benefits likely outweigh the risks for at least the near future) stable for rehab, then outpt f/u Total Time Spent: Less than 30 minutes This includes examination of the patient, discharge planning, medication reconciliation, and communication with other providers. Discharge Instructions Please refer to the electronic Patient Visit Report (Discharge Instructions) for additional information. Additional Copies To [facility]; [facility]; Morgan Wen M.D. Resident Tracking Resident Involvement: Resident Care Provided Care Provided: Adult Hospital Medicine
[2017-10-03 11:54] VITALS: BP 117/62; PULSE 90; TEMP 36.4; O2SAT 95
== END 2017-10-03 16:09 | DRG 62 ==
LOC: EDBD 17:54 → C.EDA 17:59 → C.MSICU 19:29 → ENRESERV 19:37 → C.2T 10-02 18:52
PROVIDERS: ADMIT Hospitalist; ATTEND Family Medicine
DX: I63.9 Cerebral infarction, unspecified (principal); G81.94 Hemiplegia, unspecified affecting left nondominant side; R29.702 NIHSS score 2; I16.0 Hypertensive urgency; I10 Essential (primary) hypertension; M54.2 Cervicalgia; M54.5 Low back pain; Z66 Do not resuscitate; Z86.718 Personal history of other venous thrombosis and embolism; Z98.2 Presence of cerebrospinal fluid drainage device; Z79.899 Other long term (current) drug therapy; Z88.0 Allergy status to penicillin; Z88.1 Allergy status to other antibiotic agents

== ENCOUNTER 2019-04-30 08:26 | Inpatient (IN) ==
[2019-04-30] MEDS ORDERED: ALBUT/IPRATROP 3MG/0.5MG NEB 3 ML VIAL NEB ONE (08:39)
[2019-04-30] MEDS ORDERED: methylPREDNISolone 125 MG/2 ML VIAL IV STA (08:41)
--- NOTE | 2019-04-30 09:02 | XRay Report ---
XR chest 1V portable CLINICAL HISTORY: 88 years-old Female presenting with Chest Pain. TECHNIQUE: Portable upright AP view of the chest was obtained. COMPARISON: 04/15/2019. FINDINGS: A catheter descends along the right neck and right hemithorax, intact and the visualized portion, cou rsing towards the abdomen. Atherosclerosis of the aortic arch. Tortuosity of the thoracic aorta. Card iac silhouette top normal in size. Mildly decreased aeration of the lungs. Increased pulmonary vascul ar prominence and bilateral hilar prominence, presumably vascular. Of the added density of the lung b ases. No focal opacity. No large effusion or pneumothorax. Degenerative changes of the thoracic spine . Degenerative changes of the shoulders. Osteopenia. Cervical fusion hardware. Upper abdomen normal. IMPRESSION: 1. Findings suggest volume overload and mild congestive change. No oliva pulmonary edema. 2. Minimal bibasilar atelectasis suspected. ACT 112: Negative or not required by law. Electronically signed by: Jason Bowling M.D. 04/30/2019 9:00 AM
[2019-04-30] MEDS ORDERED: ACETAMINOPHEN 500 MG TAB PO STA (09:05)
[2019-04-30 09:11] LABS: Basophils # (auto) 0.04 K/uL (0-0.2); Basophils % (auto) 0.4 %; Eosinophils # (auto) 0.03 K/uL (0-0.5); Eosinophils % (auto) 0.3 %; Hematocrit (blood only) 44.2 % (37-47); Hemoglobin 14.3 g/dL (12.0-16.0); Immature Granulocytes # (auto) 0.02 K/uL (0.00-0.02); Immature Granulocytes % (auto) 0.2 %; Lymphocytes # (auto) 1.28 K/uL (1.2-3.4); Lymphocytes % (auto) 13.1 %; Mean Corpuscular Hemoglobin 29.6 pg (25-34); Mean Corpuscular Hgb Conc 32.4 g/dL (32-36); Mean Corpuscular Volume 91.5 fL (80-100); Mean Platelet Volume 9.7 fL (7.4-10.4); Monocytes # (auto) 1.03 K/uL (0.11-0.59); Monocytes % (auto) 10.6 %; Neutrophils # (auto) 7.34 K/uL (1.4-6.5); Neutrophils % (auto) 75.4 %; Platelet Count 229 K/uL (130-400); RDW Coefficient of Variation 13.1 % (11.5-14.5); Red Blood Count 4.83 M/uL (4.2-5.4); White Blood Count 9.74 K/uL (4.8-10.8)
[2019-04-30] MEDS ORDERED: LOSARTAN POTASSIUM 50 MG TAB PO SCH (09:15)
[2019-04-30 09:22] LABS: Partial Thromboplastin Time 26.7 Seconds (21.0-31.0); Prothrombin Time 10.3 Seconds (9.0-12.0)
[2019-04-30 09:27] LABS: Alanine Aminotransferase 21 U/L (12-78); Albumin Level 3.7 gm/dl (3.4-5.0); Aspartate Aminotransferase 19 U/L (15-37); BUN Creatinine Ratio 9.9 (10-20); Blood Urea Nitrogen 9 mg/dl (7-18); Calcium 9.1 mg/dl (8.5-10.1); Carbon Dioxide 25 mmol/L (21-32); Chloride 103 mmol/L (98-107); Creatinine Clr Calc Pharmacy 44.1 ml/min; Est GFR (African American) 62.8; Est GFR (Non-African American) 54.2; Glucose 119 mg/dl (70-99); Lipase 108 U/L (73-393); Potassium 4.1 mmol/L (3.5-5.1); Sodium 134 mmol/L (136-145)
[2019-04-30 09:33] LABS: Alkaline Phosphatase 98 U/L (45-117); Bilirubin,Total 0.8 mg/dl (0.2-1); Creatine Kinase 220 U/L (26-192); Creatine Kinase MB 1.8 ng/ml (0.5-3.6); Globulin 3.6 gm/dl (2.5-4.0); Total Protein 7.3 gm/dl (6.4-8.2); Troponin I < 0.015 ng/ml (0-0.045)
--- NOTE | 2019-04-30 09:36 | CT Scan Report ---
CT head/brain wo con CLINICAL HISTORY: Acute change in mental status COMPARISON STUDY: 09/30/2017 TECHNIQUE: Axial CT of the brain is performed from the vertex to the skull base. IV contrast was not administered for this examination. A dose lowering technique was utilized adhering to the principles of ALARA. CT DOSE: 638.56 mGycm FINDINGS: No intra or extra-axial mass lesions are visualized. There is no CT evidence of acute cortical infarc tion. There is no evidence of midline shift. There is no acute hemorrhage. No calvarial fractures ar e visualized. There are patchy white matter hypodensities likely on a small vessel basis. There is no evidence of pathologic ventricular dilatation. There is a right occipital ventriculostomy catheter. The tip terminates adjacent to septum pellucidum. This is unchanged from the prior study. There is a new deep white matter right periventricular infarct which was not present on the prior CT, but was visible on an MRI dated 09/30/2017. There is maxillary ethmoid and sphenoid sinus mucosal thickening. IMPRESSION: 1. No acute intracranial findings ACT 112: Negative or not required by law. Electronically signed by: Kong Burk M.D. 04/30/2019 9:34 AM
[2019-04-30 09:52] LABS: Influenza A virus by PCR Neg for Influ A (Neg); Influenza B virus by PCR Neg for Influ B (Neg)
[2019-04-30] MEDS ORDERED: FUROSEMIDE 40 MG/4 ML VIAL IV STA (09:54)
--- NOTE | 2019-04-30 11:41 | History & Physical Report ---
Date of Service April 30, 2019 Assessment & Plan (1) Cough: 80-year-old female with history of hypertension, hyperlipidemia, pre-existing lung disease that she is aware of presenting with shortness of breath/dyspnea on exertion and cough ongoing for the last 10 days. Patient is afebrile, sinus tachycardic to 126 bpm, tachypneic and saturating 89% on room air. Saturations have improved, presently 96% on 2 L nasal cannula. Pulmonary exam with diffuse expiratory wheezing. No evidence of pneumonia, doubt volume overload/CHF, doubt cough is secondary to losartan. Admit to medical floor telemetry monitoring Check d-dimer. Low suspicion for PE, however, patient has had 2 prior PEs in the past, not on anticoagulation, she has JOHN, ST and hypoxia. If negative, no further work-up. If positive will consider CTA chest Xopenex/Atrovent nebs every 6 hours Solu-Medrol 20 mg IV 3 times daily Continue Tessalon Perles 3 times daily. Continue Mucinex -Incentive spirometry Supplemental oxygen as needed to maintain saturations of 92% Present on Admission?: Yes (2) Shortness of breath: As above. Suspect reactive airway disease versus COPD Treatment as above Patient is already scheduled for outpatient PFTs next Friday. I recommended to patient's son that he keep this appointment for now Present on Admission?: Yes (3) Elevated CK: Patient with mild elevation of CK. Unknown significance at this time.? Viral or steroid-induced myopathy versus medication effects from statin Repeat CK in the morning (4) Hypertension: Blood pressure high on arrival. Now improved after administration of home dose of losartan. Presently 129/96 Continue losartan 50 mg p.o. every morning Present on Admission?: Yes (5) Hyperlipidemia: Chronic. Continue atorvastatin (6) Stroke: Patient with prior stroke with residual left-sided weakness, occasional swelling occurs in her left lower extremity as well. Presently with no acute neurological deficits Continue aspirin 81 mg p.o. daily Continue atorvastatin 40 mg p.o. nightly. Patient with mild elevation of total CK, comments that occasionally she has muscle soreness. Question medication effects versus viral myopathy versus rheumatological cause Present on Admission?: Yes (7) History of DVT (deep vein thrombosis): Noted. No acute evidence of DVT at this time Lovenox for DVT prophylaxis F/E/N -patient received Lasix in the ER. Will hold off on additional diuresis at this time. Monitor electrolytes and replete as needed. Heart healthy diet as tolerated. Continue bowel regimen. ProphylaxisLovenox for DVT prophylaxis CodeDNR/DNI per discussion with patient. Son at bedside Dispositionadmit to medical floor telemetry monitoring Present on Admission?: Yes History of Present Illness Chief Complaint: Shortness of breath, headache, feeling ill Primary Care Provider: Morgan Wen MD Stefanie Lozada is a pleasant 88-year-old female with history of hypertension/hyperlipidemia/prior DVT x2, prior CVA with residual left-sided weakness. She presents today from her group home with complaints of shortness of breath and headache. The patient was seen in the ER 3 weeks ago with left shoulder pain and hypertension. She had a negative troponin, shoulder x-ray and EKG at that time. She was discharged home in stable condition. Approximately 10 days ago she developed cough/cold symptoms and mild shortness of breath. She was seen by her PCP on 04/15/2019 and given inhaler and prednisone taper per patient's son. She took his medications with slight improvement in her symptoms. She was seen again by her PCP on 04/28/2019. She had a negative flu at that visit. She was prescribed Symbicort and Tessalon Perles. Son states that her Symbicort was denied by insurance therefore, she has not yet taken this medication. PFTs were ordered by primary physician and are scheduled for 05/04/2019. She presents today with worsening cough over the last week. It is constant, dry with occasional clear sputum. She has severe dyspnea on exertion and decreased exercise tolerance as well as occasional dizziness with ambulation. Denies chest pain/palpitations. Denies orthopnea/weight gain/edema. Denies fever/chills/sweats/purulent sputum. She has had poor sleep for the last week due to her cough. Last night she developed a severe headache over her right eye. Her blood pressure was reportedly in the 220s at her group home. ER course: Tylenol, albuterol, Lasix, losartan, Solu-Medrol Allergies Allergy/AdvReac Type Severity Reaction Status Date / Time Penicillins Allergy Unknown Unknown Verified 04/30/19 09:20 Macrolide Antibiotics AdvReac Mild GI Symptoms Verified 04/30/19 09:20 Home Medications Home Medications Medication Instructions Recorded Confirmed Type acetaminophen [Tylenol Extra 500 mg PO Q4H PRN MDD 3 GRAMS/24 06/02/18 04/30/19 History Strength] HOURS aspirin [Aspir-81] 81 mg PO DAILY 06/02/18 04/30/19 History cholecalciferol (vitamin D3) 2,000 unit PO DAILY 06/02/18 04/30/19 History [Vitamin D3] diphenhydramine HCl [Allergy 25 - 50 mg PO Q4H PRN MDD 6 06/02/18 04/30/19 History Relief(diphenhydramin)] DOSES/24 HOURS. loperamide [Imodium A-D] 2 mg PO Q3H PRN 06/02/18 04/30/19 History losartan 50 mg PO QAM 06/02/18 04/30/19 History atorvastatin 40 mg tablet 40 mg PO HS #90 tab 09/29/18 04/30/19 Rx acetaminophen 500 mg PO DAILY 04/05/19 04/30/19 History docusate sodium [Stool Softener] 100 mg PO BID PRN 04/05/19 04/30/19 History propylene glycol [Systane Complete] 1 drp OPB QID PRN 04/05/19 04/30/19 History benzonatate 100 mg capsule 200 mg PO TID PRN #180 cap 04/28/19 04/30/19 Rx albuterol sulfate [ProAir HFA] 2 puffs INH QID PRN 04/30/19 04/30/19 History ogzrgzfrz-BU-mzihtbfk-guaifen 20 ml PO QID 04/30/19 04/30/19 History [Mucinex Cold,Flu,Sore Throat] Past Med/Surg History Medical History Carpal tunnel syndrome Carpal tunnel syndrome CVA (cerebral vascular accident) (Inactive) History of DVT (deep vein thrombosis) (Resolved) "Second DVT: November 19, 2016 right posterior tibial vein First DVT: March 11, 2012 extensive thrombus within the greater saphenous vein that extends proximally into the common femoral vein" HTN (hypertension) Hyperlipidemia Lumbosacral disc disease with surgical intervention Normal pressure hydrocephalus (Chronic) Stroke (Resolved) Surgical History H/O mastectomy left side History of appendectomy (Resolved) History of back surgery History of carpal tunnel surgery History of Neuroplasty Decompression Median Nerve At Carpal Tunnel History of cataract surgery History of cholecystectomy History of lumbar fusion History of Lumbar Vertebral Fusion History of mastectomy History of vaginal hysterectomy Hx of cholecystectomy (Resolved) Hx of vaginal hysterectomy (Resolved) S/P [employer] shunt (Chronic) Family History Family/Other Breast cancer Mother Tuberculosis Father Stroke Other Lung disease Social History Preferred Language: Gabonese marital status: current occupational status: retired Feels Safe at Home: Yes Smoking Status: Never smoker Review of Systems Review of Systems: All systems reviewed & are unremarkable except as noted in HPI & below Physical Exam Physical Exam: General: patient resting in bed, visibly dyspneic after getting up to the bedside commode which improved with rest. NAD, non-toxic in appearance, AA&O x 4 Skin: warm, dry, intact, no rashes or lesions HEENT: NC/AT, PERRL, EOMI, anicteric sclera, conjunctiva without injection, external ear normal to inspection and nontender, nares patent, moist mucus membranes, dentition intact, no oropharyngeal lesions, neck supple, trachea midline, no LAD, no thyromegaly, no JVD Heart: +S1/S2, regular, tachycardic, no m/r/g Lungs: equal air entry bilaterally, diffuse expiratory wheezing heard throughout, no rales/rhonchi Abd: +BS, soft, NT/ND, no masses/organomegaly/ascites Ext: warm, 2+ pulses in UE/LE bilaterally, no clubbing/cyanosis or edema Neuro: nonfocal, patient AA&O x 4, speech intact, no facial droop, moving all extremities on command with equal strength 5/5 Results & Data Vital Signs (Past 12 Hours) Vital Signs Temp Pulse Resp BP Pulse Ox 04/30/19 10:15 126 H 17 129/96 90 04/30/19 10:00 113 H 19 153/85 H 98 04/30/19 09:47 108 H 15 152/96 H 99 04/30/19 09:10 20 99 04/30/19 08:45 117 H 17 154/96 H 95 04/30/19 08:42 118 H 19 187/110 H 96 04/30/19 08:40 37.1 C 120 H 28 H 187/110 H 98 Laboratory Results Lab Results 04/30/19 04/30/19 04/30/19 Range/Units 08:45 09:00 09:00 WBC 9.74 (4.8-10.8) K/uL RBC 4.83 (4.2-5.4) M/uL Hgb 14.3 (12.0-16.0) g/dL Hct 44.2 (37-47) % MCV 91.5 (80-100) fL MCH 29.6 (25-34) pg MCHC 32.4 (32-36) g/dL RDW Std Deviation 44.0 (36.4-46.3) fL RDW Coeff of Mariluz 13.1 (11.5-14.5) % Plt Count 229 (130-400) K/uL MPV 9.7 (7.4-10.4) fL Immature Gran % (Auto) 0.2 % Neut % (Auto) 75.4 % Lymph % (Auto) 13.1 % Stewart % (Auto) 10.6 % Eos % (Auto) 0.3 % Baso % (Auto) 0.4 % Immature Gran # (Auto) 0.02 (0.00-0.02) K/uL Neut # (Auto) 7.34 H (1.4-6.5) K/uL Lymph # (Auto) 1.28 (1.2-3.4) K/uL Stewart # (Auto) 1.03 H (0.11-0.59) K/uL Eos # (Auto) 0.03 (0-0.5) K/uL Baso # (Auto) 0.04 (0-0.2) K/uL PT 10.3 (9.0-12.0) Seconds INR 1.0 (0.9-1.1) APTT 26.7 (21.0-31.0) Seconds PTT Ratio 1.0 Sodium (136-145) mmol/L Potassium (3.5-5.1) mmol/L Chloride (98-107) mmol/L Carbon Dioxide (21-32) mmol/L Anion Gap (3-11) BUN (7-18) mg/dl Creatinine (0.6-1.2) mg/dl Est Cr Clr Drug Dosing ml/min Est GFR ( Amer) Est GFR (Non-Af Amer) BUN/Creatinine Ratio (10-20) Glucose (70-99) mg/dl Calcium (8.5-10.1) mg/dl Total Bilirubin (0.2-1) mg/dl AST (15-37) U/L ALT (12-78) U/L Alkaline Phosphatase (45-117) U/L Total Creatine Kinase (26-192) U/L CK-MB (CK-2) (0.5-3.6) ng/ml CK/CKMB % Calc (0-3.0) Troponin I (0-0.045) ng/ml NT-Pro-B Natriuret Pep (0-1800) pg/ml Total Protein (6.4-8.2) gm/dl Albumin (3.4-5.0) gm/dl Globulin (2.5-4.0) gm/dl Albumin/Globulin Ratio (0.9-2) Lipase (73-393) U/L Influenza Type A (PCR) Neg for Influ A (Neg) Influenza Type B (PCR) Neg for Influ B (Neg) 04/30/19 04/30/19 Range/Units 09:00 09:00 WBC (4.8-10.8) K/uL RBC (4.2-5.4) M/uL Hgb (12.0-16.0) g/dL Hct (37-47) % MCV (80-100) fL MCH (25-34) pg MCHC (32-36) g/dL RDW Std Deviation (36.4-46.3) fL RDW Coeff of Mariluz (11.5-14.5) % Plt Count (130-400) K/uL MPV (7.4-10.4) fL Immature Gran % (Auto) % Neut % (Auto) % Lymph % (Auto) % Stewart % (Auto) % Eos % (Auto) % Baso % (Auto) % Immature Gran # (Auto) (0.00-0.02) K/uL Neut # (Auto) (1.4-6.5) K/uL Lymph # (Auto) (1.2-3.4) K/uL Stewart # (Auto) (0.11-0.59) K/uL Eos # (Auto) (0-0.5) K/uL Baso # (Auto) (0-0.2) K/uL PT (9.0-12.0) Seconds INR (0.9-1.1) APTT (21.0-31.0) Seconds PTT Ratio Sodium 134 L (136-145) mmol/L Potassium 4.1 (3.5-5.1) mmol/L Chloride 103 (98-107) mmol/L Carbon Dioxide 25 (21-32) mmol/L Anion Gap 6.0 (3-11) BUN 9 (7-18) mg/dl Creatinine 0.94 (0.6-1.2) mg/dl Est Cr Clr Drug Dosing 44.1 ml/min Est GFR ( Amer) 62.8 Est GFR (Non-Af Amer) 54.2 BUN/Creatinine Ratio 9.9 L (10-20) Glucose 119 H (70-99) mg/dl Calcium 9.1 (8.5-10.1) mg/dl Total Bilirubin 0.8 (0.2-1) mg/dl AST 19 (15-37) U/L ALT 21 (12-78) U/L Alkaline Phosphatase 98 (45-117) U/L Total Creatine Kinase 220 H (26-192) U/L CK-MB (CK-2) 1.8 (0.5-3.6) ng/ml CK/CKMB % Calc 0.8 (0-3.0) Troponin I < 0.015 (0-0.045) ng/ml NT-Pro-B Natriuret Pep 394 (0-1800) pg/ml Total Protein 7.3 (6.4-8.2) gm/dl Albumin 3.7 (3.4-5.0) gm/dl Globulin 3.6 (2.5-4.0) gm/dl Albumin/Globulin Ratio 1.0 (0.9-2) Lipase 108 (73-393) U/L Influenza Type A (PCR) (Neg) Influenza Type B (PCR) (Neg) Diagnostic Findings XR chest 1V portable CLINICAL HISTORY: 88 years-old Female presenting with Chest Pain. TECHNIQUE: Portable upright AP view of the chest was obtained. COMPARISON: 04/15/2019. FINDINGS: A catheter descends along the right neck and right hemithorax, intact and the visualized portion, coursing towards the abdomen. Atherosclerosis of the aortic arch. Tortuosity of the thoracic aorta. Cardiac silhouette top normal in size. Mildly decreased aeration of the lungs. Increased pulmonary vascular prominence and bilateral hilar prominence, presumably vascular. Of the added density of the lung bases. No focal opacity. No large effusion or pneumothorax. Degenerative changes of the thoracic spine. Degenerative changes of the shoulders. Osteopenia. Cervical fusion hardware. Upper abdomen normal. IMPRESSION: 1. Findings suggest volume overload and mild congestive change. No oliva pulmonary edema. 2. Minimal bibasilar atelectasis suspected. ACT 112: Negative or not required by law. Electronically signed by: Jason Bowling M.D. 04/30/2019 9:00 AM Dictated: 04/30/19857 Transcribed: 04/30/19857 CT head/brain wo con CLINICAL HISTORY: Acute change in mental status COMPARISON STUDY: 09/30/2017 TECHNIQUE: Axial CT of the brain is performed from the vertex to the skull base. IV contrast was not administered for this examination. A dose lowering technique was utilized adhering to the principles of ALARA. CT DOSE: 638.56 mGycm FINDINGS: No intra or extra-axial mass lesions are visualized. There is no CT evidence of acute cortical infarction. There is no evidence of midline shift. There is no acute hemorrhage. No calvarial fractures are visualized. There are patchy white matter hypodensities likely on a small vessel basis. There is no evidence of pathologic ventricular dilatation. There is a right occipital ventriculostomy catheter. The tip terminates adjacent to septum pellucidum. This is unchanged from the prior study. There is a new deep white matter right periventricular infarct which was not present on the prior CT, but was visible on an MRI dated 09/30/2017. There is maxillary ethmoid and sphenoid sinus mucosal thickening. IMPRESSION: 1. No acute intracranial findings ACT 112: Negative or not required by law. ECG Additional Comments: Study shows sinus tachycardia 118 bpm, normal axis and intervals, no acute ischemic changes Code Status & VTE Plan Code Status DNR VTE Prophylaxis Plan VTE Prophylaxis will be ordered: Yes PG Care Time/CCT Total # of Minutes Spent Total Time Spent with Patient: Total time spent is greater than 50% in coordination of care (as documented) at patient's floor/unit and/or counseling patient: Coding Level of Care Code 04890 Initial Inpt Care Lvl 3 Diagnoses Cough R05 Shortness of breath R06.02 Elevated CK R74.8 Hypertension I10 Hypertension type: essential hypertension Hyperlipidemia E78.5 Hyperlipidemia type: unspecified Stroke I63.9 CVA mechanism: unspecified History of DVT (deep vein thrombosis) Z86.718 (1) Hypertension Hypertension type: essential hypertension Qualified Code(s): I10 - Essential (primary) hypertension (2) Stroke CVA mechanism: unspecified Qualified Code(s): I63.9 - Cerebral infarction, unspecified (3) Hyperlipidemia Hyperlipidemia type: unspecified Qualified Code(s): E78.5 - Hyperlipidemia, unspecified
[2019-04-30] MEDS ORDERED: ONDANSETRON INJ 2 MG/ML 2 ML VIAL IV PRN (12:57)
[2019-04-30] MEDS ORDERED: XOPENEX/ATROVENT 0.63mg/0.5MG NEB COMBO NEB SCH (13:00)
[2019-04-30] MEDS ORDERED: ARTIFICIAL TEARS OP PRN (13:14)
[2019-04-30] MEDS: IPRATROPIUM BROMIDE NEB SOLN 0.02% 2.5 ML VIAL INH SCH ×2 (13:23→19:55)
[2019-04-30] MEDS: LEVALBUTEROL HCL 0.63 MG/3 ML NEB NEB SCH ×2 (13:23→19:55)
[2019-04-30 13:35] LABS: D Dimer 630 ug/L FEU (0-500)
[2019-04-30 14:03] LABS: Magnesium 1.9 mg/dl (1.8-2.4); Phosphorus 2.4 mg/dl (2.5-4.9); Thyroid Stimulating Hormone 0.244 uIu/ml (0.300-4.500)
--- NOTE | 2019-04-30 16:05 | Emergency Department Note ---
Entered by Josette Phillips acting as a scribe for History of Present Illness General Chief complaint: Illness Time Seen by Provider: 04/30/19 08:29 Source: EMS and other (nurse) Mode of arrival: EMS Limitations: no limitations History of Present Illness Provider complaint: Respiratory illness Onset (ago): week(s) (over 1 week) Location: chest Pain Consistency: + other (worsening) Quality: + other (respiratory illness) Relieved By: + none Associated symptoms: + nausea/vomiting and + other (Additional symptoms: hypertension) Treatments prior to arrival: other (Duoneb) The patient is an 88 year old female with a history of a CVA, DVT, hypertension, hyperlipidemia, mastectomy, appendectomy, cholecystectomy, lumbar fusion, hysterectomy, and 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 Per EMS, the patient has been on Prednisone and Albuterol as prescribed by a provider at [facility]. The patient reportedly had an episode of emesis this morning, as well as hypertension. Per nurse, the patient received a Duoneb treatment for her symptoms prior to arrival. Home Medications Home Medications Medication Instructions Recorded Confirmed Type acetaminophen [Tylenol Extra 500 mg PO Q4H PRN MDD 3 GRAMS/24 06/02/18 04/30/19 History Strength] HOURS aspirin [Aspir-81] 81 mg PO DAILY 06/02/18 04/30/19 History cholecalciferol (vitamin D3) 2,000 unit PO DAILY 06/02/18 04/30/19 History [Vitamin D3] diphenhydramine HCl [Allergy 25 - 50 mg PO Q4H PRN MDD 6 06/02/18 04/30/19 History Relief(diphenhydramin)] DOSES/24 HOURS. loperamide [Imodium A-D] 2 mg PO Q3H PRN 06/02/18 04/30/19 History losartan 50 mg PO QAM 06/02/18 04/30/19 History atorvastatin 40 mg tablet 40 mg PO HS #90 tab 09/29/18 04/30/19 Rx acetaminophen 500 mg PO DAILY 04/05/19 04/30/19 History docusate sodium [Stool Softener] 100 mg PO BID PRN 04/05/19 04/30/19 History propylene glycol [Systane Complete] 1 drp OPB QID PRN 04/05/19 04/30/19 History benzonatate 100 mg capsule 200 mg PO TID PRN #180 cap 04/28/19 04/30/19 Rx albuterol sulfate [ProAir HFA] 2 puffs INH QID PRN 04/30/19 04/30/19 History epvsyzryf-QL-ldixdpkt-guaifen 20 ml PO QID 04/30/19 04/30/19 History [Mucinex Cold,Flu,Sore Throat] Allergies Allergy/AdvReac Type Severity Reaction Status Date / Time Penicillins Allergy Unknown Unknown Verified 04/30/19 09:20 Macrolide Antibiotics AdvReac Mild GI Symptoms Verified 04/30/19 09:20 Past Med/Surg History Medical History Carpal tunnel syndrome Carpal tunnel syndrome CVA (cerebral vascular accident) (Inactive) History of DVT (deep vein thrombosis) (Resolved) "Second DVT: November 19, 2016 right posterior tibial vein First DVT: March 11, 2012 extensive thrombus within the greater saphenous vein that extends proximally into the common femoral vein" HTN (hypertension) Hyperlipidemia Lumbosacral disc disease with surgical intervention Normal pressure hydrocephalus (Chronic) Stroke (Resolved) Surgical History H/O mastectomy left side History of appendectomy (Resolved) History of back surgery History of carpal tunnel surgery History of Neuroplasty Decompression Median Nerve At Carpal Tunnel History of cataract surgery History of cholecystectomy History of lumbar fusion History of Lumbar Vertebral Fusion History of mastectomy History of vaginal hysterectomy Hx of cholecystectomy (Resolved) Hx of vaginal hysterectomy (Resolved) 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 and A total of 10 systems reviewed and were otherwise negative Physical Exam Vital Signs Vital Signs - 24 hr 04/30/19 08:40 04/30/19 08:42 04/30/19 08:45 Temperature 37.1 C Temperature Source Oral Pulse Rate 120 H 118 H 117 H Pulse Rate from SpO2 Sensor 123 H 123 H Pulse Rhythm Regular Pulse Strength Normal Respiratory Rate 28 H 19 17 Respiratory Effort / Characteristics Spontaneous Short of Breath Respiratory Depth Normal Respiratory Pattern Tachypnea Blood Pressure 187/110 H 187/110 H 154/96 H Blood Pressure Mean 135 121 110 Blood Pressure Position Sitting Pulse Oximetry 98 96 95 Oxygen Delivery Method Nasal Cannula Oxygen Flow Rate 2 Sepsis Recent Fever Within 48 Hours No Sepsis New/Unexplained Change in Mental Status No Sepsis Action Taken by Nursing No Action Required Oxygen Flow Rate - Titration 2 Pulse Oximetry Post Tiitration 98 04/30/19 09:10 04/30/19 09:47 04/30/19 10:00 Temperature Temperature Source Pulse Rate 108 H 113 H Pulse Rate from SpO2 Sensor 109 H 112 H Pulse Rhythm Pulse Strength Respiratory Rate 20 15 19 Respiratory Effort / Characteristics Non-Labored Spontaneous Respiratory Depth Respiratory Pattern Blood Pressure 152/96 H 153/85 H Blood Pressure Mean 126 105 Blood Pressure Position Pulse Oximetry 99 99 98 Oxygen Delivery Method Nasal Cannula Oxygen Flow Rate 2 Sepsis Recent Fever Within 48 Hours Sepsis New/Unexplained Change in Mental Status Sepsis Action Taken by Nursing Oxygen Flow Rate - Titration Pulse Oximetry Post Tiitration 04/30/19 10:15 04/30/19 10:30 04/30/19 10:45 Temperature Temperature Source Pulse Rate 126 H 123 H 132 H Pulse Rate from SpO2 Sensor 125 H 124 H 131 H Pulse Rhythm Pulse Strength Respiratory Rate 17 26 H 22 Respiratory Effort / Characteristics Respiratory Depth Respiratory Pattern Blood Pressure 129/96 129/92 109/63 Blood Pressure Mean 118 98 76 Blood Pressure Position Pulse Oximetry 90 97 99 Oxygen Delivery Method Oxygen Flow Rate Sepsis Recent Fever Within 48 Hours Sepsis New/Unexplained Change in Mental Status Sepsis Action Taken by Nursing Oxygen Flow Rate - Titration Pulse Oximetry Post Tiitration 04/30/19 11:00 04/30/19 11:15 04/30/19 11:30 Temperature Temperature Source Pulse Rate 139 H 140 H 131 H Pulse Rate from SpO2 Sensor 140 H 141 H 131 H Pulse Rhythm Pulse Strength Respiratory Rate 21 26 H 23 Respiratory Effort / Characteristics Respiratory Depth Respiratory Pattern Blood Pressure 120/72 122/75 110/60 Blood Pressure Mean 93 90 73 Blood Pressure Position Pulse Oximetry 100 93 95 Oxygen Delivery Method Oxygen Flow Rate Sepsis Recent Fever Within 48 Hours Sepsis New/Unexplained Change in Mental Status Sepsis Action Taken by Nursing Oxygen Flow Rate - Titration Pulse Oximetry Post Tiitration GENERAL: Awake, alert, well-appearing, in no acute distress HENT: Normocephalic, atraumatic. Oropharynx unremarkable. EYES: Normal conjunctiva. Sclera non-icteric. NECK: Supple. No nuchal rigidity. FROM. No JVD. RESPIRATORY: Wheezing in all lung warner. CARDIAC: Regular rate, normal rhythm. Extremities warm and well perfused. Pulses equal. ABDOMEN: Soft, non-distended. No tenderness to palpation. No rebound or guarding. No masses. RECTAL: Deferred. MUSCULOSKELETAL: Chest examination reveals no tenderness. The back is symmetrical on inspection without obvious abnormality. There is no CVA tenderness to palpation. No joint edema. LOWER EXTREMITIES: Calves are equal size bilaterally and non-tender. No edema. No discoloration. NEURO: Normal sensorium. No sensory or motor deficits noted. SKIN: No rash or jaundice noted. Course Course 0833: The patient was evaluated in room A12B, and a complete history and physical examination were performed. 0951: I discussed the patient's case with Dr. Avinash Cadena. Dr. Da Silva will evaluate the patient for further management. Consultations Consultation #1: I discussed the patient's case with Dr. Avinash Cadena. Dr. Da Silva will evaluate the patient for further management. Time: 09:51 Administered Medications Ipratropium [place] (Atrovent 0.02% 0.5mg/2.5ml) 0.5 mg INH Q6R [facility] Stop: 05/30/19 12:59 Last Admin: 04/30/19 13:23 Dose: 0.5 mg Documented by: [id number] Levalbuterol HCl (Xopenex 0.63 Mg/3 Ml Neb) 0.63 mg NEB Q6R [facility] Stop: 05/30/19 12:59 Last Admin: 04/30/19 13:23 Dose: 0.63 mg Documented by: [id number] Discontinued Medications Acetaminophen (Tylenol) 1,000 mg PO NOW STA Stop: 04/30/19 09:06 Last Admin: 04/30/19 09:19 Dose: 1,000 mg Documented by: [id number] Albuterol (Duoneb) 12 ml NEB ONE ONE Stop: 04/30/19 08:40 Last Admin: 04/30/19 09:07 Dose: 12 ml Documented by: [id number] Furosemide (Lasix) 40 mg IV NOW STA Stop: 04/30/19 09:55 Last Admin: 04/30/19 10:10 Dose: 40 mg Documented by: [id number] Losartan Potassium (Cozaar) 50 mg PO QAM [facility] Stop: 05/30/19 09:14 Last Admin: 04/30/19 10:26 Dose: 50 mg Documented by: [id number] Methylprednisolone (Solumedrol) 60 mg IV NOW STA Stop: 04/30/19 08:42 Last Admin: 04/30/19 09:19 Dose: 60 mg Documented by: [id number] Medical Decision Making Differential Diagnosis Differential diagnosis includes: cardiac ischemia, aortic dissection, pulmonary embolism, pneumonia, pneumothorax, musculoskeletal, infections, pericarditis, myocarditis, esophageal rupture, gastrointestinal, as well as others were entertained. Medical Records Attestation: I reviewed the patient's medical records. Home Medications Current Medication List: was personally reviewed by me Laboratory Data Attestation: I reviewed the patient's lab results. Result diagrams: 04/30/19 09:00 04/30/19 09:00 Lab Results 04/30/19 04/30/19 04/30/19 Range/Units 08:45 09:00 09:00 WBC 9.74 (4.8-10.8) K/uL RBC 4.83 (4.2-5.4) M/uL Hgb 14.3 (12.0-16.0) g/dL Hct 44.2 (37-47) % MCV 91.5 (80-100) fL MCH 29.6 (25-34) pg MCHC 32.4 (32-36) g/dL RDW Std Deviation 44.0 (36.4-46.3) fL RDW Coeff of [place] 13.1 (11.5-14.5) % Plt Count 229 (130-400) K/uL MPV 9.7 (7.4-10.4) fL Immature Gran % (Auto) 0.2 % Neut % (Auto) 75.4 % Lymph % (Auto) 13.1 % [place] % (Auto) 10.6 % Eos % (Auto) 0.3 % Baso % (Auto) 0.4 % Immature Gran # (Auto) 0.02 (0.00-0.02) K/uL Neut # (Auto) 7.34 H (1.4-6.5) K/uL Lymph # (Auto) 1.28 (1.2-3.4) K/uL [place] # (Auto) 1.03 H (0.11-0.59) K/uL Eos # (Auto) 0.03 (0-0.5) K/uL Baso # (Auto) 0.04 (0-0.2) K/uL PT 10.3 (9.0-12.0) Seconds INR 1.0 (0.9-1.1) APTT 26.7 (21.0-31.0) Seconds PTT Ratio 1.0 Sodium (136-145) mmol/L Potassium (3.5-5.1) mmol/L Chloride (98-107) mmol/L Carbon Dioxide (21-32) mmol/L Anion Gap (3-11) BUN (7-18) mg/dl Creatinine (0.6-1.2) mg/dl Est Cr Clr Drug Dosing ml/min Est GFR ( Amer) Est GFR (Non-Af Amer) BUN/Creatinine Ratio (10-20) Glucose (70-99) mg/dl Calcium (8.5-10.1) mg/dl Total Bilirubin (0.2-1) mg/dl AST (15-37) U/L ALT (12-78) U/L Alkaline Phosphatase (45-117) U/L Total Creatine Kinase (26-192) U/L CK-MB (CK-2) (0.5-3.6) ng/ml CK/CKMB % Calc (0-3.0) Troponin I (0-0.045) ng/ml NT-Pro-B Natriuret Pep (0-1800) pg/ml Total Protein (6.4-8.2) gm/dl Albumin (3.4-5.0) gm/dl Globulin (2.5-4.0) gm/dl Albumin/Globulin Ratio (0.9-2) Lipase (73-393) U/L Influenza Type A (PCR) Neg for Influ A (Neg) Influenza Type B (PCR) Neg for Influ B (Neg) 04/30/19 04/30/19 Range/Units 09:00 09:00 WBC (4.8-10.8) K/uL RBC (4.2-5.4) M/uL Hgb (12.0-16.0) g/dL Hct (37-47) % MCV (80-100) fL MCH (25-34) pg MCHC (32-36) g/dL RDW Std Deviation (36.4-46.3) fL RDW Coeff of [place] (11.5-14.5) % Plt Count (130-400) K/uL MPV (7.4-10.4) fL Immature Gran % (Auto) % Neut % (Auto) % Lymph % (Auto) % [place] % (Auto) % Eos % (Auto) % Baso % (Auto) % Immature Gran # (Auto) (0.00-0.02) K/uL Neut # (Auto) (1.4-6.5) K/uL Lymph # (Auto) (1.2-3.4) K/uL [place] # (Auto) (0.11-0.59) K/uL Eos # (Auto) (0-0.5) K/uL Baso # (Auto) (0-0.2) K/uL PT (9.0-12.0) Seconds INR (0.9-1.1) APTT (21.0-31.0) Seconds PTT Ratio Sodium 134 L (136-145) mmol/L Potassium 4.1 (3.5-5.1) mmol/L Chloride 103 (98-107) mmol/L Carbon Dioxide 25 (21-32) mmol/L Anion Gap 6.0 (3-11) BUN 9 (7-18) mg/dl Creatinine 0.94 (0.6-1.2) mg/dl Est Cr Clr Drug Dosing 44.1 ml/min Est GFR ( Amer) 62.8 Est GFR (Non-Af Amer) 54.2 BUN/Creatinine Ratio 9.9 L (10-20) Glucose 119 H (70-99) mg/dl Calcium 9.1 (8.5-10.1) mg/dl Total Bilirubin 0.8 (0.2-1) mg/dl AST 19 (15-37) U/L ALT 21 (12-78) U/L Alkaline Phosphatase 98 (45-117) U/L Total Creatine Kinase 220 H (26-192) U/L CK-MB (CK-2) 1.8 (0.5-3.6) ng/ml CK/CKMB % Calc 0.8 (0-3.0) Troponin I < 0.015 (0-0.045) ng/ml NT-Pro-B Natriuret Pep 394 (0-1800) pg/ml Total Protein 7.3 (6.4-8.2) gm/dl Albumin 3.7 (3.4-5.0) gm/dl Globulin 3.6 (2.5-4.0) gm/dl Albumin/Globulin Ratio 1.0 (0.9-2) Lipase 108 (73-393) U/L Influenza Type A (PCR) (Neg) Influenza Type B (PCR) (Neg) Imaging Data Radiologist's Impression: Radiology results as stated below per my review and the radiologist's interpretation: XR chest 1V portable CLINICAL HISTORY: 88 years-old Female presenting with Chest Pain. TECHNIQUE: Portable upright AP view of the chest was obtained. COMPARISON: 04/15/2019. FINDINGS: A catheter descends along the right neck and right hemithorax, intact and the visualized portion, coursing towards the abdomen. Atherosclerosis of the aortic arch. Tortuosity of the thoracic aorta. Cardiac silhouette top normal in size. Mildly decreased aeration of the lungs. Increased pulmonary vascular prominence and bilateral hilar prominence, presumably vascular. Of the added density of the lung bases. No focal opacity. No large effusion or pneumothorax. Degenerative changes of the thoracic spine. Degenerative changes of the shoulders. Osteopenia. Cervical fusion hardware. Upper abdomen normal. IMPRESSION: 1. Findings suggest volume overload and mild congestive change. No oliva pulmonary edema. 2. Minimal bibasilar atelectasis suspected. ACT 112: Negative or not required by law. Electronically signed by: Jason Bowling M.D. 04/30/2019 9:[address] head/brain wo con CLINICAL HISTORY: Acute change in mental status COMPARISON STUDY: 09/30/2017 TECHNIQUE: Axial CT of the brain is performed from the vertex to the skull base. IV contrast was not administered for this examination. A dose lowering technique was utilized adhering to the principles of ALARA. CT DOSE: 638.56 mGycm FINDINGS: No intra or extra-axial mass lesions are visualized. There is no CT evidence of acute cortical infarction. There is no evidence of midline shift. There is no acute hemorrhage. No calvarial fractures are visualized. There are patchy white matter hypodensities likely on a small vessel basis. There is no evidence of pathologic ventricular dilatation. There is a right occipital ventriculostomy catheter. The tip terminates adjacent to septum pellucidum. This is unchanged from the prior study. There is a new deep white matter right periventricular infarct which was not present on the prior CT, but was visible on an MRI dated 09/30/2017. There is maxillary ethmoid and sphenoid sinus mucosal thickening. IMPRESSION: 1. No acute intracranial findings ACT 112: Negative or not required by law. Electronically signed by: Kong Burk M.D. 04/30/2019 9:34 AM ECG Data Attestation: I personally reviewed and interpreted this ECG as follows: Indication: + chest pain Rate (beats per minute): 118 Rhythm: + sinus tachycardia ECG Findings: + Other (old septal infarct, QT-c is 445) Blood Pressure Blood Pressure Findings: Elevated blood pressure Blood Pressure Disposition: further management by hospitalist MANDEEP Narrative This is an 88-year-old female who presents emergency department complaining of shortness of breath. Patient is also hypertensive upon arrival to the emergency department. Her chest x-ray is concerning for congestive heart failure therefore a Palmer catheter was placed and the patient was given Lasix. Repeat examination revealed improvement the patient's symptoms. Impression & Plan Acute exacerbation of CHF (congestive heart failure), Hypertension Discharge Plan Visit Data *Final* Discharge Date/Time: 04/30/19 12:32 Chief Complaint: Illness ED Provider: Alo Abel Discharge Problem: Acute exacerbation of CHF (congestive heart failure), Hypertension Patient Disposition: Admitted As Inpatient Discharge Instructions Interventions: ED Discharge Assessment Last Done: 04/30/19 12:32 Discharge Problem: Acute exacerbation of CHF (congestive heart failure) Qualifiers: Heart failure type: unspecified Qualified Code(s): I50.9 - Heart failure, unspecified Hypertension Qualifiers: Hypertension type: unspecified Qualified Code(s): I10 - Essential (primary) hypertension The scribe's documentation has been prepared under my direction and personally reviewed by me in its entirety. I confirm that the note above accurately reflects all work, treatment, procedures, and medical decision making performed by me.
[2019-04-30] MEDS: ACETAMINOPHEN 500 MG TAB PO SCH ×2 (16:09→20:06)
[2019-04-30] MEDS: ENOXAPARIN INJ 30 MG/0.3 ML SYR SQ SCH (16:19)
[2019-04-30] MEDS: methylPREDNISolone 20 MG in SYRINGE 0 ML IV SCH ×2 (16:31→20:05)
[2019-04-30] MEDS ORDERED: ALUMINUM/MAGNESIUM SUSP 30 ML UDC PO PRN (19:18)
[2019-04-30] MEDS ORDERED: CALCIUM CARBONATE 500 MG CHEWABLE TAB PO PRN (19:30)
[2019-04-30] MEDS: BENZONATATE 100 MG CAPSULE PO PRN (20:04)
[2019-04-30] MEDS: guaiFENesin 600 MG TABCR PO SCH (20:05)
[2019-04-30] MEDS: ATORVASTATIN 40 MG TAB PO SCH (20:05)
[2019-04-30] MEDS: ALUMINUM/MAGNESIUM SUSP 30 ML UDC PO PRN (20:05)
[2019-04-30] MEDS ORDERED: OPTIRAY 320 125ml IV PRN (21:09)
--- NOTE | 2019-04-30 21:39 | CT Scan Report ---
CT angio chest PE protocol CT DOSE: 352.42 mGy.cm HISTORY: 88 years-old Female with ?PE, tachycardic/hypoxic/history of prior clots. Acute shortness of breath. History of prior left-sided mastectomy. TECHNIQUE: Multiple CTA images of the chest were obtained after the intravenous administration of 87 ml Optiray 320. Coronal and sagittal MIPS were obtained from the axial data set and were submitted f or review. All measurements were obtained according to NASCET criteria. A dose lowering technique wa s utilized adhering to the principles of ALARA. COMPARISON: Chest radiograph of same day, CTA chest 04/30/2015 FINDINGS: CTA: Moderate cardiomegaly. No pericardial effusion. Mild coronary arterial calcifications. Mild mixed deepa que of the vascular aorta. No thoracic aortic aneurysm or dissection. There is tortuosity of the prox imal left subclavian artery. The pulmonary artery is opacified to the level of the proximal subsegmen john branches and demonstrates no definite filling defects to suggest pulmonary thromboembolic disease . Respiratory motion artifact limits evaluation of the lung bases. CT CHEST: Heterogeneous thyroid with subcentimeter nodules. Calcified left hilar lymph nodes compatible with pr ior granulomatous disease. Prominent subcarinal and right hilar lymph nodes measure up to 8 mm, likel y physiologic. There is no pneumothorax or pleural effusion. Bronchial wall thickening with mild mult ifocal mucus plugging. Mild subsegmental bibasilar atelectasis. There are no suspicious pulmonary nod ules or masses. Air-fluid level of the mid esophagus. No acute process of the imaged upper abdominal structures. Post operative changes of prior left-sided mastectomy. Postoperative changes involve the posterior elbow i s of the upper thoracic spine. No suspicious bone lesions identified. Dextroscoliosis of the midthora cic spine. No acute fracture. IMPRESSION: 1. Limited exam secondary to respiratory motion artifact. 2. Cardiomegaly without acute aortic pathology or evidence of pulmonary thromboembolic disease. 3. Mild bronchial wall thickening suggests reactive airway disease versus bronchitis with mild associ ated mucous plugging. 4. No pleural effusion or airspace consolidation typical for pneumonia. ACT 112: Negative or not required by law. The above report was generated using voice recognition software. It may contain grammatical, syntax o r spelling errors. Electronically signed by: Marquez Davila M.D. 04/30/2019 9:38 PM
--- NOTE | 2019-04-30 21:59 | Electrocardiogram Report ---
Test Reason : Blood Pressure : / mmHG Vent. Rate : 118 BPM Atrial Rate : 118 BPM P-R Int : 168 ms QRS Dur : 082 ms QT Int : 318 ms P-R-T Axes : 063 017 062 degrees QTc Int : 445 ms Sinus tachycardia When compared with ECG of 05-APR-2019 20:32, No significant change was found Confirmed by Wisam Medellin ([id number]) on 04/30/2019 9:58:31 PM Referred By: Confirmed By:Wisam Medellin
[2019-05-01] MEDS: LEVALBUTEROL HCL 0.63 MG/3 ML NEB NEB SCH ×4 (01:03→19:22)
[2019-05-01] MEDS: IPRATROPIUM BROMIDE NEB SOLN 0.02% 2.5 ML VIAL INH SCH ×4 (01:03→19:22)
[2019-05-01] MEDS ORDERED: COUGH DROP (SUGAR FREE) LOZ 24 LOZ/1 BOX BUCCAL STA (01:28)
[2019-05-01] MEDS ORDERED: KETOROLAC TROMETHAMINE 10 MG TABLET PO PRN (02:15)
[2019-05-01] MEDS ORDERED: IBUPROFEN 800 MG TAB PO PRN (02:18)
[2019-05-01 07:24] LABS: Basophils # (auto) 0.02 K/uL (0-0.2); Basophils % (auto) 0.1 %; Hematocrit (blood only) 39.6 % (37-47); Hemoglobin 13.1 g/dL (12.0-16.0); Immature Granulocytes # (auto) 0.02 K/uL (0.00-0.02); Immature Granulocytes % (auto) 0.1 %; Lymphocytes # (auto) 0.96 K/uL (1.2-3.4); Mean Corpuscular Hemoglobin 29.8 pg (25-34); Mean Corpuscular Hgb Conc 33.1 g/dL (32-36); Mean Corpuscular Volume 90.2 fL (80-100); Monocytes # (auto) 1.08 K/uL (0.11-0.59); Monocytes % (auto) 7.9 %; Neutrophils # (auto) 11.64 K/uL (1.4-6.5); Neutrophils % (auto) 84.9 %; Platelet Count 240 K/uL (130-400); RDW Coefficient of Variation 13.1 % (11.5-14.5); Red Blood Count 4.39 M/uL (4.2-5.4); White Blood Count 13.72 K/uL (4.8-10.8)
[2019-05-01 07:53] LABS: BUN Creatinine Ratio 16.5 (10-20); Calcium 8.7 mg/dl (8.5-10.1); Est GFR (Non-African American) 50.9; Potassium 4.2 mmol/L (3.5-5.1)
[2019-05-01] MEDS: guaiFENesin 600 MG TABCR PO SCH ×2 (07:56→20:59)
[2019-05-01] MEDS: methylPREDNISolone 20 MG in SYRINGE 0 ML IV SCH ×2 (07:56→13:39)
[2019-05-01] MEDS: ASPIRIN 81 MG ECTAB PO SCH (07:56)
[2019-05-01] MEDS: LOSARTAN POTASSIUM 50 MG TAB PO SCH (07:56)
[2019-05-01] MEDS: ACETAMINOPHEN 500 MG TAB PO SCH ×3 (07:56→21:00)
[2019-05-01] MEDS: BENZONATATE 100 MG CAPSULE PO PRN (11:16)
[2019-05-01] MEDS: ENOXAPARIN INJ 30 MG/0.3 ML SYR SQ SCH (13:39)
[2019-05-01] MEDS: SODIUM CHLORIDE 0.65% NA SOLN 45 ML (OCEAN) SCH ×2 (14:30→21:01)
--- NOTE | 2019-05-01 14:59 | Hospitalist Progress Note ---
Date of Service May 01, 2019 Assessment & Plan (1) Cough: Ddx includes COPD exacerbation (though no official diagnosis) vs. reactive airway disease/bronchitis. CTA chest on 04/30 showed the bronchitis. - Continue steroids, DuoNebs - Holding abx at this time and the patient is feeling better, so will defer for now. Continue Tessalon Perles & Mucinex (2) Shortness of breath: As above. Suspect reactive airway disease versus COPD. Treatment as above Patient is already scheduled for outpatient PFTs next Friday. I recommended to patient's son that he keep this appointment for now. (3) Elevated CK: Patient with mild elevation of CK. Unknown significance at this time. Viral or steroid-induced myopathy versus medication effects from statin. Repeat CK stable at 230 on 05/01. - I will continue statin given she had a stroke, but it may be contributing mildly to her weakness and fatigue. - Can discuss as outpatient and perhaps retest CK after she is off steroids for at least a few weeks. If still high, may want to lower dose or switch type. (4) Hypertension: Blood pressure high on arrival. Presently 130/80. Continue losartan (5) Hyperlipidemia: Chronic. Continue atorvastatin as above - Discuss with PCP (6) Stroke: Patient with prior stroke with residual left-sided weakness, occasional swelling occurs in her left lower extremity as well. Presently with no acute neurological deficits. Continue aspirin 81 mg p.o. daily Continue atorvastatin 40 mg p.o. nightly. (7) History of DVT (deep vein thrombosis): Noted. No acute evidence of DVT at this time. Lovenox for DVT prophylaxis Admission and Anticipated Discharge Date Admission Date: April 30, 2019 Subjective Dramatically improved today. No major concerns overall. Feels not quite herself and a bit weak. Reports no fevers/chills, chest pain, shortness of breath, abdominal pain, nausea, or vomiting. Physical Exam Constitutional: WD/WN, vitals as above Eyes: EOM intact bilaterally; no conjunctival abnormality ENMT: external ear and nose normal, oropharynx normal Neck: trachea midline, no thyromegaly normal visual inspection Respiratory: normal respiratory effort, lungs clear to auscultation no respiratory distress Auscultation: + wheezes Cardiovascular: RRR, no murmur, no edema Gastrointestinal (Abdomen): Inspection/Auscultation: abdomen normal to inspection; abdomen not distended Musculoskeletal: no cyanosis or clubbing, extremities motor strength 5/5 Skin: no rashes, warm and dry Neurologic: moves all extremities and awake Psychiatric: Orientation: alert, oriented to person and cooperative Results & Data ([facility]) Vital Signs (Past 12 Hours) Vital Signs Temp Pulse Pulse Resp BP Pulse Ox 05/01/19 13:29 102 H 18 96 05/01/19 08:59 99 H 05/01/19 07:40 97 H 18 96 05/01/19 07:37 36.5 C 100 H 16 130/78 92 05/01/19 04:18 36.4 C L 110 H 16 165/92 H 94 PG Care Time/CCT Total # of Minutes Spent Total Time Spent with Patient: Total time spent is greater than 50% in coordination of care (as documented) at patient's floor/unit and/or counseling patient: Coding Level of Care Code 04099 Subseq Hosp Care Lvl 3 Diagnoses Cough R05 Shortness of breath R06.02 Elevated CK R74.8 Hypertension I10 Hypertension type: essential hypertension Hyperlipidemia E78.5 Hyperlipidemia type: unspecified Stroke I63.9 CVA mechanism: unspecified History of DVT (deep vein thrombosis) Z86.718 (1) Hypertension Hypertension type: essential hypertension Qualified Code(s): I10 - Essential (primary) hypertension (2) Hyperlipidemia Hyperlipidemia type: unspecified Qualified Code(s): E78.5 - Hyperlipidemia, unspecified (3) Stroke CVA mechanism: unspecified Qualified Code(s): I63.9 - Cerebral infarction, unspecified
[2019-05-01] MEDS: predniSONE 20 MG TAB PO SCH (17:31)
[2019-05-01] MEDS: ALUMINUM/MAGNESIUM SUSP 30 ML UDC PO PRN (17:31)
[2019-05-01] MEDS: ATORVASTATIN 40 MG TAB PO SCH (20:59)
[2019-05-02] MEDS: IPRATROPIUM BROMIDE NEB SOLN 0.02% 2.5 ML VIAL INH SCH ×4 (01:14→19:51)
[2019-05-02] MEDS: LEVALBUTEROL HCL 0.63 MG/3 ML NEB NEB SCH ×4 (01:14→19:52)
[2019-05-02 07:19] LABS: Hematocrit (blood only) 40.1 % (37-47); Hemoglobin 13.4 g/dL (12.0-16.0); Mean Corpuscular Hgb Conc 33.4 g/dL (32-36); Mean Corpuscular Volume 89.7 fL (80-100); Mean Platelet Volume 9.9 fL (7.4-10.4); Platelet Count 278 K/uL (130-400); RDW Coefficient of Variation 13.2 % (11.5-14.5); RDW Standard Deviation 43.4 fL (36.4-46.3); Red Blood Count 4.47 M/uL (4.2-5.4); White Blood Count 16.05 K/uL (4.8-10.8)
[2019-05-02 07:55] LABS: BUN Creatinine Ratio 25.9 (10-20); Calcium 8.8 mg/dl (8.5-10.1); Creatinine Clr Calc Pharmacy 47.4 ml/min; Est GFR (African American) 65.3; Est GFR (Non-African American) 56.3; Magnesium 2.7 mg/dl (1.8-2.4); Potassium 4.6 mmol/L (3.5-5.1)
[2019-05-02 08:05] LABS: Phosphorus 1.8 mg/dl (2.5-4.9)
[2019-05-02] MEDS ORDERED: SODIUM PHOSPHATE 3 MMOL/1 ML INFUSION IV STA (08:18)
[2019-05-02] MEDS ORDERED: SODIUM PHOSPHATE 9 MMOL in SODIUM CHLORIDE 0.9% 250 ML IV ONE (08:30)
[2019-05-02] MEDS: SODIUM CHLORIDE 0.65% NA SOLN 45 ML (OCEAN) SCH ×3 (09:50→21:11)
[2019-05-02] MEDS: ACETAMINOPHEN 500 MG TAB PO SCH ×2 (09:50→14:07)
[2019-05-02] MEDS: LOSARTAN POTASSIUM 50 MG TAB PO SCH (09:50)
[2019-05-02] MEDS: ASPIRIN 81 MG ECTAB PO SCH (09:50)
[2019-05-02] MEDS: predniSONE 20 MG TAB PO SCH (09:50)
[2019-05-02] MEDS: guaiFENesin 600 MG TABCR PO SCH (09:50)
[2019-05-02] MEDS: BENZONATATE 100 MG CAPSULE PO PRN (11:40)
[2019-05-02] MEDS: ENOXAPARIN INJ 30 MG/0.3 ML SYR SQ SCH (14:07)
--- NOTE | 2019-05-02 14:43 | Hospitalist Progress Note ---
Date of Service May 02, 2019 Assessment & Plan (1) Cough: Ddx includes COPD exacerbation (though no official diagnosis) vs. reactive airway disease/bronchitis. CTA chest on 04/30 showed the bronchitis. - Continue steroids, DuoNebs - Holding abx at this time. Continue Tessalon Perles & Mucinex - On 05/02, the patient reported some extra sputum production. While not necessarily very predictive, I did order a sputum sample. If there is a clear bacteria spc. that grows, could consider adding abx. Will also get AM procalcitonin and CXR. (2) Shortness of breath: As above. Suspect reactive airway disease versus COPD. Treatment as above Patient is already scheduled for outpatient PFTs this Friday. I discussed with the son to postpone by about 1 week to try to get a PFT while she is at her baseline. He was agreeable to this. (3) Elevated CK: Patient with mild elevation of CK. Unknown significance at this time. Viral or steroid-induced myopathy versus medication effects from statin. Repeat CK was stable at 230 on 05/01. - I will continue statin given she had a stroke, but it may be contributing mildly to her weakness and fatigue. - Can discuss as outpatient and perhaps retest CK after she is off steroids for at least a few weeks. If still high, may want to lower dose or switch statin. (4) Hypertension: Blood pressure high on arrival. Presently 135/80. Continue losartan (5) Hyperlipidemia: Chronic. Continue atorvastatin as above - Discuss with PCP (6) Stroke: Patient with prior stroke with residual left-sided weakness, occasional swelling occurs in her left lower extremity as well. Presently with no acute n eurological deficits. Continue aspirin 81 mg p.o. daily Continue atorvastatin 40 mg p.o. nightly. (7) History of DVT (deep vein thrombosis): Noted. No acute evidence of DVT at this time. Lovenox for DVT prophylaxis Admission and Anticipated Discharge Date Admission Date: April 30, 2019 Anticipated date of discharge: 05/03/19 Subjective Not that short of breath, but is still coughing with some mild production. Son walked her and reports she is close to baseline. Reports no fevers/chills, chest pain, shortness of breath, abdominal pain, nausea, or vomiting. Physical Exam Constitutional: WD/WN, vitals as above Eyes: EOM intact bilaterally; no conjunctival abnormality ENMT: external ear and nose normal, oropharynx normal Neck: trachea midline, no thyromegaly normal visual inspection Respiratory: normal respiratory effort, lungs clear to auscultation no respiratory distress Auscultation: + wheezes Cardiovascular: RRR, no murmur, no edema Gastrointestinal (Abdomen): Inspection/Auscultation: abdomen normal to inspection; abdomen not distended Musculoskeletal: no cyanosis or clubbing, extremities motor strength 5/5 Skin: no rashes, warm and dry Neurologic: moves all extremities and awake Psychiatric: Orientation: alert, oriented to person and cooperative Results & Data ([facility]) Vital Signs (Past 12 Hours) Vital Signs Temp Pulse Pulse Resp BP Pulse Ox 05/02/19 13:15 109 H 16 94 05/02/19 11:51 36.7 C 98 H 18 134/85 92 05/02/19 08:50 96 H 05/02/19 07:42 36.9 C 102 H 18 148/83 H 90 05/02/19 07:41 103 H 18 92 05/02/19 03:53 36.3 C L 105 H 19 177/94 H 93 PG Care Time/CCT Total # of Minutes Spent Total Time Spent with Patient: Total time spent is greater than 50% in coordination of care (as documented) at patient's floor/unit and/or counseling patient: Coding Level of Care Code 64280 Subseq Hosp Care Lvl 3 Diagnoses Cough R05 Shortness of breath R06.02 Elevated CK R74.8 Hypertension I10 Hypertension type: essential hypertension Hyperlipidemia E78.5 Hyperlipidemia type: unspecified Stroke I63.9 CVA mechanism: unspecified History of DVT (deep vein thrombosis) Z86.718 (1) Hypertension Hypertension type: essential hypertension Qualified Code(s): I10 - Essential (primary) hypertension (2) Hyperlipidemia Hyperlipidemia type: unspecified Qualified Code(s): E78.5 - Hyperlipidemia, unspecified (3) Stroke CVA mechanism: unspecified Qualified Code(s): I63.9 - Cerebral infarction, unspecified
[2019-05-02] MEDS ORDERED: CHLORASEPTIC 1.4% SOLN 180 ML BTL MT PRN (18:03)
[2019-05-02] MEDS: IBUPROFEN 200 MG TAB PO PRN (18:17)
[2019-05-02] MEDS: GUAIFENESIN/CODEINE 100MG/10MG 5ML UDC PO PRN (18:17)
[2019-05-02] MEDS: ATORVASTATIN 40 MG TAB PO SCH (21:11)
[2019-05-03] MEDS: LEVALBUTEROL HCL 0.63 MG/3 ML NEB NEB SCH ×4 (02:00→19:48)
[2019-05-03] MEDS: IPRATROPIUM BROMIDE NEB SOLN 0.02% 2.5 ML VIAL INH SCH ×4 (02:00→19:48)
[2019-05-03] MEDS: GUAIFENESIN/CODEINE 100MG/10MG 5ML UDC PO PRN ×3 (02:51→21:09)
[2019-05-03] MEDS: BENZONATATE 100 MG CAPSULE PO PRN ×2 (06:22→14:21)
[2019-05-03] MEDS: LOSARTAN POTASSIUM 50 MG TAB PO SCH (06:38)
[2019-05-03 06:56] LABS: Hematocrit (blood only) 41.8 % (37-47); Hemoglobin 13.7 g/dL (12.0-16.0); Mean Corpuscular Hemoglobin 30.2 pg (25-34); Mean Corpuscular Hgb Conc 32.8 g/dL (32-36); Mean Corpuscular Volume 92.1 fL (80-100); Mean Platelet Volume 9.9 fL (7.4-10.4); Platelet Count 315 K/uL (130-400); RDW Coefficient of Variation 13.5 % (11.5-14.5); RDW Standard Deviation 44.9 fL (36.4-46.3); Red Blood Count 4.54 M/uL (4.2-5.4)
[2019-05-03 07:02] LABS: BUN Creatinine Ratio 23.9 (10-20); Calcium 8.6 mg/dl (8.5-10.1); Creatinine Clr Calc Pharmacy 42.5 ml/min; Est GFR (African American) 56.9; Est GFR (Non-African American) 49.1; Magnesium 2.8 mg/dl (1.8-2.4); Potassium 4.5 mmol/L (3.5-5.1)
[2019-05-03 07:07] LABS: Phosphorus 2.5 mg/dl (2.5-4.9)
--- NOTE | 2019-05-03 08:13 | XRay Report ---
XR chest 2V PA/lateral HISTORY: 88 years-old Female Cough acute cough COMPARISON: Chest radiograph and CTA chest 04/30/2019 TECHNIQUE: PA and lateral views of the chest FINDINGS: Cardiomediastinal and hilar silhouettes are within normal limits. Calcified plaque of the thoracic ao rtic arch. A catheter projects along the right chest and right upper abdomen with visualized portions appearing intact. Mild pleural thickening of the lung apices. Hyperinflation. No pneumothorax, pleur al effusion or overt pulmonary edema. Mild chronic interstitial coarsening of the lung bases. Finding s are suggestive of mild emphysema. Degenerative changes of the shoulders and spine. Convex right cur vature of the midthoracic spine. With hardware of the upper thoracic spine. IMPRESSION: No acute process. ACT 112: Negative or not required by law. The above report was generated using voice recognition software. It may contain grammatical, syntax o r spelling errors. Electronically signed by: Marquez Davila M.D. 05/03/2019 8:12 AM
[2019-05-03] MEDS: predniSONE 20 MG TAB PO SCH (08:18)
[2019-05-03] MEDS: ASPIRIN 81 MG ECTAB PO SCH (08:18)
[2019-05-03] MEDS: SODIUM CHLORIDE 0.65% NA SOLN 45 ML (OCEAN) SCH ×3 (08:18→21:08)
[2019-05-03] MEDS ORDERED: AZITHROMYCIN 500 MG in DEXTROSE 5% 250 ML IV ONE (11:09)
[2019-05-03] MEDS: ACETAMINOPHEN 325 MG TAB PO PRN (11:21)
[2019-05-03] MEDS: ENOXAPARIN INJ 30 MG/0.3 ML SYR SQ SCH (13:42)
[2019-05-03] MEDS: ATORVASTATIN 40 MG TAB PO SCH (21:08)
--- NOTE | 2019-05-03 21:26 | Hospitalist Progress Note ---
Date of Service May 03, 2019 Assessment & Plan (1) Cough: Acute Bronchitis likely the cause of cough and dyspnea Concern over possibility of patient having underlying COPD, which is why she will have PFT as an outpatient. Due to this, if patient indeed does have COPD, she would require antibitoics to help her improve. Ddx includes COPD exacerbation (though no official diagnosis) vs. reactive airway disease/bronchitis. CTA chest on 04/30 showed the bronchitis. - Continue steroids, DuoNebs - will institute antibiotics at this time, given question of COPD and sputum production. Continue Tessalon Perles & Mucinex (2) Shortness of breath: As above. Suspect reactive airway disease versus COPD. Treatment as above Patient is already scheduled for outpatient PFTs this Friday. I discussed with the son to postpone by about 1 week to try to get a PFT while she is at her baseline. He was agreeable to this. (3) Elevated CK: Patient with mild elevation of CK. Unknown significance at this time. Viral or steroid-induced myopathy versus medication effects from statin. Repeat CK was stable at 230 on 05/01. - I will continue statin given she had a stroke, but it may be contributing mildly to her weakness and fatigue. - Can discuss as outpatient and perhaps retest CK after she is off steroids for at least a few weeks. If still high, may want to lower dose or switch statin . (4) Hypertension: Blood pressure high on arrival. Presently 135/80. Continue losartan (5) Hyperlipidemia: Chronic. Continue atorvastatin as above - Discuss with PCP (6) Stroke: Patient with prior stroke with residual left-sided weakness, occasional swelling occurs in her left lower extremity as well. Presently with no acute neurological deficits. Continue aspirin 81 mg p.o. daily Continue atorvastatin 40 mg p.o. nightly. (7) History of DVT (deep vein thrombosis): Noted. No acute evidence of DVT at this time. Lovenox for DVT prophylaxis Admission and Anticipated Discharge Date Admission Date: April 30, 2019 Anticipated date of discharge: 05/03/19 Subjective 88 yo female reports no significant changes from yesterday. She is still coughing and having sputum production. Review of Systems Review of Systems: All systems reviewed & are unremarkable except as noted in HPI & below Physical Exam Physical Exam: Constitutional: WD/WN, vitals as above Eyes: EOM intact bilaterally; no conjunctival abnormality ENMT: external ear and nose normal, oropharynx normal Neck: trachea midline, no thyromegaly normal visual inspection Respiratory: normal respiratory effort, lungs clear to auscultation no respiratory distress Auscultation: + wheezes Cardiovascular: RRR, no murmur, no edema Gastrointestinal (Abdomen): Inspection/Auscultation: abdomen normal to inspection; abdomen not distended Musculoskeletal: no cyanosis or clubbing, extremities motor strength 5/5 Skin: no rashes, warm and dry Neurologic: moves all extremities and awake Psychiatric: Orientation: alert, oriented to person and cooperative Results & Data ([facility]) Vital Signs (Past 12 Hours) Vital Signs Temp Pulse Pulse Resp BP Pulse Ox 05/03/19 19:50 98 H 16 93 05/03/19 18:44 36.8 C 106 H 18 153/82 H 95 05/03/19 17:00 106 H 05/03/19 14:50 36.7 C 96 H 20 119/77 92 05/03/19 13:10 68 18 91 05/03/19 11:17 36.6 C 89 20 128/84 90 PG Care Time/CCT Total # of Minutes Spent Total Time Spent with Patient: Total time spent is greater than 50% in coordination of care (as documented) at patient's floor/unit and/or counseling patient: Coding Level of Care Code 61458 Subseq Hosp Care Lvl 3 Diagnoses Cough R05 Shortness of breath R06.02 Elevated CK R74.8 Hypertension I10 Hypertension type: essential hypertension Hyperlipidemia E78.5 Hyperlipidemia type: unspecified Stroke I63.9 CVA mechanism: unspecified History of DVT (deep vein thrombosis) Z86.718 Time Spent (min) 35 (1) Hyperlipidemia Hyperlipidemia type: unspecified Qualified Code(s): E78.5 - Hyperlipidemia, unspecified (2) Hypertension Hypertension type: essential hypertension Qualified Code(s): I10 - Essential (primary) hypertension (3) Stroke CVA mechanism: unspecified Qualified Code(s): I63.9 - Cerebral infarction, unspecified
[2019-05-04] MEDS: IPRATROPIUM BROMIDE NEB SOLN 0.02% 2.5 ML VIAL INH SCH ×4 (02:57→20:28)
[2019-05-04] MEDS: LEVALBUTEROL HCL 0.63 MG/3 ML NEB NEB SCH ×4 (02:58→20:28)
[2019-05-04] MEDS: GUAIFENESIN/CODEINE 100MG/10MG 5ML UDC PO PRN ×2 (03:09→09:37)
[2019-05-04] MEDS: BENZONATATE 100 MG CAPSULE PO PRN (03:14)
[2019-05-04] MEDS: ASPIRIN 81 MG ECTAB PO SCH (07:37)
[2019-05-04] MEDS: predniSONE 20 MG TAB PO SCH (07:37)
[2019-05-04] MEDS: SODIUM CHLORIDE 0.65% NA SOLN 45 ML (OCEAN) SCH ×3 (07:37→20:24)
[2019-05-04] MEDS: LOSARTAN POTASSIUM 50 MG TAB PO SCH (07:37)
[2019-05-04] MEDS ORDERED: AZITHROMYCIN 250 MG TAB PO ONE (13:45)
[2019-05-04] MEDS: DOCUSATE SODIUM 100 MG CAP PO PRN (13:57)
[2019-05-04] MEDS: ENOXAPARIN INJ 40 MG/0.4 ML SYR SQ SCH (17:05)
[2019-05-04] MEDS: ATORVASTATIN 40 MG TAB PO SCH (20:24)
--- NOTE | 2019-05-04 22:30 | Hospitalist Progress Note ---
Date of Service May 04, 2019 Assessment & Plan (1) Cough: Acute Bronchitis likely the cause of cough and dyspnea Concern over possibility of patient having underlying COPD, which is why she will have PFT as an outpatient. Due to this, if patient indeed does have COPD, she would require antibitoics to help her improve. Ddx includes COPD exacerbation (though no official diagnosis) vs. reactive airway disease/bronchitis. CTA chest on 04/30 showed the bronchitis. - Continue steroids, DuoNebs - will institute antibiotics at this time, given question of COPD and sputum production. Continue Tessalon Perles & Mucinex -Sputum culture now growing moraxella catarhalis. Patient continues to have sputum production. -Will try to obtain sensitivities. -Plan initially was to discharge today however patient continues to be symptomatic. -will hold for another day. (2) Shortness of breath: As above. Suspect reactive airway disease versus COPD. Treatment as above Patient is already scheduled for outpatient PFTs this Friday. I discussed wi th the son to postpone by about 1 week to try to get a PFT while she is at her baseline. He was agreeable to this. (3) Elevated CK: Patient with mild elevation of CK. Unknown significance at this time. Viral or steroid-induced myopathy versus medication effects from statin. Repeat CK was stable at 230 on 05/01. - I will continue statin given she had a stroke, but it may be contributing mildly to her weakness and fatigue. - Can discuss as outpatient and perhaps retest CK after she is off steroids for at least a few weeks. If still high, may want to lower dose or switch statin. (4) Hypertension: Blood pressure high on arrival. Presently 135/80. Continue losartan (5) Hyperlipidemia: Chronic. Continue atorvastatin as above - Discuss with PCP (6) Stroke: Patient with prior stroke with residual left-sided weakness, occasional swelling occurs in her left lower extremity as well. Presently with no acute neurological deficits. Continue aspirin 81 mg p.o. daily Continue atorvastatin 40 mg p.o. nightly. (7) History of DVT (deep vein thrombosis): Noted. No acute evidence of DVT at this time. Lovenox for DVT prophylaxis Admission and Anticipated Discharge Date Admission Date: April 30, 2019 Anticipated date of discharge: 05/03/19 Subjective Patient reports that she continues to be coughing up sputum. Patient continues to be SOB at rest as well. Review of Systems Review of Systems: All systems reviewed & are unremarkable except as noted in HPI & below Physical Exam Physical Exam: Constitutional: WD/WN, vitals as above Eyes: EOM intact bilaterally; no conjunctival abnormality ENMT: external ear and nose normal, oropharynx normal Neck: trachea midline, no thyromegaly normal visual inspection Respiratory: normal respiratory effort, lungs clear to auscultation no respiratory distress Auscultation: + wheezes Cardiovascular: RRR, no murmur, no edema Gastrointestinal (Abdomen): Inspection/Auscultation: abdomen normal to inspection; abdomen not distended Musculoskeletal: no cyanosis or clubbing, extremities motor strength 5/5 Skin: no rashes, warm and dry Neurologic: moves all extremities and awake Psychiatric: Orientation: alert, oriented to person and cooperative Results & Data ([facility]) Vital Signs (Past 12 Hours) Vital Signs Temp Pulse Pulse Resp BP Pulse Ox 05/04/19 20:28 92 H 16 96 05/04/19 20:17 36.6 C 107 H 16 143/94 H 92 05/04/19 15:43 36.7 C 94 H 21 144/83 H 91 05/04/19 15:40 105 H 05/04/19 13:26 100 H 22 92 05/04/19 11:08 37.2 C 88 18 136/79 90 PG Care Time/CCT Total # of Minutes Spent Total Time Spent with Patient: Total time spent is greater than 50% in coordination of care (as documented) at patient's floor/unit and/or counseling patient: Coding Level of Care Code 46912 Subseq Hosp Care Lvl 3 Diagnoses Cough R05 Shortness of breath R06.02 Elevated CK R74.8 Hypertension I10 Hypertension type: essential hypertension Hyperlipidemia E78.5 Hyperlipidemia type: unspecified Stroke I63.9 CVA mechanism: unspecified History of DVT (deep vein thrombosis) Z86.718 Time Spent (min) 35 (1) Hyperlipidemia Hyperlipidemia type: unspecified Qualified Code(s): E78.5 - Hyperlipidemia, unspecified (2) Hypertension Hypertension type: essential hypertension Qualified Code(s): I10 - Essential (primary) hypertension (3) Stroke CVA mechanism: unspecified Qualified Code(s): I63.9 - Cerebral infarction, unspecified
[2019-05-05] MEDS: GUAIFENESIN/CODEINE 100MG/10MG 5ML UDC PO PRN (00:02)
[2019-05-05] MEDS: LEVALBUTEROL HCL 0.63 MG/3 ML NEB NEB SCH ×4 (00:50→19:50)
[2019-05-05] MEDS: IPRATROPIUM BROMIDE NEB SOLN 0.02% 2.5 ML VIAL INH SCH ×3 (00:51→13:09)
[2019-05-05] MEDS: LOSARTAN POTASSIUM 50 MG TAB PO SCH (08:13)
[2019-05-05] MEDS: SODIUM CHLORIDE 0.65% NA SOLN 45 ML (OCEAN) SCH ×3 (08:13→20:36)
[2019-05-05] MEDS: ASPIRIN 81 MG ECTAB PO SCH (08:13)
[2019-05-05] MEDS: predniSONE 20 MG TAB PO SCH (08:13)
[2019-05-05 09:00] LABS: Basophils # (auto) 0.01 K/uL (0-0.2); Basophils % (auto) 0.1 %; Eosinophils # (auto) 0.15 K/uL (0-0.5); Eosinophils % (auto) 1.5 %; Hematocrit (blood only) 41.3 % (37-47); Hemoglobin 13.6 g/dL (12.0-16.0); Immature Granulocytes # (auto) 0.04 K/uL (0.00-0.02); Immature Granulocytes % (auto) 0.4 %; Lymphocytes # (auto) 3.27 K/uL (1.2-3.4); Lymphocytes % (auto) 32.6 %; Mean Corpuscular Hemoglobin 29.8 pg (25-34); Mean Corpuscular Hgb Conc 32.9 g/dL (32-36); Mean Corpuscular Volume 90.6 fL (80-100); Mean Platelet Volume 9.5 fL (7.4-10.4); Monocytes # (auto) 0.99 K/uL (0.11-0.59); Monocytes % (auto) 9.9 %; Neutrophils # (auto) 5.58 K/uL (1.4-6.5); Neutrophils % (auto) 55.5 %; Platelet Count 277 K/uL (130-400); RDW Coefficient of Variation 13.2 % (11.5-14.5); RDW Standard Deviation 43.6 fL (36.4-46.3); Red Blood Count 4.56 M/uL (4.2-5.4); White Blood Count 10.04 K/uL (4.8-10.8)
[2019-05-05 09:37] LABS: BUN Creatinine Ratio 21.7 (10-20); Calcium 9.4 mg/dl (8.5-10.1); Creatinine Clr Calc Pharmacy 47.4 ml/min; Est GFR (African American) 65.3; Est GFR (Non-African American) 56.3
[2019-05-05] MEDS: AZITHROMYCIN 250 MG TAB PO SCH (11:32)
[2019-05-05] MEDS: ENOXAPARIN INJ 40 MG/0.4 ML SYR SQ SCH (14:43)
[2019-05-05] MEDS: DOCUSATE SODIUM 100 MG CAP PO PRN (14:48)
--- NOTE | 2019-05-05 15:09 | XRay Report ---
XR chest 2V PA/lateral CLINICAL HISTORY: hypoxia COMPARISON STUDY: 05/03/2019 FINDINGS: There is pulmonary emphysema. Postsurgical changes are present within the cervical spine. T here is a thoracic dextroscoliosis. There is no failure. There is no lobar consolidation. There is mi nor left basilar atelectasis.[A thin catheter courses across the right hemithorax medially. IMPRESSION: 1. Emphysema with minor left basilar atelectatic changes. No evidence of failure. No evidence of foca l pulmonary consolidation. ACT 112: Negative or not required by law. Electronically signed by: Kong Burk M.D. 05/05/2019 3:08 PM
[2019-05-05] MEDS: ACETAMINOPHEN 325 MG TAB PO PRN (16:24)
[2019-05-05] MEDS: ATORVASTATIN 40 MG TAB PO SCH (20:34)
[2019-05-05] MEDS ORDERED: FLUTICASONE/VILANTEROL 100/25MCG 14 PUFFS/INHALER INH SCH (21:00)
--- NOTE | 2019-05-05 21:56 | Hospitalist Progress Note ---
Date of Service May 05, 2019 Assessment & Plan (1) Cough: Acute Bronchitis likely the cause of cough and dyspnea Concern over possibility of patient having underlying COPD, which is why she will have PFT as an outpatient. Due to this, if patient indeed does have COPD, she would require antibitoics to help her improve. Ddx includes COPD exacerbation (though no official diagnosis) vs. reactive airway disease/bronchitis. CTA chest on 04/30 showed the bronchitis. - Continue steroids, DuoNebs - will institute antibiotics at this time, given question of COPD and sputum production. Continue Tessalon Perles & Mucinex -Sputum culture now growing moraxella catarhalis. Patient continues to have sputum production. -Will try to obtain sensitivities. -Given her lack of improvement, and likely hold this this is an acute on chronic problem, will place patient on long acting beta agonist with steroid. -It appears that there may also be evidence of Emphysema on x-ray. However, patient still requires a pulmonary function test to fully assess possible diagnosis. Daughter in law at bedside and she is updated. -Will taper oral steroid. (2) Shortness of breath: As above. Suspect reactive airway disease versus COPD. Treatment as above PFT has been postponed. (3) Elevated CK: Patient with mild elevation of CK. Unknown significance at this time. Viral or steroid-induced myopathy versus medication effects from statin. Repeat CK was stable at 230 on 05/01. - I will continue statin given she had a stroke, but it may be contributing mildly to her weakness and fatigue. - Can discuss as outpatient and perhaps retest CK after she is off steroids for at least a few weeks. If still high, may want to lower dose or switch statin. (4) Hypertension: Blood pressure high on arrival. Presently 135/80. Continue losartan (5) Hyperlipidemia: Chronic. Continue atorvastatin as above - Discuss with PCP (6) Stroke: Patient with prior stroke with residual left-sided weakness, occasional swelling occurs in her left lower extremity as well. Presently with no acute neurological deficits. Continue aspirin 81 mg p.o. daily Continue atorvastatin 40 mg p.o. nightly. (7) History of DVT (deep vein thrombosis): Noted. No acute evidence of DVT at this time. Lovenox for DVT prophylaxis Admission and Anticipated Discharge Date Admission Date: April 30, 2019 Anticipated date of discharge: 05/06/19 Subjective Patient appears to be breathing better today. Patient continues to have sputum production, but this has decreased, Review of Systems Review of Systems: All systems reviewed & are unremarkable except as noted in HPI & below Physical Exam Physical Exam: Constitutional: WD/WN, vitals as above Eyes: EOM intact bilaterally; no conjunctival abnormality ENMT: external ear and nose normal, oropharynx normal Neck: trachea midline, no thyromegaly normal visual inspection Respiratory: normal respiratory effort, lungs clear to auscultation no respiratory distress Auscultation: + wheezes Cardiovascular: RRR, no murmur, no edema Gastrointestinal (Abdomen): Inspection/Auscultation: abdomen normal to inspection; abdomen not distended Musculoskeletal: no cyanosis or clubbing, extremities motor strength 5/5 Skin: no rashes, warm and dry Neurologic: moves all extremities and awake Psychiatric: Orientation: alert, oriented to person and cooperative Results & Data ([facility]) Vital Signs (Past 12 Hours) Vital Signs Temp Pulse Pulse Resp BP Pulse Ox 05/05/19 19:50 87 16 93 05/05/19 19:00 36.8 C 97 H 18 135/83 94 05/05/19 16:49 105 H 05/05/19 14:53 37.5 C 104 H 18 114/73 95 05/05/19 13:10 77 19 96 05/05/19 11:48 36.4 C L 101 H 22 124/79 95 05/05/19 11:33 95 PG Care Time/CCT Total # of Minutes Spent Total Time Spent with Patient: Total time spent is greater than 50% in coordination of care (as documented) at patient's floor/unit and/or counseling patient: Coding Level of Care Code 46298 Subseq Hosp Care Lvl 3 Diagnoses Cough R05 Shortness of breath R06.02 Elevated CK R74.8 Hypertension I10 Hypertension type: essential hypertension Hyperlipidemia E78.5 Hyperlipidemia type: unspecified Stroke I63.9 CVA mechanism: unspecified History of DVT (deep vein thrombosis) Z86.718 Time Spent (min) 35 (1) Hyperlipidemia Hyperlipidemia type: unspecified Qualified Code(s): E78.5 - Hyperlipidemia, unspecified (2) Hypertension Hypertension type: essential hypertension Qualified Code(s): I10 - Essential (primary) hypertension (3) Stroke CVA mechanism: unspecified Qualified Code(s): I63.9 - Cerebral infarction, unspecified
[2019-05-06] MEDS: LEVALBUTEROL HCL 0.63 MG/3 ML NEB NEB SCH ×2 (01:23→07:08)
[2019-05-06] MEDS: SODIUM CHLORIDE 0.65% NA SOLN 45 ML (OCEAN) SCH ×2 (08:07→12:16)
[2019-05-06] MEDS: LOSARTAN POTASSIUM 50 MG TAB PO SCH (08:07)
[2019-05-06] MEDS: ASPIRIN 81 MG ECTAB PO SCH (08:07)
[2019-05-06] MEDS: IBUPROFEN 200 MG TAB PO PRN (08:07)
[2019-05-06] MEDS: DOCUSATE SODIUM 100 MG CAP PO PRN (08:08)
[2019-05-06] MEDS ORDERED: LEVALBUTEROL HCL 0.63 MG/3 ML NEB NEB PRN (08:54)
[2019-05-06] MEDS ORDERED: predniSONE 20 MG TAB PO SCH (09:00)
[2019-05-06] MEDS: ENOXAPARIN INJ 40 MG/0.4 ML SYR SQ SCH (12:16)
[2019-05-06] MEDS: AZITHROMYCIN 250 MG TAB PO SCH (12:16)
--- NOTE | 2019-05-07 11:29 | Discharge Summary ---
Date of Service May 06, 2019 Admission HPI Per Admitting Provider Stefanie Lozada is a pleasant 88-year-old female with history of hypertension/hyperlipidemia/prior DVT x2, prior CVA with residual left-sided weakness. She presents today from her [place] [facility] with complaints of shortness of breath and headache. The patient was seen in the ER 3 weeks ago with left shoulder pain and hypertension. She had a negative troponin, shoulder x-ray and EKG at that time. She was discharged home in stable condition. Approximately 10 days ago she developed cough/cold symptoms and mild shortness of breath. She was seen by her PCP on 04/15/2019 and given inhaler and prednisone taper per patient's son. She took his medications with slight improvement in her symptoms. She was seen again by her PCP on 04/28/2019. She had a negative flu at that visit. She was prescribed Symbicort and Tessalon Perles. Son states that her Symbicort was denied by insurance therefore, she has not yet taken this medication. PFTs were ordered by primary physician and are scheduled for 05/04/2019. She presents today with worsening cough over the last week. It is constant, dry with occasional clear sputum. She has severe dyspnea on exertion and decreased exercise tolerance as well as occasional dizziness with ambulation. Denies chest pain/palpitations. Denies orthopnea/weight gain/edema. Denies fever/chills/sweats/purulent sputum. She has had poor sleep for the last week due to her cough. Last night she developed a severe headache over her right eye. Her blood pressure was reportedly in the 220s at her [place] [facility]. ER course: Tylenol, albuterol, Lasix, losartan, Solu-Medrol Principal Diagnosis acute bronchitis Discharge Exam Constitutional: WD/WN, vitals as above Eyes: EOM intact bilaterally; no conjunctival abnormality ENMT: external ear and nose normal, oropharynx normal Neck: trachea midline, no thyromegaly normal visual inspection Respiratory: normal respiratory effort, lungs clear to auscultation no respiratory distress Auscultation: + wheezes Cardiovascular: RRR, no murmur, no edema Gastrointestinal (Abdomen): Inspection/Auscultation: abdomen normal to inspection; abdomen not distended Musculoskeletal: no cyanosis or clubbing, extremities motor strength 5/5 Skin: no rashes, warm and dry Neurologic: moves all extremities and awake Psychiatric: Orientation: alert, oriented to person and cooperative Discharge Data Allergies Allergy/AdvReac Type Severity Reaction Status Date / Time Penicillins Allergy Unknown Unknown Verified 04/30/19 09:20 Macrolide Antibiotics AdvReac Mild GI Symptoms Verified 04/30/19 09:20 Consultations 04/30/19 09:54 ED Decision to Admit Stat Ordered Studies 04/30/19 09:05 CT head/brain wo con Stat 04/30/19 13:37 CT angio chest PE protocol Urgent Hospital Course (1) Cough: Patient was admitted with SOB at rest and a productive cough. D/W family it appears that patient has been SOB for months, but this episode of coughing has made it worse. In the outpatient setting, there was concern that she may have had COPD and was scheduled to have a PFT as an outpatient. She was started on antibiotics for possibility of a COPD exaceration vs bronchitis. CTA chest on 04/30 showed the bronchitis. - She was treated steroids, DuoNebs, and azithromycyin. -Sputum culture grew moraxella catarhalis. -Will try to obtain sensitivities. -Added long acting beta agonist with Inhaled steroid -Given her lack of improvement, and likely hold this this is an acute on chronic problem, -will place patient on long acting beta agonist with steroid. -It appears that there may also be evidence of Emphysema on x-ray. However, patient still requires a pulmonary function test to fully assess possible diagnosis. -she improved on day of discharge, and will complete azithromycin course (5 day total treatment) and will have PFT as an outpatient. (2) Shortness of breath: As above. Suspect reactive airway disease versus COPD. Treatment as above PFT has been postponed. (3) Elevated CK: Patient with mild elevation of CK. Unknown significance at this time. Viral or steroid-induced myopathy versus medication effects from statin. Repeat CK was stable at 230 on 05/01. - I will continue statin given she had a stroke, but it may be contributing mildly to her weakness and fatigue. - Can discuss as outpatient and perhaps retest CK after she is off steroids for at least a few weeks. If still high, may want to lower dose or switch statin. (4) Hypertension: Blood pressure high on arrival. Presently 135/80. Continue losartan (5) Hyperlipidemia: Chronic. Continue atorvastatin as above - Discuss with PCP (6) Stroke: Patient with prior stroke with residual left-sided weakness, occasional swelling occurs in her left lower extremity as well. Presently with no acute neurological deficits. Continue aspirin 81 mg p.o. daily Continue atorvastatin 40 mg p.o. nightly. (7) History of DVT (deep vein thrombosis): Noted. No acute evidence of DVT at this time. Lovenox for DVT prophylaxis Total Time Total Time Spent Total Time Spent (In Minutes): 35 Total Time Includes: Examination of the Patient, Discharge Planning and Medication Reconciliation Discharge Plan Discharge Items Patient Disposition: [facility] Reason For Visit: SOB, COPD Discharge Diagnosis: Possibe COPD exacerbation Activity: Resume your previous activity Non-emergency contact: Primary Care Provider Call non-emergency contact if: you have any medication questions Follow-up/Referrals: Chilo Wen MD [Primary Care Provider] - 05/11/19 1:00 pm (If you need to reschedule this appointment, please call either [phone] or [phone]. You will be seeing Mindi Rios.) Shannan Carlson MD [Physician] - 05/07/19 1:00 pm (Please, follow up at [facility] Pulmonology Office with Dr. Carlson on FridayMay 07 at 1:00 pm. *The office is located in [address] of [facility], next to this hospital. If you need to change this appointment, call the office at [phone].) Diet: Heart Healthy Addtl Attending Provider Instructions: You have been hospitalized for an acute medical problem. During your stay at [facility], we have made an effort to correct the problem that brought you to the hospital while keeping you as comfortable as possible. Medications were used to bring your condition under control and your discharge instructions will include directions for any medications you should take after leaving the hospital. Please make sure you see your Primary Care Provider as part of your follow up plan. PCP followup in 1-2 weeks Will inform PCP to: Retest CK after she is off steroids for at least a few weeks. Azithromycin will be for 2 days And prednisone for 4 days. Pending Studies at Discharge: No Stand-Alone Forms: [facility], Smoking Cessation Skilled Items Patient informed of condition?: No DNR: Yes (DNR/DNI) Discharge Level of Care: Other Communicable Disease: No Discharge Prognosis: Stable Lines: None Urinary Catheter: No Medications and DC Order Prescriptions: New azithromycin 250 mg tablet 250 mg PO DAILY 2 Days Qty: 2 RF: 0 prednisone 10 mg tablet 10 mg PO DAILY Qty: 6 RF: 0 Breo Ellipta 100-25 mcg/dose Blister With Device 1 puff inhalation QPM Qty: 1 RF: 0 Continued atorvastatin 40 mg tablet 40 mg PO HS Qty: 90 RF: 3 benzonatate [Tessalon Perles] 100 mg capsule 200 mg PO TID PRN (Reason: cough) Qty: 180 RF: 6 losartan 50 mg Tablet 50 mg PO QAM RF: 0 loperamide [Imodium A-D] 2 mg Tablet 2 mg PO Q3H PRN (Reason: Diarrhea) RF: 0 aspirin [Aspir-81] 81 mg Tablet,Delayed Release (Dr/Ec) 81 mg PO DAILY RF: 0 acetaminophen [Tylenol Extra Strength] 500 mg Tablet 500 mg PO Q4H MDD 3 GRAMS/24 HOURS PRN (Reason: Fever Or Pain) RF: 0 diphenhydramine HCl [Allergy Relief(diphenhydramin)] 25 mg Tablet 25 - 50 mg PO Q4H MDD 6 DOSES/24 HOURS. PRN (Reason: Allergy Symptoms) RF: 0 cholecalciferol (vitamin D3) [Vitamin D3] 2,000 unit Capsule 2,000 unit PO DAILY RF: 0 acetaminophen 500 mg Tablet 500 mg PO DAILY RF: 0 docusate sodium [Stool Softener] 100 mg Capsule 100 mg PO BID PRN (Reason: Constipation) RF: 0 Systane Complete 0.6 % Drops 1 drp OPB QID PRN (Reason: Dry Eye(S)) RF: 0 Mucinex Cold,Flu,Sore Throat 10-20-650 mg/20 mL Liquid 20 ml PO QID RF: 0 albuterol sulfate [ProAir HFA] 90 mcg/actuation HFA aerosol inhaler 2 puffs INH QID PRN (Reason: Shortness Of Breath Or Wheezing) RF: 0 Discharge Orders: Discharge Order (Routine); Ordered 05/06/19 Ordered By: David Grimes Admission Data Admit Date/Time: 04/30/19 11:34 Attending Provider: Saborio,David A Admit Provider: Paola Andrade Primary Care Provider: Chilo Wen Other Providers: Rock Connelly Other Interventions: Discharge Summary Assessment (RN) Last Done: 05/06/19 14:44 DC Date/Time DO NOT enter until pt leaves facility: 05/06/19 15:51 Coding Level of Care Code D/C Day Management >30 mins Diagnoses Cough R05 Shortness of breath R06.02 Elevated CK R74.8 Hypertension I10 Hypertension type: essential hypertension Hyperlipidemia E78.5 Hyperlipidemia type: unspecified Stroke I63.9 CVA mechanism: unspecified History of DVT (deep vein thrombosis) Z86.718 Time Spent (min) 35
== END 2019-05-06 15:51 | disposition home or self-care (01) | DRG 202 ==
LOC: ED 08:26 → SUATTDRO 11:34 → 2N 11:34

== ENCOUNTER 2019-11-11 22:13 | Inpatient (IN) ==
[2019-11-11] MEDS ORDERED: LABETALOL HCL IV 5 MG/ML 20ML IV STA (22:22)
--- NOTE | 2019-11-11 22:29 | Emergency Department Note ---
History of Present Illness General Chief complaint: Dizziness Time Seen by Provider: 11/11/19 22:14 Source: patient and EMS Mode of arrival: EMS History of Present Illness Provider complaint: Dizziness Onset (ago): day(s) Location: head Severity: moderate Pain Consistency: + intermittent Quality: + other (Lightheaded and vertigo) Exacerbated By: + movement Associated symptoms: + headaches; no chest pain, no cough, no fever/chills, no nausea/vomiting and no shortness of breath Treatments prior to arrival: none This is an 89-year-old female presents with dizziness throughout the day. The patient states it has been intermittent. She has felt lightheaded with some mild vertigo. Prior to arrival the patient felt significant vertigo while trying to walk with her walker. This caused her to fall onto her left side hurting her left hip and shoulder. She does not believe she hit her head. She has no neck pain. She is does state that she has a headache to the back of her head. Currently she feels slightly dizzy. She has never had vertigo in the past. She denies any hearing loss or tinnitus. She has had no fevers, vo miting, chest pain, shortness of breath, abdominal pain, diarrhea or urinary symptoms. She has had no known COVID-19 exposure and had a negative test 2 weeks ago. She denies any new numbness or weakness in her extremities. She did have a stroke years ago and states that she normally has left-sided weakness and incoordination. She does take aspirin but does not think she has any other blood thinners. She also takes her blood pressure medications regularly. She denies any change in her vision, swallowing or difficulty with her speech or cognition. Home Medications Home Medications Medication Instructions Recorded Confirmed Type acetaminophen [Tylenol Extra 500 mg PO Q4H PRN MDD 3 GRAMS/24 06/02/18 11/11/19 History Strength] HOURS aspirin [Aspir-81] 81 mg PO DAILY 06/02/18 11/11/19 History diphenhydramine HCl [Allergy 25 - 50 mg PO Q4H PRN MDD 6 06/02/18 11/11/19 History Relief(diphenhydramin)] DOSES/24 HOURS. loperamide [Imodium A-D] 2 mg PO Q3H PRN 06/02/18 11/11/19 History acetaminophen 500 mg PO DAILY 04/05/19 11/11/19 History docusate sodium [Stool Softener] 100 mg PO BID PRN 04/05/19 11/11/19 History benzonatate 100 mg capsule 200 mg PO TID PRN #180 cap 04/28/19 11/11/19 Rx Mucinex Cold,Flu,Sore Throat 20 ml PO QID PRN 04/30/19 11/11/19 History albuterol sulfate [ProAir HFA] 2 puffs INH QID PRN 04/30/19 11/11/19 History losartan 50 mg tablet 50 mg PO QAM #90 tab 05/11/19 11/11/19 Rx diclofenac sodium 1 % topical gel 4 gm TOP QID PRN #100 gm 06/30/19 11/11/19 Rx atorvastatin 40 mg tablet 40 mg PO HS #90 tab 08/24/19 11/11/19 Rx fluticasone furoate-vilanterol 1 inh INHALATION QDL 11/11/19 11/11/19 History [Breo Ellipta] propylene glycol [Systane Complete] 1 drp OPHTHALMIC (EYE) Q4H PRN MDD 11/11/19 11/11/19 History 5 DOSES/24 HOURS. Allergies Allergy/AdvReac Type Severity Reaction Status Date / Time levofloxacin [From Levaquin] Allergy Unknown Unknown Verified 11/11/19 22:56 Penicillins Allergy Unknown Unknown Verified 11/11/19 22:56 Sulfa (Sulfonamide Allergy Unknown Unknown Verified 11/11/19 22:56 Antibiotics) Macrolide Antibiotics AdvReac Mild GI Symptoms Verified 11/11/19 22:56 Past Med/Surg History Medical History C. difficile colitis (2016) Carpal tunnel syndrome Carpal tunnel syndrome CVA (cerebral vascular accident) (09/2017) H/O carcinoma in situ of skin History of DVT (deep vein thrombosis) "Second DVT: November 19, 2016 right posterior tibial vein First DVT: March 11, 2012 extensive thrombus within the greater saphenous vein that extends proximally into the common femoral vein" HTN (hypertension) Hx of breast cancer Hyperlipidemia Lumbosacral disc disease with surgical intervention Normal pressure hydrocephalus Osteoporosis with fracture Stroke (09/2017) Unilateral recurrent inguinal hernia without obstruction or gangrene Surgical History H/O mastectomy left side History of appendectomy History of back surgery History of carpal tunnel surgery History of Neuroplasty Decompression Median Nerve At Carpal Tunnel History of cataract surgery History of lumbar fusion History of Lumbar Vertebral Fusion History of mastectomy History of vaginal hysterectomy Hx of cholecystectomy Hx of vaginal hysterectomy S/P B2B SALES PROFESSIONAL shunt (11/2015) Family History Family/Other Breast cancer Mother Tuberculosis Father Stroke Other Lung disease Social History Smoking Status: Never smoker Hx Alcohol Use: No Hx Substance Use: No Preferred Language: Ivorian Communication Ability: Effective [employer] Required: No Beliefs That Will Affect Care: None marital status: Current Living Situation: Group Home Current Living Situation Comment: [facility] current occupational status: retired Feels Safe at Home: Yes Review of Systems See HPI for pertinent positives & negatives. and A total of 10 systems reviewed and were otherwise negative Physical Exam Vital Signs Vital Signs - 24 hr 11/11/19 22:25 11/11/19 23:05 11/11/19 23:10 Temperature 36.7 C Temperature Source Oral Pulse Rate 105 H 92 H 94 H Pulse Rate from SpO2 Sensor 91 H 94 H Respiratory Rate 18 18 18 Blood Pressure 222/137 H 163/93 H 158/127 H Blood Pressure Mean 165 132 130 Pulse Oximetry 96 96 97 Oxygen Delivery Method Room Air Sepsis Recent Fever Within 48 Hours No Sepsis New/Unexplained Change in Mental Status N/A Sepsis Action Taken by Nursing No Action Required 11/11/19 23:31 11/11/19 23:40 11/11/19 23:50 Temperature Temperature Source Pulse Rate 89 90 90 Pulse Rate from SpO2 Sensor 89 89 90 Respiratory Rate 18 18 18 Blood Pressure 153/84 H 150/99 H 142/99 H Blood Pressure Mean 111 121 121 Pulse Oximetry 96 96 95 Oxygen Delivery Method Sepsis Recent Fever Within 48 Hours Sepsis New/Unexplained Change in Mental Status Sepsis Action Taken by Nursing 11/12/19 00:00 Temperature Temperature Source Pulse Rate 92 H Pulse Rate from SpO2 Sensor 91 H Respiratory Rate 18 Blood Pressure 140/94 Blood Pressure Mean 114 Pulse Oximetry 93 Oxygen Delivery Method Sepsis Recent Fever Within 48 Hours Sepsis New/Unexplained Change in Mental Status Sepsis Action Taken by Nursing Constitutional: Vital signs reviewed. Eyes: Pupils are equal round reactive to light. Conjunctiva are noninjected. ENT: Pharynx is clear without erythema or exudate. Mucous membranes are moist. Neck supple without meningeal signs. No midline tenderness to cervical spine. Respiratory: Clear to auscultation bilaterally. Breath sounds are equal bilaterally. Cardiovascular: Regular rate and rhythm. No rubs or gallops. GI: Soft, nondistended and nontender. Bowel sounds are present. Musculoskeletal: No peripheral edema. Mild tenderness to left hip without shortening. No tenderness to the left shoulder. Integumentary: No cyanosis. or jaundice. Neurologic: The patient is awake and alert. Cranial nerves II-XII are intact. Motor is 5 out of 5 on the right side. She has 4/5 strength on the left side. Sensation is intact to light touch all extremities. Normal speech. Left pronator drift. Limb ataxia involving the left hand and leg. Psychiatric: Normal affect. Not anxious appearing. Course Administered Medications Discontinued Medications Labetalol HCl (Labetalol Hcl Iv 5 Mg/Ml 20ml) 10 mg IV NOW STA Stop: 11/11/19 22:23 Last Admin: 11/11/19 22:44 Dose: 10 mg Documented by: [id number] Cosigned by: [id number] Meclizine HCl (Meclizine Hcl 25 Mg Tab) 25 mg PO NOW STA Stop: 11/11/19 22:57 Last Admin: 11/11/19 23:27 Dose: 25 mg Documented by: [id number] Medical Decision Making Differential Diagnosis CVA, intracranial hemorrhage, intracranial mass, BPPV, TIA, labyrinthitis, metabolic derangement Medical Records Attestation: I reviewed the patient's medical records. 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 Home Medications Current Medication List: was personally reviewed by me Laboratory Data Attestation: I reviewed the patient's lab results. Result diagrams: 11/11/19 22:29 11/11/19 22:29 Lab Results 11/11/19 11/11/19 11/11/19 Range/Units 22:29 22:29 22:29 WBC 7.39 (4.8-10.8) K/uL RBC 4.81 (4.2-5.4) M/uL Hgb 14.4 (12.0-16.0) g/dL Hct 43.1 (37-47) % MCV 89.6 (80-100) fL MCH 29.9 (25-34) pg MCHC 33.4 (32-36) g/dL RDW Std Deviation 43.7 (36.4-46.3) fL RDW Coeff of Mariluz 13.2 (11.5-14.5) % Plt Count 265 (130-400) K/uL MPV 9.7 (7.4-10.4) fL Immature Gran % (Auto) 0.3 % Neut % (Auto) 57.9 % Lymph % (Auto) 26.0 % [place] % (Auto) 11.4 % Eos % (Auto) 4.1 % Baso % (Auto) 0.3 % Neut # (Auto) 4.29 (1.4-6.5) K/uL Lymph # (Auto) 1.92 (1.2-3.4) K/uL [place] # (Auto) 0.84 H (0.11-0.59) K/uL Eos # (Auto) 0.30 (0-0.5) K/uL Baso # (Auto) 0.02 (0-0.2) K/uL Immature Gran # (Auto) 0.02 (0.00-0.02) K/uL PT 10.1 (9.0-12.0) Seconds INR 1.0 (0.9-1.1) APTT 24.8 (21.0-31.0) Seconds PTT Ratio 0.9 Sodium (136-145) mmol/L Potassium (3.5-5.1) mmol/L Chloride (98-107) mmol/L Carbon Dioxide (21-32) mmol/L Anion Gap (3-11) BUN (7-18) mg/dl Creatinine (0.6-1.2) mg/dl Est Cr Clr Drug Dosing ml/min Est GFR ( Amer) Est GFR (Non-Af Amer) BUN/Creatinine Ratio (10-20) Glucose (70-99) mg/dl Calcium (8.5-10.1) mg/dl Magnesium (1.8-2.4) mg/dl Total Bilirubin (0.2-1) mg/dl AST (15-37) U/L ALT (12-78) U/L Alkaline Phosphatase (45-117) U/L Troponin I (0-0.045) ng/ml Total Protein (6.4-8.2) gm/dl Albumin (3.4-5.0) gm/dl Globulin (2.5-4.0) gm/dl Albumin/Globulin Ratio (0.9-2) Urine Color Urine Appearance (Clear) Urine pH (4.5-7.5) Ur Specific [place] (1.000-1.030) Urine Protein (Negative) Urine Glucose (UA) (Negative) Urine Ketones (Negative) Urine Blood (Negative) Urine Nitrite (Negative) Urine Bilirubin (Negative) Urine Urobilinogen (Negative) Ur Leukocyte Esterase (Negative) Urine WBC (Auto) (0-5) /hpf Urine RBC (Auto) (0-4) /hpf U Hyaline Cast (Auto) (0-5) /lpf U Epithel Cells (Auto) (0-5) /lpf Urine Bacteria (Auto) (Negative) Blood Type A Positive Antibody Screen NEGATIVE 11/11/19 11/11/19 Range/Units 22:29 23:27 WBC (4.8-10.8) K/uL RBC (4.2-5.4) M/uL Hgb (12.0-16.0) g/dL Hct (37-47) % MCV (80-100) fL MCH (25-34) pg MCHC (32-36) g/dL RDW Std Deviation (36.4-46.3) fL RDW Coeff of Mariluz (11.5-14.5) % Plt Count (130-400) K/uL MPV (7.4-10.4) fL Immature Gran % (Auto) % Neut % (Auto) % Lymph % (Auto) % [place] % (Auto) % Eos % (Auto) % Baso % (Auto) % Neut # (Auto) (1.4-6.5) K/uL Lymph # (Auto) (1.2-3.4) K/uL [place] # (Auto) (0.11-0.59) K/uL Eos # (Auto) (0-0.5) K/uL Baso # (Auto) (0-0.2) K/uL Immature Gran # (Auto) (0.00-0.02) K/uL PT (9.0-12.0) Seconds INR (0.9-1.1) APTT (21.0-31.0) Seconds PTT Ratio Sodium 138 (136-145) mmol/L Potassium 4.3 (3.5-5.1) mmol/L Chloride 106 (98-107) mmol/L Carbon Dioxide 26 (21-32) mmol/L Anion Gap 6.0 (3-11) BUN 18 (7-18) mg/dl Creatinine 1.02 (0.6-1.2) mg/dl Est Cr Clr Drug Dosing 44.6 ml/min Est GFR ( Amer) 56.5 Est GFR (Non-Af Amer) 48.7 BUN/Creatinine Ratio 17.5 (10-20) Glucose 97 (70-99) mg/dl Calcium 9.9 (8.5-10.1) mg/dl Magnesium 2.1 (1.8-2.4) mg/dl Total Bilirubin 0.4 (0.2-1) mg/dl AST 19 (15-37) U/L ALT 18 (12-78) U/L Alkaline Phosphatase 111 (45-117) U/L Troponin I < 0.015 (0-0.045) ng/ml Total Protein 7.2 (6.4-8.2) gm/dl Albumin 3.9 (3.4-5.0) gm/dl Globulin 3.3 (2.5-4.0) gm/dl Albumin/Globulin Ratio 1.2 (0.9-2) Urine Color Yellow Urine Appearance Clear (Clear) Urine pH 7.0 (4.5-7.5) Ur Specific [place] 1.012 (1.000-1.030) Urine Protein Trace H (Negative) Urine Glucose (UA) Negative (Negative) Urine Ketones Negative (Negative) Urine Blood Negative (Negative) Urine Nitrite Negative (Negative) Urine Bilirubin Negative (Negative) Urine Urobilinogen Negative (Negative) Ur Leukocyte Esterase Negative (Negative) Urine WBC (Auto) 1-5 (0-5) /hpf Urine RBC (Auto) 0-4 (0-4) /hpf U Hyaline Cast (Auto) 0 (0-5) /lpf U Epithel Cells (Auto) 5-10 H (0-5) /lpf Urine Bacteria (Auto) Negative (Negative) Blood Type Antibody Screen Imaging Data Attestation: I personally reviewed and interpreted this imaging study as follows: My Impression: Chest x-ray per my interpretation shows no acute cardiopulmonary process. Left hip and pelvis x-rays per my interpretation shows no evidence of fracture or dislocation. Radiologist's Impression: CT HEAD: Impression: No intracranial hemorrhage or evidence of acute large territorial infarction. Right parietal approach ventriculostomy appears stable in position compared to CT head. Ventricular system appears stable compared to prior examination. Global parenchymal volume loss with chronic microvascular ischemic changes. Bilateral lens replacement. Air-fluid level in the left sphenoid sinus. Recommend correlation for symptoms. Radiologist: Shda Smith MD Study ready at 22:58 and initial results transmitted at 23:06 ECG Data Attestation: I personally reviewed and interpreted this ECG as follows: Indication: + other (Dizziness) Rate (beats per minute): 103 Rhythm: + sinus tachycardia ECG Intervals/blocks: + First degree AV block ECG ST segments: no ST elevation ECG Findings: no PVCs Blood Pressure Blood Pressure Findings: Elevated blood pressure Blood Pressure Disposition: Referred to patients primary care provider MDM Narrative I did evaluate the patient as noted above. I did obtain history from the patient as well as EMS. IV access was established. I did place an order for continuous cardiac monitoring. The monitor showed normal sinus rhythm rhythm rate of 99. I did order and personally review the patient's 12-lead EKG as described above. She has sinus tachycardia without acute ischemia. I did order and personally reviewed the images of the patient's chest/left hip/pelvis x-rays as described above. There is no evidence of acute cardiopulmonary process. There is no evidence of acute fracture dislocation. I did order a urine analysis. I did order and review the patient's blood work as noted in the electronic medical record. She has no leukocytosis or anemia. Electrolytes are unremarkable. Troponin is within normal limits. I did order a CT of the head. I did review the images myself as well as the radiology report as described above. There is no evidence of acute stroke or hemorrhage. I did treat the patient with Antivert. She is still symptomatic. She was given labetalol 10 mg IV for her severe blood pressure. Her blood pressure came down to 158/127. I did discuss the test results with the patient and her son. I did recommend hospitalization for further care and evaluation. The case was discussed with the hospitalist and piano case maker. Impression & Plan Vertigo, Fall, Contusion of hip, left, Hypertensive emergency Discharge Plan Visit Data Chief Complaint: Dizziness ED Provider: Avinash Edwards Discharge Problem: Vertigo, Fall, Contusion of hip, left, Hypertensive emergency Patient Disposition: Being Evaluated by Hospitalist Forms Stand Alone Forms: My [facility] Prescriptions Prescriptions: No Action losartan 50 mg tablet 50 mg PO QAM Qty: 90 RF: 3 diclofenac sodium [Voltaren] 1 % gel 4 gm TOP QID PRN (Reason: ankle pain) Qty: 100 RF: 3 atorvastatin 40 mg tablet 40 mg PO HS Qty: 90 RF: 3 benzonatate [Tessalon Perles] 100 mg capsule 200 mg PO TID PRN (Reason: cough) Qty: 180 RF: 6 Systane Complete 0.6 % Drops 1 drp OPHTHALMIC (EYE) Q4H MDD 5 DOSES/24 HOURS. PRN (Reason: Dry Eyes) RF: 0 Breo Ellipta 100-25 mcg/dose blister with device 1 inh inhalation QDL RF: 0 loperamide [Imodium A-D] 2 mg Tablet 2 mg PO Q3H PRN (Reason: Diarrhea) RF: 0 aspirin [Aspir-81] 81 mg Tablet,Delayed Release (Dr/Ec) 81 mg PO DAILY RF: 0 acetaminophen [Tylenol Extra Strength] 500 mg Tablet 500 mg PO Q4H MDD 3 GRAMS/24 HOURS PRN (Reason: Fever Or Pain) RF: 0 diphenhydramine HCl [Allergy Relief(diphenhydramin)] 25 mg Tablet 25 - 50 mg PO Q4H MDD 6 DOSES/24 HOURS. PRN (Reason: Allergy Symptoms) RF: 0 acetaminophen 500 mg Tablet 500 mg PO DAILY RF: 0 docusate sodium [Stool Softener] 100 mg Capsule 100 mg PO BID PRN (Reason: Constipation) RF: 0 Mucinex Cold,Flu,Sore Throat 10-20-650 mg/20 mL Liquid 20 ml PO QID PRN (Reason: Cold Symptoms) RF: 0 albuterol sulfate [ProAir HFA] 90 mcg/actuation HFA aerosol inhaler 2 puffs INH QID PRN (Reason: Shortness Of Breath Or Wheezing) RF: 0 Referrals Referrals: Chilo Wen MD [Primary Care Provider] - Discharge Problem: Fall Qualifiers: Encounter type: initial encounter Qualified Code(s): W19.XXXA - Unspecified fall, initial encounter Contusion of hip, left Qualifiers: Encounter type: initial encounter Qualified Code(s): S70.02XA - Contusion of left hip, initial encounter
[2019-11-11 22:36] LABS: Basophils # (auto) 0.02 K/uL (0-0.2); Basophils % (auto) 0.3 %; Eosinophils % (auto) 4.1 %; Hematocrit (blood only) 43.1 % (37-47); Hemoglobin 14.4 g/dL (12.0-16.0); Immature Granulocytes # (auto) 0.02 K/uL (0.00-0.02); Immature Granulocytes % (auto) 0.3 %; Lymphocytes # (auto) 1.92 K/uL (1.2-3.4); Mean Corpuscular Hemoglobin 29.9 pg (25-34); Mean Corpuscular Hgb Conc 33.4 g/dL (32-36); Mean Corpuscular Volume 89.6 fL (80-100); Mean Platelet Volume 9.7 fL (7.4-10.4); Monocytes # (auto) 0.84 K/uL (0.11-0.59); Monocytes % (auto) 11.4 %; Neutrophils # (auto) 4.29 K/uL (1.4-6.5); Neutrophils % (auto) 57.9 %; Platelet Count 265 K/uL (130-400); RDW Coefficient of Variation 13.2 % (11.5-14.5); RDW Standard Deviation 43.7 fL (36.4-46.3); Red Blood Count 4.81 M/uL (4.2-5.4); White Blood Count 7.39 K/uL (4.8-10.8)
[2019-11-11 22:49] LABS: Partial Thromboplastin Ratio 0.9; Partial Thromboplastin Time 24.8 Seconds (21.0-31.0); Prothrombin Time 10.1 Seconds (9.0-12.0)
[2019-11-11] MEDS ORDERED: MECLIZINE HCL 25 MG TAB PO STA (22:56)
[2019-11-11 23:03] LABS: Alanine Aminotransferase 18 U/L (12-78); Albumin Level 3.9 gm/dl (3.4-5.0); Aspartate Aminotransferase 19 U/L (15-37); BUN Creatinine Ratio 17.5 (10-20); Blood Urea Nitrogen 18 mg/dl (7-18); Calcium 9.9 mg/dl (8.5-10.1); Carbon Dioxide 26 mmol/L (21-32); Chloride 106 mmol/L (98-107); Creatinine Clr Calc Pharmacy 44.6 ml/min; Est GFR (African American) 56.5; Est GFR (Non-African American) 48.7; Glucose 97 mg/dl (70-99); Magnesium 2.1 mg/dl (1.8-2.4); Potassium 4.3 mmol/L (3.5-5.1); Sodium 138 mmol/L (136-145)
[2019-11-11 23:07] LABS: Albumin Globulin Ratio 1.2 (0.9-2); Alkaline Phosphatase 111 U/L (45-117); Bilirubin,Total 0.4 mg/dl (0.2-1); Globulin 3.3 gm/dl (2.5-4.0); Total Protein 7.2 gm/dl (6.4-8.2); Troponin I < 0.015 ng/ml (0-0.045)
[2019-11-11 23:38] LABS: Appearance Urine Clear (Clear); Bacteria Urine Automated Negative (Negative); Bilirubin Urine Negative (Negative); Blood Urine Negative (Negative); Cast Urine Automated 0 /lpf (0-5); Color Urine Yellow; Glucose Urine UA Negative (Negative); Ketones Urine Negative (Negative); Leukocyte Esterase Urine Negative (Negative); Nitrite Urine Negative (Negative); Protein Urine Trace (Negative); RBC Urine Automated 0-4 /hpf (0-4); Specific Gravity Urine 1.012 (1.000-1.030); Urobilinogen Urine Negative (Negative)
--- NOTE | 2019-11-12 00:47 | History & Physical Report ---
Date of Service November 12, 2019 Assessment & Plan (1) Fall: Caveat: History Limited by - Patient is a vague historian. Stefanie Lozada is a 89 y/o female with history of hypertension/hyperlipidemia/prior DVT x2, prior CVA with residual left-sided weakness, normal pressure hydrocephalus post BP shunt, who presented to [facility] for Fall. - In the ED, she was HTN 222/137 which was treated with Labetalol 10mg IV x 1 and now is 140/94. She had a CT Head with no signs of acute bleed, CXR with NAD, Left hip xray without signs of fracture. Labs were otherwise unremarkable, not on anticoagulation. - ED staff noted left sided drift and weakness on exam. I didn't appreciate any significant neuro findings s/p ED treatment. - Only significant reported complaint was dizziness. Unsure if dizziness was caused by stroke (or now now a TIA) or if from vertigo like BPPV or if elevated BP was causing symptoms of HTN urgency. - Will provide TIA/stroke w/o TPA workup, utilizing order set nursing protocols for neuro checks overnight. - No complaints of dysphagia, once passes screening then may have diet. - CTA of Neck ordered, defer to day time for MRI considerations. - Monitor BP, concern that acute drop if having acute stroke would lead to worse perfusion, but now without symptoms, will still monitor. - Neurology consulted, notes she doesn't currently follow with any neurologist. - Notes poor PO intake today, will give gentle hydration with 500cc NSS at 80ml/hr x 1 bag since has been NPO and getting IV contrast. - She is on home ASA 81mg, states she took all medications. - c/w home statin atorvastatin 40mg PO HS DVT ppx: SCDs FENGI: once passes screening then diet heart healthy, 500cc NSS at 80ml/hr x 1 bag. Dispo: Obs, med/surg tele Code: DNR/DNI (2) Contusion of hip, left: await radiology interpretation no obvious signs of fracture per my review not complaining of pain currently, do not feel current need to CT as no current complaints (3) Hypertensive emergency: now currently resolved unsure etiology if from acute brain ischemia at time that now appears resolved per symptoms improvement; vs. from stress of vertigo vs. uncontrolled HTN. Only on ARB for HTN control - continue with home med Losartan 50mg po QAM given Labetalol 10mg IV in ED, now 135/92 at 01:00 (4) Hypertension: noted in hx (5) History of DVT (deep vein thrombosis): noted in hx, not in anti-coagulation SCDs here (6) S/P [facility] [facility] shunt: noted in hx, she notes she is safe to get MRI if needed. History of Present Illness Chief Complaint: Dizziness Primary Care Provider: Morgan Wen MD Caveat: History Limited by - Patient is a vague historian. Stefanie Lozada is a 89 y/o female with history of hypertension/hyperlipidemia/prior DVT x2, prior CVA with residual left-sided weakness, normal pressure hydrocephalus post BP shunt, who presented to [facility] ED for Fall. She does not remember why she was in her bedroom or what she was doing prior to fall. She notes that she was in bedroom and became dizziness and fell. She notes she pounded on the bedroom wall in order to get noticed for rescue. She does not recall hitting her head and she is unsure if she had any loss of consciousness. She notes she has left shoulder pain and fell onto her left side. She notes she was afraid to get off the ground because of dizziness. She states currently she has no dizziness when interviewed in ED, but is afraid to sitting up or getting up might cause it to return. She notes she felt dizziness intermittently throughout the day yesterday and denies any dizziness day before, but she cannot recall events of day prior. She notes she takes home medications as directed but cannot recall the names "or what they do." She states she lives in assisted living. She cannot recall if she's had dizziness like this before. She cannot recall if she went from sitting to standing with dizziness or if felt light headed or like she was going to pass out. She did note that dizziness "felt like I was gonna fall out of the bed." She noted though that she wasn't in bed or doesn't think she was in bed prior. In the ED, she was HTN 222/137 which was treated with Labetalol 10mg IV x 1 and now is 140/94. She had a CT Head with no signs of acute bleed, CXR with NAD, Left hip xray without signs of fracture. ED staff noted left sided drift and weakness on exam. Labs were otherwise unremarkable, not on anticoagulation. Allergies Allergy/AdvReac Type Severity Reaction Status Date / Time levofloxacin [From Levaquin] Allergy Unknown Unknown Verified 11/11/19 22:56 Penicillins Allergy Unknown Unknown Verified 11/11/19 22:56 Sulfa (Sulfonamide Allergy Unknown Unknown Verified 11/11/19 22:56 Antibiotics) Macrolide Antibiotics AdvReac Mild GI Symptoms Verified 11/11/19 22:56 Home Medications Home Medications Medication Instructions Recorded Confirmed Type acetaminophen [Tylenol Extra 500 mg PO Q4H PRN MDD 3 GRAMS/06/02/18 11/11/19 History Strength] HOURS aspirin [Aspir-81] 81 mg PO DAILY 06/02/18 11/11/19 History diphenhydramine HCl [Allergy 25 - 50 mg PO Q4H PRN MDD 6 06/02/18 11/11/19 History Relief(diphenhydramin)] DOSES/24 HOURS. loperamide [Imodium A-D] 2 mg PO Q3H PRN 06/02/18 11/11/19 History acetaminophen 500 mg PO DAILY 04/05/19 11/11/19 History docusate sodium [Stool Softener] 100 mg PO BID PRN 04/05/19 11/11/19 History benzonatate 100 mg capsule 200 mg PO TID PRN #180 cap 04/28/19 11/11/19 Rx Mucinex Cold,Flu,Sore Throat 20 ml PO QID PRN 04/30/19 11/11/19 History albuterol sulfate [ProAir HFA] 2 puffs INH QID PRN 04/30/19 11/11/19 History losartan 50 mg tablet 50 mg PO QAM #90 tab 05/11/19 11/11/19 Rx diclofenac sodium 1 % topical gel 4 gm TOP QID PRN #100 gm 06/30/19 11/11/19 Rx atorvastatin 40 mg tablet 40 mg PO HS #90 tab 08/24/19 11/11/19 Rx fluticasone furoate-vilanterol 1 inh INHALATION QDL 11/11/19 11/11/19 History [Breo Ellipta] propylene glycol [Systane Complete] 1 drp OPHTHALMIC (EYE) Q4H PRN MDD 11/11/19 11/11/19 History 5 DOSES/24 HOURS. Past Med/Surg History Medical History C. difficile colitis (2015) Carpal tunnel syndrome Carpal tunnel syndrome CVA (cerebral vascular accident) (09/2017) H/O carcinoma in situ of skin History of DVT (deep vein thrombosis) "Second DVT: November 19, 2016 right posterior tibial vein First DVT: March 11, 2012 extensive thrombus within the greater saphenous vein that extends proximally into the common femoral vein" HTN (hypertension) Hx of breast cancer Hyperlipidemia Lumbosacral disc disease with surgical intervention Normal pressure hydrocephalus Osteoporosis with fracture Stroke (09/2017) Unilateral recurrent inguinal hernia without obstruction or gangrene Surgical History H/O mastectomy left side History of appendectomy History of back surgery History of carpal tunnel surgery History of Neuroplasty Decompression Median Nerve At Carpal Tunnel History of cataract surgery History of lumbar fusion History of Lumbar Vertebral Fusion History of mastectomy History of vaginal hysterectomy Hx of cholecystectomy Hx of vaginal hysterectomy S/P [employer] [facility] [facility] shunt (11/2015) Family History Family/Other Breast cancer Mother Tuberculosis Father Stroke Other Lung disease Social History Smoking Status: Never smoker Hx Alcohol Use: No Hx Substance Use: No Preferred Language: Sinhala Communication Ability: Effective Care Analyst Required: No Beliefs That Will Affect Care: None marital status: Current Living Situation: Personal Care Facility [facility] occupational status: retired Feels Safe at Home: Yes Review of Systems Review of Systems: All systems reviewed & are unremarkable except as noted in HPI & below Constitutional: no fever and no chills Eyes: no diplopia and no spots in vision Ear, Nose, Mouth, Throat: no nasal congestion, no nasal obstruction and no epistaxis Respiratory: no cough and no dyspnea Cardiovascular: no chest pain and no palpitations Gastrointestinal: no abdominal pain, no nausea and no vomiting Genitourinary: no dysuria and no urinary frequency Musculoskeletal: as per Subjective / HPI; no back pain and no deformity Integumentary: no rash and no lesions Neurologic: as per Subjective / HPI Physical Exam Constitutional: WD/WN, vitals as above cooperative and comfortable Eyes: PERRL, conjunctivae normal, anicteric sclerae ENMT: external ear and nose normal, oropharynx normal Neck: normal visual inspection and trachea midline Respiratory: normal respiratory effort, lungs clear to auscultation Cardiovascular: Rate/Rhythm: regular rate and regular rhythm Extremities: + edema (1+ pitting bl) Gastrointestinal (Abdomen): Percussion/Palpation: abdomen soft; abdomen nontender, no guarding and abdomen not rigid Musculoskeletal: Head/Neck/Chest: normocephalic and head atraumatic Shoulder: no deformity and no joint line tenderness Hip: no deformity and no joint line tenderness Knee: no deformity and no joint line tenderness Ankle: no deformity and no joint line tenderness (ankle) Skin: no rashes, warm and dry Neurologic: CN's II-XI intact bilaterally, moves all extremities and awake; no focal motor deficits Speech / Cognition: normal speech Motor/Sensory: no pronator drift Cranial Nerves: EOM intact bilaterally and tongue midline hx of left residual but strength appeared without significant weakness to extremities was symmetric and there was no pronator drift Psychiatric: A+Ox3, euthymic affect Had difficulty trying to remember exact date; unable to recall recent events, cannot recall events of yesterday. Results & Data Results & Data ([facility]) Vital Signs (Past 12 Hours) Vital Signs Temp Pulse Resp BP Pulse Ox 11/12/19 00:00 92 H 18 140/94 93 11/11/19 23:50 90 18 142/99 H 95 11/11/19 23:40 90 18 150/99 H 96 11/11/19 23:31 89 18 153/84 H 96 11/11/19 23:10 94 H 18 158/127 H 97 11/11/19 23:05 92 H 18 163/93 H 96 11/11/19 22:25 36.7 C 105 H 18 222/137 H 96 Laboratory Results Laboratory Results - last 24 hr 11/11/19 11/11/19 11/11/19 22:29 22:29 22:29 WBC 7.39 RBC 4.81 Hgb 14.4 Hct 43.1 MCV 89.6 MCH 29.9 MCHC 33.4 RDW Std Deviation 43.7 RDW Coeff of Mariluz 13.2 Plt Count 265 MPV 9.7 Immature Gran % (Auto) 0.3 Neut % (Auto) 57.9 Lymph % (Auto) 26.0 [place] % (Auto) 11.4 Eos % (Auto) 4.1 Baso % (Auto) 0.3 Neut # (Auto) 4.29 Lymph # (Auto) 1.92 [place] # (Auto) 0.84 H Eos # (Auto) 0.30 Baso # (Auto) 0.02 Immature Gran # (Auto) 0.02 PT 10.1 INR 1.0 APTT 24.8 PTT Ratio 0.9 Sodium Potassium Chloride Carbon Dioxide Anion Gap BUN Creatinine Est Cr Clr Drug Dosing Est GFR ( Amer) Est GFR (Non-Af Amer) BUN/Creatinine Ratio Glucose Calcium Magnesium Total Bilirubin AST ALT Alkaline Phosphatase Troponin I Total Protein Albumin Globulin Albumin/Globulin Ratio Urine Color Urine Appearance Urine pH Ur Specific [place] Urine Protein Urine Glucose (UA) Urine Ketones Urine Blood Urine Nitrite Urine Bilirubin Urine Urobilinogen Ur Leukocyte Esterase Urine WBC (Auto) Urine RBC (Auto) U Hyaline Cast (Auto) U Epithel Cells (Auto) Urine Bacteria (Auto) Blood Type A Positive Antibody Screen NEGATIVE 11/11/19 11/11/19 22:29 23:27 WBC RBC Hgb Hct MCV MCH MCHC RDW Std Deviation RDW Coeff of [place] Plt Count MPV Immature Gran % (Auto) Neut % (Auto) Lymph % (Auto) [place] % (Auto) Eos % (Auto) Baso % (Auto) Neut # (Auto) Lymph # (Auto) [place] # (Auto) Eos # (Auto) Baso # (Auto) Immature Gran # (Auto) PT INR APTT PTT Ratio Sodium 138 Potassium 4.3 Chloride 106 Carbon Dioxide 26 Anion Gap 6.0 BUN 18 Creatinine 1.02 Est Cr Clr Drug Dosing 44.6 Est GFR ( Amer) 56.5 Est GFR (Non-Af Amer) 48.7 BUN/Creatinine Ratio 17.5 Glucose 97 Calcium 9.9 Magnesium 2.1 Total Bilirubin 0.4 AST 19 ALT 18 Alkaline Phosphatase 111 Troponin I < 0.015 Total Protein 7.2 Albumin 3.9 Globulin 3.3 Albumin/Globulin Ratio 1.2 Urine Color Yellow Urine Appearance Clear Urine pH 7.0 Ur Specific [place] 1.012 Urine Protein Trace H Urine Glucose (UA) Negative Urine Ketones Negative Urine Blood Negative Urine Nitrite Negative Urine Bilirubin Negative Urine Urobilinogen Negative Ur Leukocyte Esterase Negative Urine WBC (Auto) 1-5 Urine RBC (Auto) 0-4 U Hyaline Cast (Auto) 0 U Epithel Cells (Auto) 5-10 H Urine Bacteria (Auto) Negative Blood Type Antibody Screen Code Status & VTE Plan Code Status DNR/DNI VTE Prophylaxis Plan VTE Prophylaxis will be ordered: Yes Supervising Physician Co-Signing Physician Notes Attending addendum: I have physically seen this patient, have supervised the medical residents activities, and agree with the H&P unless as otherwise noted. Assessment and Plan: Generalized weakness/status post fall/H&P limited by dementia- Patient will be admitted under the ischemic stroke without TPA protocol order set. CT head shows right parietal ventriculostomy/[employer] [facility] [facility] shunt Ordered CTA head and neck. We will consult neurology, and determination can be made regarding MRI and history of ventriculostomy. Continue aspirin and statin as directed. Permissive hypertension Remaining orders and notations as noted. Resident Activity Tracking Resident Involvement: Resident Care Provided Care Provided: Adult Hospital Medicine (1) Hypertension Hypertension type: essential hypertension Qualified Code(s): I10 - Essential (primary) hypertension (2) Fall Encounter type: initial encounter Qualified Code(s): W19.XXXA - Unspecified fall, initial encounter (3) Contusion of hip, left Encounter type: initial encounter Qualified Code(s): S70.02XA - Contusion of left hip, initial encounter
[2019-11-12] MEDS ORDERED: PHARMACIST DISCHARGE MED REC CONSULT PRN (01:46)
[2019-11-12] MEDS ORDERED: DOCUSATE SODIUM 100 MG CAP PO PRN (01:46)
[2019-11-12] MEDS ORDERED: ONDANSETRON INJ 2 MG/ML 2 ML VIAL IV PRN (01:46)
[2019-11-12] MEDS ORDERED: SODIUM CHLORIDE 0.9% 500 ML IV SCH (01:46)
[2019-11-12] MEDS: ACETAMINOPHEN 325 MG TAB PO PRN ×2 (04:07→08:25)
--- NOTE | 2019-11-12 06:30 | CT Scan Report ---
CT OF THE HEAD WITHOUT CONTRAST CLINICAL HISTORY: Vertigo. Evaluate for stroke. COMPARISON STUDY: Head CT April 30, 2019. CT DOSE: 614.27 mGy.cm TECHNIQUE: Helical axial images of the head were obtained without IV contrast. Automated exposure con trol was utilized for the study. A dose lowering technique was utilized adhering to the principles o f ALARA. FINDINGS: No acute intracranial hemorrhage, midline shift or mass effect is present. A right parietal ventriculostomy catheter is unchanged in position since CT of April 30, 2019. Ventricular system is stable. Basilar cisterns are patent. There are no extra axial collections. White matter hypodensit y suggests small vessel disease. There are no findings to suggest acute dural sinus thrombosis or acu te territorial infarct. No calvarial fracture is noted. Moderate mucosal thickening within the sinuse s is most pronounced within the left sphenoid sinus. Similar findings were shown on prior exam. IMPRESSION: 1. No acute intracranial findings. No change in appearance of the brain. 2. Sinus mucosal thickening, as described above. ACT 112: Negative or not required by law. Electronically signed by: Matias Joel M.D. 11/12/2019 6:29 AM
--- NOTE | 2019-11-12 06:32 | XRay Report ---
XR chest 1V portable CLINICAL HISTORY: Dizzy. Evaluate for pneumonia. COMPARISON STUDY: Chest CT April 30, 2019. Chest radiograph May 05, 2019. FINDINGS: Ventriculostomy catheter is partially imaged. Postoperative findings within the spine are n oted. Cardiomediastinal silhouette is stable. There is no consolidation or evidence for pulmonary shu ma. There is emphysema. The appearance of the chest is similar to prior exam. No pneumothorax or pleu ral effusion is identified. IMPRESSION: No acute cardiopulmonary findings. No significant change in appearance of the chest. ACT 112: Negative or not required by law. Electronically signed by: Matias Joel M.D. 11/12/2019 6:30 AM
--- NOTE | 2019-11-12 06:33 | XRay Report ---
XR hip LT 2V w pelvis CLINICAL HISTORY: Fall. Evaluate for fracture. COMPARISON: CT of the abdomen and pelvis June 02, 2018. FINDINGS: Ventriculostomy catheter is partially imaged. Tip projects over the pelvis. Sacroiliac kadi nts are largely obscured. No acute fracture is identified within the pelvis or hips. There is moderat e joint space narrowing and osteophytosis of both hips. IMPRESSION: No acute fracture within the pelvis or hips. ACT 112: Negative or not required by law. Electronically signed by: Matias Joel M.D. 11/12/2019 6:32 AM
[2019-11-12 06:57] LABS: Basophils # (auto) 0.03 K/uL (0-0.2); Basophils % (auto) 0.4 %; Eosinophils % (auto) 2.9 %; Hematocrit (blood only) 38.9 % (37-47); Hemoglobin 12.8 g/dL (12.0-16.0); Immature Granulocytes # (auto) 0.01 K/uL (0.00-0.02); Immature Granulocytes % (auto) 0.1 %; Lymphocytes # (auto) 2.34 K/uL (1.2-3.4); Lymphocytes % (auto) 34.1 %; Mean Corpuscular Hemoglobin 29.5 pg (25-34); Mean Corpuscular Hgb Conc 32.9 g/dL (32-36); Mean Corpuscular Volume 89.6 fL (80-100); Mean Platelet Volume 10.2 fL (7.4-10.4); Monocytes # (auto) 0.93 K/uL (0.11-0.59); Monocytes % (auto) 13.5 %; Neutrophils # (auto) 3.36 K/uL (1.4-6.5); Platelet Count 271 K/uL (130-400); RDW Coefficient of Variation 13.2 % (11.5-14.5); RDW Standard Deviation 43.3 fL (36.4-46.3); Red Blood Count 4.34 M/uL (4.2-5.4); White Blood Count 6.87 K/uL (4.8-10.8)
[2019-11-12 07:30] LABS: BUN Creatinine Ratio 16.6 (10-20); Calcium 8.9 mg/dl (8.5-10.1); Creatinine Clr Calc Pharmacy 49.9 ml/min; Est GFR (African American) 71.4; Est GFR (Non-African American) 61.6; Potassium 3.9 mmol/L (3.5-5.1)
[2019-11-12 07:37] LABS: Troponin I 0.066 ng/ml (0-0.045)
[2019-11-12] MEDS: LOSARTAN POTASSIUM 50 MG TAB PO SCH (08:26)
[2019-11-12] MEDS: ASPIRIN 81 MG ECTAB PO SCH (08:26)
[2019-11-12] MEDS ORDERED: PNEUMOCOCCAL POLYSACCHARIDES 25 MCG/0.5 ML VIAL/SYR IM ONE (09:00)
[2019-11-12] MEDS ORDERED: PNEUMOCOCCAL ADMINISTRATION CHARGE ONE (09:00)
[2019-11-12] MEDS ORDERED: OPTIRAY 320 125ml IV ONE (09:25)
--- NOTE | 2019-11-12 09:39 | CT Scan Report ---
CT ANGIOGRAPHY OF THE NECK WITH CONTRAST CLINICAL HISTORY: dizziness, fall COMPARISON STUDY: Carotid ultrasound September 29, 2017. CT of the neck April 08, 2016. Technique: CT angiography of the carotid and vertebral arteries was obtained using [employer] 320 IV and 3D reconstruction on an independent workstation. NASCET criteria was utilized. Automated exposure c ontrol was utilized for the study. A dose lowering technique was utilized adhering to the principles of ALARA. CT DOSE: 478.33 mGy.cm Findings: Lung apices are unremarkable. There is no cervical spine fracture. Postoperative findings c onsistent with C3-C4 and C4-C5 anterior discectomy is noted. There are postoperative findings within the upper thoracic spine as well. The bilateral common carotid, cervical internal carotid and vertebr al arteries are patent. This exam is mildly compromised by streak artifact from surgical hardware but no significant abnormality within the vessels within the neck is identified. There is no dissection. No intraluminal thrombus is noted. There is mild plaque of the aortic arch and the proximal great ve ssels. There is mild calcified plaque at the origins of the bilateral internal carotid arteries witho ut resultant stenosis. Right parietal ventriculostomy catheter is partially imaged. Visualized portio ns are intact. Left sphenoid sinus mucosal thickening is probably chronic. IMPRESSION: Unremarkable CTA of the neck. Mild atherosclerotic plaque. ACT 112: Negative or not required by law. Electronically signed by: Matias Joel M.D. 11/12/2019 9:37 AM
--- NOTE | 2019-11-12 09:58 | Neurology Consultation ---
Date of Consultation November 12, 2019 Assessment & Plan (1) Vertigo: (2) Fall: (3) S/P SOLAR TECH shunt: (4) H/O: stroke with residual effects: This patient experienced an episode of vertigo with associated fall yesterday. 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 I do not find any other neurological deficits on her examination this morning. She does have mild positional vertigo with sitting up in bed. A small acute ischemic stroke cannot be completely excluded, however. No evidence of carotid occlusive disease or vertebrobasilar insufficiency on CT angiography of the neck completed this morning. 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 Patient's shunt catheter and ventricular size are stable and her current presentation is not really suggestive of progression in NPH or shunt dysfunction. Please order a brain MRI to exclude a small acute ischemic infarct. Continue with aspirin and atorvastatin as ordered. Continue management of hypertension, blood pressure does appear much better controlled this morning. PT/OT as ordered. History of Present Illness Reason for Consultation: dizziness, TIA Requesting Physician: Herberth Mireles DO Attending Physician: Rock Connelly MD History of Present Illness The patient is an 89-year-old female who presented to the emergency department yesterday after a fall at home. She indicates that she had been feeling l ightheaded and dizzy intermittently throughout the day, prior to her fall. She recalls experiencing a feeling of profound dizziness with a sensation of motion while standing. She subsequently fell to the ground. The episode was not witnessed, she does not think she lost consciousness. She recalls lying on the ground but being unable to get up on her own due to a feeling of motion. She lives in an assisted living facility and was able to call for help. She did not sustain any obvious injuries. She did have significant hypertension at the time of her presentation with a blood pressure of 222/137. Her blood pressure has improved with treatment. She does not recall experiencing any associated vision disturbance, diplopia, or dysarthria. She does complain of a low-grade right frontal headache. Past medical history notable for a right hemispheric stroke that occurred in September 2017 for which she was evaluated by Dr. Vela during an [facility] at that time. The patient indicates that she has chronic residual mild to moderate weakness of the left arm and leg. Past medical history also notable for placement of a ventriculoperitoneal shunt in November 2015 for treatment of normal pressure hydrocephalus that was supported by a radionucleotide cisternogram at that time. Upon further questioning, however, it is not really clear if the patient was experiencing magnetic gait. The patient does not think the shunt really did that much for her. A CT of the head obtained during her assessment in the emergency department was negative for hemorrhage or acute process and is described in further detail below. Allergies Allergy/AdvReac Type Severity Reaction Status Date / Time levofloxacin [From Levaquin] Allergy Unknown Unknown Verified 11/11/19 22:56 Penicillins Allergy Unknown Unknown Verified 11/11/19 22:56 Sulfa (Sulfonamide Allergy Unknown Unknown Verified 11/11/19 22:56 Antibiotics) Macrolide Antibiotics AdvReac Mild GI Symptoms Verified 11/11/19 22:56 Home Medications Home Medications Medication Instructions Recorded Confirmed Type acetaminophen [Tylenol Extra 500 mg PO Q4H PRN MDD 3 GRAMS/24 06/02/18 11/11/19 History Strength] HOURS aspirin [Aspir-81] 81 mg PO DAILY 06/02/18 11/11/19 History diphenhydramine HCl [Allergy 25 - 50 mg PO Q4H PRN MDD 6 06/02/18 11/11/19 History Relief(diphenhydramin)] DOSES/24 HOURS. loperamide [Imodium A-D] 2 mg PO Q3H PRN 06/02/18 11/11/19 History acetaminophen 500 mg PO DAILY 04/05/19 11/11/19 History docusate sodium [Stool Softener] 100 mg PO BID PRN 04/05/19 11/11/19 History benzonatate 100 mg capsule 200 mg PO TID PRN #180 cap 04/28/19 11/11/19 Rx Mucinex Cold,Flu,Sore Throat 20 ml PO QID PRN 04/30/19 11/11/19 History albuterol sulfate [ProAir HFA] 2 puffs INH QID PRN 04/30/19 11/11/19 History losartan 50 mg tablet 50 mg PO QAM #90 tab 05/11/19 11/11/19 Rx diclofenac sodium 1 % topical gel 4 gm TOP QID PRN #100 gm 06/30/19 11/11/19 Rx atorvastatin 40 mg tablet 40 mg PO HS #90 tab 08/24/19 11/11/19 Rx fluticasone furoate-vilanterol 1 inh INHALATION QDL 11/11/19 11/11/19 History [Breo Ellipta] propylene glycol [Systane Complete] 1 drp OPHTHALMIC (EYE) Q4H PRN MDD 11/11/19 11/11/19 History 5 DOSES/24 HOURS. Patient History Medical History C. difficile colitis (2015) Carpal tunnel syndrome Carpal tunnel syndrome CVA (cerebral vascular accident) (09/2017) H/O carcinoma in situ of skin History of DVT (deep vein thrombosis) "Second DVT: November 19, 2016 right posterior tibial vein First DVT: March 11, 2012 extensive thrombus within the greater saphenous vein that extends proximally into the common femoral vein" HTN (hypertension) Hx of breast cancer Hyperlipidemia Lumbosacral disc disease with surgical intervention Normal pressure hydrocephalus Osteoporosis with fracture Stroke (09/2017) Unilateral recurrent inguinal hernia without obstruction or gangrene Surgical History H/O mastectomy left side History of appendectomy History of back surgery History of carpal tunnel surgery History of Neuroplasty Decompression Median Nerve At Carpal Tunnel History of cataract surgery History of lumbar fusion History of Lumbar Vertebral Fusion History of mastectomy History of vaginal hysterectomy Hx of cholecystectomy Hx of vaginal hysterectomy S/P SOLAR TECH shunt (11/2015) Family History Family/Other Breast cancer Mother Tuberculosis Father Stroke Other Lung disease Social History Smoking Status: Never smoker Hx Alcohol Use: No Hx Substance Use: No Preferred Language: Portuguese Communication Ability: Effective Speech Therapist Technician Required: No Beliefs That Will Affect Care: None marital status: Current Living Situation: Personal Care Facility Current Living Situation Comment: [facility] current occupational status: retired Feels Safe at Home: Yes Review of Systems Constitutional: no fever and no chills Eyes: no blind spots and no diplopia Ear, Nose, Mouth, Throat: no ear pain, no tinnitus and no hearing loss Respiratory: no cough and no dyspnea Cardiovascular: no chest pain and no palpitations Gastrointestinal: no nausea and no vomiting Genitourinary: + urinary incontinence Musculoskeletal: no back pain, no neck pain and no myalgia Integumentary: no rash and no lesions Neurologic: as per Subjective / HPI, + gait abnormality, + unsteadiness, + localized weakness, + dizziness and + headache(s); no tremor(s), no confusion and no memory loss Psychiatric: no depression and no anxiety Hematologic / Lymphatic: no easy bleeding and no easy bruising Exam (Neuro) Constitutional: well developed and well nourished; no acute distress Eyes: normal visual warner by confrontation, PERRL, normal accommodation and EOM intact bilaterally; no fundoscopic abnormality, no nystagmus and no papilledema Cardiovascular: Vessels: normal carotid upstroke; no carotid bruit Neurologic: Oriented to:: Person, Place and Time Memory: Short Term Intact and Remote Intact Attention: Span Intact and Concentration Intact Language: Naming Objects and Repeating Phrases Speech Fluency: negative Dysarthria Speech Aphasia: negative Aphasia Fund of Knowledge: Current Events, Past History and Vocabulary Cranial Nerves: Normal II (Visual warner full to confrontation, visual acuity normal), III, IV, (Pupils equal round reactive to light and accommodation, eye movements normal), V (Facial sensation intact), VII (There is no facial droop or weakness), VIII (Hearing intact), IX, X (Palate elevates to midline), XI (Shoulder shrug intact) and XII (Tongue protrudes to midline) Motor Strength: negative Normal Lower Extremities (Mild weakness for the left upper extremity noted), Normal Upper Extremities (Mild weakness for the left lower extremity noted) and Pronator Drift Motor Tone: Normal Lower Extremities and Normal Upper Extremities Muscle Bulk/Involuntary Movements: No Involuntary Movements; negative Muscle Atrophy Sensation: Light Touch Intact, Pain/Temperature Intact, Vibration Intact and Proprioception Intact Coordination: Normal; negative Limited Balance, Dysdiadochokinesia, Finger-Nose Abnormal and Heel-Aguilar Abnormal Deep Tendon Reflexes: Rt Triceps: 2+, Lt Triceps: 2+, Rt Biceps: 2+, Lt Biceps: 2+, Rt Brachioradialis: 2+, Lt Brachioradialis: 2+, Rt Patellar: 2+, Lt Patellar: 2+, Rt Ankle: 2+ and Lt Ankle: 2+ Special Tests: Babinski Present (Bilateral upgoing toes, left greater than right) Details: Gait could not be tested in the context of patient's current neurological/medical condition. Patient has mild dysmetria with [id number] and [id number] on the left. There is a fix with arm roll on the left as well. Patient does have some mild positional vertigo this morning, notable with sitting up in bed, and improving with lying back. Results & Data ([facility]) Vital Signs (Past 12 Hours) Vital Signs Temp Pulse Pulse Resp BP BP Pulse Ox 11/12/19 07:50 36.5 C 89 20 123/77 94 11/12/19 07:31 89 11/12/19 02:46 89 11/12/19 01:30 36.9 C 92 H 16 129/82 95 11/12/19 01:00 94 H 18 135/92 94 11/12/19 00:30 92 H 18 150/92 H 94 11/12/19 00:00 92 H 18 140/94 93 11/11/19 23:50 90 18 142/99 H 95 11/11/19 23:40 90 18 150/99 H 96 11/11/19 23:31 89 18 153/84 H 96 11/11/19 23:10 94 H 18 158/127 H 97 11/11/19 23:05 92 H 18 163/93 H 96 11/11/19 22:25 36.7 C 105 H 18 222/137 H 96 Laboratory Results WBC 6.87, hemoglobin 12.8, hematocrit 38.9, platelet count 271, sodium 142, potassium 3.9, BUN 14, creatinine 0.84, glucose 91 Lipid panel from May 2018: Triglycerides 105, cholesterol 133, LDL 50, VLDL 21, HDL [address] of the head reveals a right parietal ventriculostomy catheter terminating in the anterior left lateral ventricle, unchanged compared with April 2019. Ventricular size stable. There is chronic periventricular ischemic change as well as a chronic appearing small ischemic subcortical infarct within the right cerebral hemisphere. There is no hemorrhage. No acute process. I reviewed the images as well as the radiologist's interpretation of this test. A CT angiogram of the neck completed this morning is unremarkable revealing only mild atherosclerotic plaque. The internal carotid and vertebral arteries are patent. I reviewed the images as well as the radiologist interpretation of this test. An electrocardiogram reveals sinus tachycardia with first-degree AV block, 103 bpm. Coding Level of Care Code 01214 Initial Inpt Care Lvl 3 Diagnoses Vertigo R42 Fall W19.XXXA Encounter type: initial encounter S/P SOLAR TECH shunt Z98.2 H/O: stroke with residual effects I69.30 (1) Fall Encounter type: initial encounter Qualified Code(s): W19.XXXA - Unspecified fall, initial encounter
--- NOTE | 2019-11-12 12:07 | Hospitalist Progress Note ---
Date of Service November 12, 2019 Assessment & Plan (1) Fall: Became acutely dizzy, tried to sit down, but did not make it. Feels she lost consciousness for about 5 minutes or less. - Seen by neurology; asked for MRI brain - PT/OT (2) Hypertensive emergency: BP as high as 220/140 on admission in the setting of pain and fall. - Now down to 130/85. - Continue losartan 50 mg daily (3) Hypertension: As above (4) Stroke: Prior CVA with left-sided weakness. - Continue ASA & atorvastatin (5) S/P ASSEMBLY LINE BRAZER shunt: No issues at present. 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 - Lovenox 40 mg SQ daily Admission and Anticipated Discharge Date Admission Date: November 12, 2019 Subjective Has a headache today, but otherwise doing ok. Does recall getting dizzy prior to her fall. Some right shoulder soreness initially, but now better. Reports no fevers/chills, chest pain, shortness of breath, abdominal pain, nausea, or vomiting. Physical Exam Constitutional: WD/WN, vitals as above Eyes: EOM intact bilaterally; no conjunctival abnormality ENMT: external ear and nose normal, oropharynx normal Neck: trachea midline, no thyromegaly normal visual inspection Respiratory: normal respiratory effort, lungs clear to auscultation no respiratory distress Cardiovascular: RRR, no murmur, no edema Gastrointestinal (Abdomen): Inspection/Auscultation: abdomen normal to inspection; abdomen not distended Musculoskeletal: no cyanosis or clubbing, extremities motor strength 5/5 Skin: no rashes, warm and dry Neurologic: moves all extremities and awake Psychiatric: Orientation: alert, oriented to person and cooperative Results & Data Results & Data ([facility]) Vital Signs (Past 12 Hours) Vital Signs Temp Pulse Pulse Resp BP BP Pulse Ox 11/12/19 11:14 36.5 C 88 20 128/84 96 11/12/19 07:50 36.5 C 89 20 123/77 94 11/12/19 07:31 89 11/12/19 02:46 89 11/12/19 01:30 36.9 C 92 H 16 129/82 95 11/12/19 01:00 94 H 18 135/92 94 11/12/19 00:30 92 H 18 150/92 H 94 PG Care Time/CCT Total # of Minutes Spent Total Time Spent with Patient: Total time spent is greater than 50% in coordination of care (as documented) at patient's floor/unit and/or counseling patient: Coding Level of Care Code 55446 Subseq Hosp Care Lvl 3 Diagnoses Fall W19.XXXA Encounter type: initial encounter Hypertensive emergency I16.1 Hypertension I10 Hypertension type: essential hypertension Stroke I63.9 CVA mechanism: unspecified S/P ASSEMBLY LINE BRAZER shunt Z98.2 History of DVT (deep vein thrombosis) Z86.718 (1) Fall Encounter type: initial encounter Qualified Code(s): W19.XXXA - Unspecified fall, initial encounter (2) Hypertension Hypertension type: essential hypertension Qualified Code(s): I10 - Essential (primary) hypertension (3) Stroke CVA mechanism: unspecified Qualified Code(s): I63.9 - Cerebral infarction, unspecified
[2019-11-12] MEDS: FLUTICASONE/VILANTEROL 100/25MCG 14 PUFFS/INHALER INH SCH (12:58)
[2019-11-12] MEDS: ENOXAPARIN INJ 40 MG/0.4 ML SYR SQ SCH (13:01)
--- NOTE | 2019-11-12 21:05 | Magnetic Resonance Report ---
MR brain wo con HISTORY: 89 years-old Female Possible stroke acute strokelike symptoms COMPARISON: Head CT 11/11/2019, brain MRI 09/30/2017 TECHNIQUE: Multiplanar multisequence MRI of the brain was obtained without the use of IV contrast. FINDINGS: Doctor Of Naprapathic Medicine localizer images demonstrate no gross extracranial abnormality. Right-sided ventriculostomy cat heter is noted. The study is also motion degraded. No restricted diffusion to suggest acute or subacu te infarct. Midline structures including the corpus callosum, brainstem, optic chiasm, pituitary and pineal glands appear unremarkable the sagittal T1 series. No cerebellar tonsillar herniation. Fusion hardware of the cervical spine. No acute intracranial hemorrhage, midline shift, abnormal extra axial collection, hydrocephalus or in tracranial mass. Age-related involutional changes. Extensive and confluent T2/FLAIR hyperintensities about the white matter redemonstrated. Encephalomalacia and gliosis with subcentimeter remote infarct of the periventricular white matter of the right cerebral hemisphere on image 16 series 7. Major vas cular flow voids in stable venous sinuses appear patent. Small left and moderate right mastoid effusi ons. Mild mucosal thickening of the paranasal sinuses, most pronounced the left sphenoid sinus. The s kull and soft tissues are unremarkable. Prior bilateral lens replacement. IMPRESSION: 1. No acute intracranial abnormality, specifically there is no acute or subacute infarct. 2. Chronic findings as above. ACT 112: Negative or not required by law. The above report was generated using voice recognition software. It may contain grammatical, syntax o r spelling errors. Electronically signed by: Marquez Davila M.D. 11/12/2019 9:03 PM
[2019-11-12] MEDS: ATORVASTATIN 40 MG TAB PO SCH (21:39)
--- NOTE | 2019-11-13 05:13 | Billing Data ---
Date of Service November 13, 2019 Coding Level of Care Code 94039 Initial Inpt Care Lvl 3
[2019-11-13 06:06] LABS: Basophils # (auto) 0.05 K/uL (0-0.2); Basophils % (auto) 0.9 %; Eosinophils # (auto) 0.33 K/uL (0-0.5); Eosinophils % (auto) 5.8 %; Hematocrit (blood only) 42.4 % (37-47); Hemoglobin 13.3 g/dL (12.0-16.0); Lymphocytes # (auto) 2.03 K/uL (1.2-3.4); Lymphocytes % (auto) 35.4 %; Mean Corpuscular Hemoglobin 28.5 pg (25-34); Mean Corpuscular Hgb Conc 31.4 g/dL (32-36); Mean Corpuscular Volume 90.8 fL (80-100); Mean Platelet Volume 9.9 fL (7.4-10.4); Monocytes # (auto) 0.65 K/uL (0.11-0.59); Monocytes % (auto) 11.3 %; Neutrophils # (auto) 2.67 K/uL (1.4-6.5); Neutrophils % (auto) 46.6 %; Platelet Count 272 K/uL (130-400); RDW Coefficient of Variation 13.6 % (11.5-14.5); RDW Standard Deviation 45.4 fL (36.4-46.3); Red Blood Count 4.67 M/uL (4.2-5.4); White Blood Count 5.73 K/uL (4.8-10.8)
[2019-11-13 06:40] LABS: BUN Creatinine Ratio 18.6 (10-20); Creatinine Clr Calc Pharmacy 41.1 ml/min; Est GFR (African American) 56.5; Est GFR (Non-African American) 48.7; Magnesium 2.4 mg/dl (1.8-2.4); Potassium 4.1 mmol/L (3.5-5.1)
[2019-11-13] MEDS: ASPIRIN 81 MG ECTAB PO SCH (08:05)
[2019-11-13] MEDS: LOSARTAN POTASSIUM 50 MG TAB PO SCH (08:05)
[2019-11-13] MEDS: FLUTICASONE/VILANTEROL 100/25MCG 14 PUFFS/INHALER INH SCH (11:33)
[2019-11-13] MEDS: ENOXAPARIN INJ 40 MG/0.4 ML SYR SQ SCH (13:17)
--- NOTE | 2019-11-13 14:27 | Hospitalist Progress Note ---
Date of Service November 13, 2019 Assessment & Plan (1) Fall: Became acutely dizzy, tried to sit down, but did not make it. Feels she lost consciousness for about 5 minutes or less. - Seen by neurology; asked for MRI brain - PT/OT -> Recommending SNF/rehab. (2) Hypertensive emergency: BP as high as 220/140 on admission in the setting of pain and fall. - Now down to 110/75. - Continue losartan 50 mg daily (3) Hypertension: As above (4) Stroke: Prior CVA with left-sided weakness. - Continue ASA & atorvastatin (5) S/P PLUG SAW OPERATOR shunt: No issues at present. 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 - Lovenox 40 mg SQ daily Admission and Anticipated Discharge Date Admission Date: November 12, 2019 Subjective Better today, but still very hesitant about getting up and walking. Reports no fevers/chills, chest pain, shortness of breath, abdominal pain, nausea, or vomiting. Physical Exam Constitutional: WD/WN, vitals as above Eyes: EOM intact bilaterally; no conjunctival abnormality ENMT: external ear and nose normal, oropharynx normal Neck: trachea midline, no thyromegaly normal visual inspection Respiratory: normal respiratory effort, lungs clear to auscultation no respiratory distress Cardiovascular: RRR, no murmur, no edema Gastrointestinal (Abdomen): Inspection/Auscultation: abdomen normal to inspection; abdomen not distended Musculoskeletal: no cyanosis or clubbing, extremities motor strength 5/5 Skin: no rashes, warm and dry Neurologic: moves all extremities and awake Psychiatric: Orientation: alert, oriented to person and cooperative Results & Data Results & Data ([facility]) Vital Signs (Past 12 Hours) Vital Signs Temp Pulse Pulse Resp BP Pulse Ox 11/13/19 11:20 36.8 C 97 H 16 110/75 92 11/13/19 07:39 85 11/13/19 07:09 36.2 C L 89 16 145/87 H 95 11/13/19 04:00 36.6 C 80 18 142/84 H 91 PG Care Time/CCT Total # of Minutes Spent Total Time Spent with Patient: Total time spent is greater than 50% in coordination of care (as documented) at patient's floor/unit and/or counseling patient: Coding Level of Care Code 29993 Subseq Hosp Care Lvl 2 Diagnoses Fall W19.XXXA Encounter type: initial encounter Hypertensive emergency I16.1 Hypertension I10 Hypertension type: essential hypertension Stroke I63.9 CVA mechanism: unspecified S/P PLUG SAW OPERATOR shunt Z98.2 History of DVT (deep vein thrombosis) Z86.718 (1) Fall Encounter type: initial encounter Qualified Code(s): W19.XXXA - Unspecified fall, initial encounter (2) Hypertension Hypertension type: essential hypertension Qualified Code(s): I10 - Essential (primary) hypertension (3) Stroke CVA mechanism: unspecified Qualified Code(s): I63.9 - Cerebral infarction, unspecified
[2019-11-13] MEDS: ACETAMINOPHEN 325 MG TAB PO PRN (15:28)
[2019-11-13] MEDS: ATORVASTATIN 40 MG TAB PO SCH (20:13)
--- NOTE | 2019-11-13 23:04 | Electrocardiogram Report ---
Test Reason : Blood Pressure : / mmHG Vent. Rate : 103 BPM Atrial Rate : 103 BPM P-R Int : 212 ms QRS Dur : 094 ms QT Int : 334 ms P-R-T Axes : 060 028 063 degrees QTc Int : 437 ms Sinus tachycardia with 1st degree A-V block When compared with ECG of 30-APR-2019 08:40, [place] interval has increased Confirmed by Wisam Medellin ([id number]) on 11/13/2019 11:03:49 PM Referred By: [facility] Confirmed By:Wisam Medellin
[2019-11-13] MEDS ORDERED: MELATONIN 3 MG TAB PO PRN (23:58)
--- NOTE | 2019-11-14 05:16 | Electrocardiogram Report ---
Test Reason : Blood Pressure : / mmHG Vent. Rate : 094 BPM Atrial Rate : 094 BPM P-R Int : 206 ms QRS Dur : 086 ms QT Int : 360 ms P-R-T Axes : 059 043 067 degrees QTc Int : 450 ms Normal sinus rhythm ST elevation, consider early repolarization vs injury When compared with ECG of 11-NOV-2019 22:19, ST elevation now present in Inferolateral leads Confirmed by Wisam Medellin ([id number]) on 11/14/2019 5:15:59 AM Referred By: [facility] Confirmed By:Wisam Medellin
[2019-11-14 07:23] LABS: Basophils # (auto) 0.04 K/uL (0-0.2); Basophils % (auto) 0.8 %; Eosinophils % (auto) 6.3 %; Hematocrit (blood only) 41.4 % (37-47); Hemoglobin 13.1 g/dL (12.0-16.0); Immature Granulocytes # (auto) 0.01 K/uL (0.00-0.02); Immature Granulocytes % (auto) 0.2 %; Lymphocytes # (auto) 1.67 K/uL (1.2-3.4); Lymphocytes % (auto) 35.1 %; Mean Corpuscular Hemoglobin 28.8 pg (25-34); Mean Corpuscular Hgb Conc 31.6 g/dL (32-36); Mean Platelet Volume 9.8 fL (7.4-10.4); Monocytes # (auto) 0.72 K/uL (0.11-0.59); Monocytes % (auto) 15.1 %; Neutrophils # (auto) 2.02 K/uL (1.4-6.5); Neutrophils % (auto) 42.5 %; Platelet Count 265 K/uL (130-400); RDW Coefficient of Variation 13.5 % (11.5-14.5); Red Blood Count 4.55 M/uL (4.2-5.4); White Blood Count 4.76 K/uL (4.8-10.8)
[2019-11-14 07:50] LABS: BUN Creatinine Ratio 22.6 (10-20); Calcium 9.4 mg/dl (8.5-10.1); Creatinine Clr Calc Pharmacy 45.6 ml/min; Est GFR (Non-African American) 55.2; Potassium 4.3 mmol/L (3.5-5.1)
[2019-11-14] MEDS: ASPIRIN 81 MG ECTAB PO SCH (07:56)
[2019-11-14] MEDS: LOSARTAN POTASSIUM 50 MG TAB PO SCH (07:56)
[2019-11-14] MEDS: FLUTICASONE/VILANTEROL 100/25MCG 14 PUFFS/INHALER INH SCH (11:46)
--- NOTE | 2019-11-14 12:14 | Hospitalist Progress Note ---
Date of Service November 14, 2019 Assessment & Plan (1) Fall: Became acutely dizzy, tried to sit down, but did not make it. Feels she lost consciousness for about 5 minutes or less. MRI brain on 11/11 showed no stroke. - Seen by neurology - Feel syncope was likely an orthostatic/vasovagal episode. No telemetry events noted. Has had a few milder episodes in the hospital, all in the context of changing positions (sitting to standing) which then resolve after she is back in bed with feet propped up. - Coat Presser thigh-high compression stockings, good hydration, slow transitions. - PT/OT -> Recommending SNF/rehab. Plan for [facility] vs. [facility]. Referrals made. Patient and son in agreement. (2) Hypertensive emergency: BP as high as 220/140 on admission in the setting of pain and fall. - Now down to 110/75. - Continue losartan 50 mg daily (overall BP is somewhat labile with readings as high as 170/90). Given occasional orthostasis, would not increase dose, but given highs, do not want to stop either. Hopefully this is the best middle ground we can get. (3) Hypertension: As above (4) Stroke: Prior CVA with left-sided weakness. - Continue ASA & atorvastatin (5) S/P SENIOR DATA INTEGRATION DEVELOPER shunt: No issues at present. 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 - Lovenox 40 mg SQ daily Admission and Anticipated Discharge Date Admission Date: November 13, 2019 Subjective Doing well today. Was up and around walking. Reports no fevers/chills, chest pain, shortness of breath, abdominal pain, nausea, or vomiting. Physical Exam Constitutional: WD/WN, vitals as above Eyes: EOM intact bilaterally; no conjunctival abnormality ENMT: external ear and nose normal, oropharynx normal Neck: trachea midline, no thyromegaly normal visual inspection Respiratory: normal respiratory effort, lungs clear to auscultation no respiratory distress Cardiovascular: RRR, no murmur, no edema Gastrointestinal (Abdomen): Inspection/Auscultation: abdomen normal to inspection; abdomen not distended Musculoskeletal: no cyanosis or clubbing, extremities motor strength 5/5 Skin: no rashes, warm and dry Neurologic: moves all extremities and awake Psychiatric: Orientation: alert, oriented to person and cooperative Results & Data Results & Data ([facility]) Vital Signs (Past 12 Hours) Vital Signs Temp Pulse Pulse Resp BP Pulse Ox 11/14/19 11:13 36.5 C 88 16 107/64 95 11/14/19 07:29 83 11/14/19 07:15 36.9 C 86 16 152/89 H 94 PG Care Time/CCT Total # of Minutes Spent Total Time Spent with Patient: Total time spent is greater than 50% in coordination of care (as documented) at patient's floor/unit and/or counseling patient: Coding Level of Care Code 89765 Subseq Hosp Care Lvl 2 Diagnoses Fall W19.XXXA Encounter type: initial encounter Hypertensive emergency I16.1 Hypertension I10 Hypertension type: essential hypertension Stroke I63.9 CVA mechanism: unspecified S/P SENIOR DATA INTEGRATION DEVELOPER shunt Z98.2 History of DVT (deep vein thrombosis) Z86.718 (1) Fall Encounter type: initial encounter Qualified Code(s): W19.XXXA - Unspecified fall, initial encounter (2) Hypertension Hypertension type: essential hypertension Qualified Code(s): I10 - Essential (primary) hypertension (3) Stroke CVA mechanism: unspecified Qualified Code(s): I63.9 - Cerebral infarction, unspecified
[2019-11-14] MEDS: ENOXAPARIN INJ 40 MG/0.4 ML SYR SQ SCH (12:56)
[2019-11-14] MEDS: ATORVASTATIN 40 MG TAB PO SCH (21:24)
[2019-11-15] MEDS: ACETAMINOPHEN 325 MG TAB PO PRN ×2 (08:34→11:50)
[2019-11-15] MEDS: ASPIRIN 81 MG ECTAB PO SCH (08:34)
[2019-11-15] MEDS: LOSARTAN POTASSIUM 50 MG TAB PO SCH (08:34)
[2019-11-15] MEDS: ENOXAPARIN INJ 40 MG/0.4 ML SYR SQ SCH (11:51)
[2019-11-15] MEDS: FLUTICASONE/VILANTEROL 100/25MCG 14 PUFFS/INHALER INH SCH (11:51)
--- NOTE | 2019-11-15 15:46 | Hospitalist Progress Note ---
Date of Service November 15, 2019 Assessment & Plan (1) Fall: Became acutely dizzy, tried to sit down, but did not make it. Feels she lost consciousness for about 5 minutes or less. MRI brain on 11/11 showed no stroke. has some episodes of dizziness at rest lying flat and others with getting up and moving. Difficult to say if vertigo vs orthostasis although orthostatic vitals early in course were normal - Seen by neurology-thinks probably positional vertigo but could be stroke and recommended brain MRI--> neg for acute stroke CTA Neck no stenosis making vertebrobasilar insufficiency not likely ECG initially normal, then repeat with ST elevations in inferolateral leads vs early repol--> trop mildly elevated and then repeat today negative, not likely ACS but rather myocardial demand ischemia ECHO pending, no events on tele except 1st deg AVB - PT/OT -> Recommending SNF/rehab. Plan for [facility] vs. [facility]. Referrals made. Patient and son in agreement. (2) Hypertensive emergency: BP as high as 220/140 on admission in the setting of pain and fall. - Now improved - Continue losartan 50 mg daily (3) Hypertension: As above (4) Stroke: Prior CVA with left-sided weakness. - Continue ASA & atorvastatin (5) S/P DISCHARGE SPECIALIST shunt: No issues at present. 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 - Lovenox 40 mg SQ daily Could consider lifetime anticoagulation given 2 events however with vertigo and falls, now would not be the time to do so (7) Elevated troponin: trop mildly elevated on admission at 0.066, ECG on repeat had some poss inferolat ST elevations vs early repol that wsn't present previously Repeat trop today negative making ACS ruled out Never any chest pain, likely myocardial demand ischemia from strain of possible syncope? -check ECHO monitor on tele (8) Abnormal ECG: as above repeat ECG today (9) Hyperlipidemia: continue statin (10) DVT prophylaxis: Lovenox SQ Dispo-to rehab tomorrow Admission and Anticipated Discharge Date Admission Date: November 13, 2019 Subjective Pt reports still having occasional bouts of dizziness, sometimes while lying in bed with turning her head to one side. No episodes with going from lying to sitting to sitting to standing. Denies chest pain or SOB. Is eating well and had a BM today. No other concerns. Tele with sinus rhythm, 1st degree AV block. , rates 100s Review of Systems Review of Systems: All systems reviewed & are unremarkable except as noted in HPI & below Physical Exam Constitutional: WD/WN, vitals as above Eyes: PERRL, conjunctivae normal, anicteric sclerae EOM intact bilaterally; no anisocoria and no nystagmus ENMT: external ear and nose normal, oropharynx normal Neck: trachea midline, no thyromegaly Respiratory: normal respiratory effort, lungs clear to auscultation Cardiovascular: RRR, no murmur, no edema Chest (Breasts): Chest: normal inspection of chest Gastrointestinal (Abdomen): normal bowel sounds, soft, nontender, no hepatosplenomegaly Musculoskeletal: Extremities: extremities normal to inspection; no cyanosis and no clubbing Skin: no rashes, warm and dry Neurologic: moves all extremities and awake; no focal motor deficits Psychiatric: A+Ox3, euthymic affect Lymphatic: no lymphedema Results & Data Results & [facility] ([facility]) Vital Signs (Past 12 Hours) Vital Signs Temp Pulse Pulse Resp BP Pulse Ox 11/15/19 15:00 36.8 C 87 18 145/75 H 94 11/15/19 11:57 36.6 C 89 18 115/76 93 11/15/19 09:23 65 152/93 H 11/15/19 08:52 65 166/103 H 11/15/19 07:10 98 H 11/15/19 05:58 36.7 C 94 H 18 167/91 H 93 Laboratory Results 11/15/19 Range/Units 08:41 Troponin I < 0.015 (0-0.045) ng/ml PG Care Time/CCT Total # of Minutes Spent Total Time Spent with Patient: Total time spent is greater than 50% in coordination of care (as documented) at patient's floor/unit and/or counseling patient: Coding Level of Care Code 43001 Subseq Hosp Care Lvl 3 Diagnoses Fall W19.XXXA Encounter type: initial encounter Hypertensive emergency I16.1 Hypertension I10 Hypertension type: essential hypertension Stroke I63.9 CVA mechanism: unspecified S/P DISCHARGE SPECIALIST shunt Z98.2 History of DVT (deep vein thrombosis) Z86.718 Elevated troponin R79.89 Abnormal ECG R94.31 Hyperlipidemia E78.5 Hyperlipidemia type: unspecified DVT prophylaxis Z29.9 (1) Fall Encounter type: initial encounter Qualified Code(s): W19.XXXA - Unspecified fall, initial encounter (2) Hypertension Hypertension type: essential hypertension Qualified Code(s): I10 - Essential (primary) hypertension (3) Stroke CVA mechanism: unspecified Qualified Code(s): I63.9 - Cerebral infarction, unspecified (4) Hyperlipidemia Hyperlipidemia type: unspecified Qualified Code(s): E78.5 - Hyperlipidemia, unspecified
--- NOTE | 2019-11-15 16:54 | XCELERA ---
[id number]
[2019-11-15] MEDS: ATORVASTATIN 40 MG TAB PO SCH (19:51)
[2019-11-16] MEDS: ASPIRIN 81 MG ECTAB PO SCH (08:07)
[2019-11-16] MEDS: LOSARTAN POTASSIUM 50 MG TAB PO SCH (08:07)
[2019-11-16] MEDS: ACETAMINOPHEN 325 MG TAB PO PRN (08:12)
[2019-11-16 08:22] LABS: Basophils # (auto) 0.03 K/uL (0-0.2); Basophils % (auto) 0.4 %; Eosinophils # (auto) 0.08 K/uL (0-0.5); Eosinophils % (auto) 1.1 %; Hematocrit (blood only) 47.8 % (37-47); Hemoglobin 15.7 g/dL (12.0-16.0); Immature Granulocytes # (auto) 0.01 K/uL (0.00-0.02); Immature Granulocytes % (auto) 0.1 %; Lymphocytes % (auto) 24.3 %; Mean Corpuscular Hemoglobin 29.6 pg (25-34); Mean Corpuscular Hgb Conc 32.8 g/dL (32-36); Mean Corpuscular Volume 90.2 fL (80-100); Mean Platelet Volume 9.9 fL (7.4-10.4); Monocytes # (auto) 0.63 K/uL (0.11-0.59); Neutrophils # (auto) 4.54 K/uL (1.4-6.5); Neutrophils % (auto) 65.1 %; Platelet Count 328 K/uL (130-400); RDW Coefficient of Variation 13.1 % (11.5-14.5); RDW Standard Deviation 43.5 fL (36.4-46.3); White Blood Count 6.99 K/uL (4.8-10.8)
[2019-11-16 08:56] LABS: Albumin Level 3.8 gm/dl (3.4-5.0); BUN Creatinine Ratio 14.9 (10-20); Creatinine Clr Calc Pharmacy 40.7 ml/min; Est GFR (African American) 55.8; Est GFR (Non-African American) 48.2; Magnesium 2.3 mg/dl (1.8-2.4); Potassium 4.2 mmol/L (3.5-5.1)
[2019-11-16 09:07] LABS: Bilirubin,Total 0.8 mg/dl (0.2-1); Globulin 3.8 gm/dl (2.5-4.0); Thyroid Stimulating Hormone 2.68 uIu/ml (0.300-4.500); Total Protein 7.6 gm/dl (6.4-8.2)
--- NOTE | 2019-11-16 11:38 | Medical Student Progress Note ---
Date of Service November 16, 2019 Assessment & Plan (1) Vertigo: CT and MRI showed no acute signs of hemorrhagic or ischemic stroke. Considering the patient's dizziness is correlated with body position, BVVP is most probable, but mild orthostatic hypotension could be contributing to dizziness feeling when patients stands. PT/OT- Recommended rehab, refer to rehab, waiting on case management. Patient and Son in agreement (2) Abnormal ECG: Monitor on tele (3) Elevated troponin: Repeat Troponin came out normal. Pt denies chest pain, SOB, or JOHN. ECG did show some tachycardia and ST abnormalities however. Monitor for symptoms (4) Hypertension: Continue Losartan 50MG Hypertension type: essential hypertension Qualified Code(s): I10 - Essential (primary) hypertension (5) Stroke: Prior CVA Continue ASA and Atorvastatin CVA mechanism: unspecified Qualified Code(s): I63.9 - Cerebral infarction, unspecified Admission and Anticipated Discharge Date Admission Date: November 13, 2019 Subjective Pt is a 89 yo F with a significant PMH of CVA w L sided residual weakness, HT, and 2x Prior DVT that presented to the hospital on after a fall and acute vertigo spells. Spoke with patient today and she states to still be feeling "woozy" when sitting or standing. Describes it as a spinning sensation. Pt denies and chest pain,SOB, or palpitations. Notes increased frequency of Headaches on the Right frontal side. Review of Systems Constitutional: no fever, no chills, no sweats and no malaise Eyes: no diplopia, no photophobia and no worsening vision Ear, Nose, Mouth, Throat: + dizziness; no ear pain, no hearing loss and no post nasal drip Respiratory: no cough, no dyspnea, no dyspnea on exertion and no wheezing Cardiovascular: + edema; no chest pain, no radiating jaw, neck or arm pain and no palpitations Gastrointestinal: no abdominal pain, no nausea, no vomiting and no constipation Genitourinary: no flank pain Musculoskeletal: + muscle weakness (L UE, residual from prior CVA) Integumentary: Large Contusion approximately 14 cm in diameter from initial fall on the R posterior aspect of arm. Neurologic: + falls, + localized weakness (L side), + dizziness and + headache(s); no abnormal speech Psychiatric: no irritability, no confusion and no hallucinations Physical Exam Constitutional: healthy appearing Eyes: normal visual warner by confrontation, PERRL and reactive pupils; no nystagmus and no photophobia ENMT: Ears: no hearing impairment, Herrera normal and Rinne normal Nose: no sinus tenderness and no facial exam abnormality Mouth: no oral mucosal abnormality and no tongue abnormality Neck: normal visual inspection Respiratory: normal respiratory effort; no cough and not tachypneic Auscultation: lungs clear to auscultation bilaterally; no crackles, no rales, no rhonchi and no wheezes Cardiovascular: Rate/Rhythm: + tachycardic Heart Sounds: no click, no gallop, no murmur and no cardiac rub Vessels: normal carotid upstroke; no carotid bruit Extremities: + calf tenderness and + pedal edema Skin: Trauma: + evidence of skin trauma and + contusion (R arm on posteriolateral side) Neurologic: patellar DTR's 2+ bilat, sensation intact CN's II-XI intact bilaterally and deep tendon reflexes 2+ bilaterally; not confused Speech / Cognition: normal speech Psychiatric: Orientation: alert and oriented to place Eye Contact: good eye contact Results & Data ([facility]) Vital Signs (Past 12 Hours) Vital Signs Temp Pulse Pulse Resp BP Pulse Ox 11/16/19 07:40 36.5 C 119 H 18 133/101 H 92 11/16/19 07:15 121 H 11/16/19 04:13 177/93 H 11/16/19 03:49 36.6 C 113 H 24 186/111 H 95 11/16/19 00:00 97 H 11/15/19 23:41 36.7 C 97 H 20 174/90 H 95 Laboratory Results BMP unremarkable (Na-140, K-4.2, Cl-109, HCO3-23, BUN-15, Cr-1.03, Glu-115) CBC normal Diagnostic Findings CT- No Acute hemorrage or evidence of NPH progression. SPARK PLUG TESTER shunt visible MRI- No signs of ischemic stroke Echocardiogram- Normal (EF=70% with mild LV hypertrophy) ECG- Sinus Tachycardia
[2019-11-16] MEDS: FLUTICASONE/VILANTEROL 100/25MCG 14 PUFFS/INHALER INH SCH (13:11)
[2019-11-16] MEDS: ENOXAPARIN INJ 40 MG/0.4 ML SYR SQ SCH (13:12)
--- NOTE | 2019-11-16 18:05 | Electrocardiogram Report ---
Test Reason : Blood Pressure : / mmHG Vent. Rate : 092 BPM Atrial Rate : 092 BPM P-R Int : 204 ms QRS Dur : 084 ms QT Int : 352 ms P-R-T Axes : 064 029 066 degrees QTc Int : 435 ms Normal sinus rhythm When compared with ECG of 13-NOV-2019 14:18, No significant change was found Confirmed by Morgan Sykes ([id number]) on 11/16/2019 6:05:19 PM Referred By: [facility] Confirmed By:Chance Sykes
--- NOTE | 2019-11-16 18:12 | Electrocardiogram Report ---
Test Reason : Blood Pressure : / mmHG Vent. Rate : 116 BPM Atrial Rate : 116 BPM P-R Int : 176 ms QRS Dur : 080 ms QT Int : 326 ms P-R-T Axes : 064 014 075 degrees QTc Int : 453 ms Sinus tachycardia Anteroseptal infarct (cited on or before 15-NOV-2019) Abnormal ECG Confirmed by Morgan Sykes ([id number]) on 11/16/2019 6:12:14 PM Referred By: [facility] [place] Confirmed By:Chance Sykes
--- NOTE | 2019-11-16 18:14 | Hospitalist Progress Note ---
Date of Service November 16, 2019 Assessment & Plan (1) Fall: Became acutely dizzy, tried to sit down, but did not make it. Feels she lost consciousness for about 5 minutes or less. MRI brain on 11/11 showed no stroke. has some episodes of dizziness at rest lying flat and others with getting up and moving. Difficult to say if vertigo vs orthostasis although orthostatic vitals early in course were normal. Today's orthostatics were positive initially upon standing, but then normalized after 1 minute of standing as per PT notes - Seen by neurology-thinks probably positional vertigo but could be stroke and recommended brain MRI--> neg for acute stroke CTA Neck no stenosis making vertebrobasilar insufficiency not likely ECG initially normal, then repeat with ST elevations in inferolateral leads vs early repol--> trop mildly elevated and then repeat today negative, not likely ACS but rather myocardial demand ischemia ECHO normal, no events on tele except 1st deg AVB - PT/OT -> Recommending SNF/rehab. Plan for [facility] vs. [facility]. Referrals made. Patient and son in agreement. (2) Hypertensive emergency: BP as high as 220/140 on admission in the setting of pain and fall. - Now improved - Continue losartan 50 mg daily (3) Sinus tachycardia: Developed sinus tachycardia through the night and morning of 11/15 No evidence of dehydration, no chest pain or shortness of breath, no hypoxia-not likely secondary to PE ECG with confirmed sinus tachycardia. Most likely due to anxiety and mild agitation as evidenced by developing delirium Continue to follow on telemetry (4) Acute encephalopathy: Developed overnight on 11/14-11/15 some mild confusion and irritability Most likely hospital delirium Not getting enough sleep and room is blocked off from daylight outside. Continue supportive care Hopeful for discharge in the near future to rehab (5) Hypertension: As above (6) Stroke: Prior CVA with left-sided weakness. - Continue ASA & atorvastatin (7) S/P SOLAR INSTALLATION FOREMAN shunt: No issues at present. (8) History of DVT (deep vein thrombosis): Last one in 2017 which was her second. - Lovenox 40 mg SQ daily Could consider lifetime anticoagulation given 2 events however with vertigo and falls, now would not be the time to do so (9) Elevated troponin: trop mildly elevated on admission at 0.066, ECG on repeat had some poss in ferolat ST elevations vs early repol that wsn't present previously Repeat trop then was negative making ACS ruled out Never any chest pain, likely myocardial demand ischemia from strain of possible syncope? ECHO without any regional wall motion abnormalities and with preserved EF No ischemic work-up needed at this time monitor on tele (10) Abnormal ECG: as above repeat ECG improved (11) Hyperlipidemia: continue statin (12) DVT prophylaxis: Lovenox SQ Dispo-to rehab-medically stable but awaiting insurance authorization to [facility] Admission and Anticipated Discharge Date Admission Date: November 13, 2019 Anticipated date of discharge: 11/17/19 Subjective Patient reports still having some dizziness with standing with therapy today. Apparently she had confusion overnight but seems more clear this morning. She still having some mild intermittent headache. Blood pressures did drop slightly with physical therapy on orthostatics but recovered after 1 minute of standing. She denies chest pain or shortness of breath. No abdominal pain or nausea. She reports she is eating "too much food." I discussed her care with her son on the phone who was concerned that she sounds more irritable and confused at times on the phone since yesterday and this morning. Patient tells me that she has not slept well at all the last 2 nights. Telemetry with sinus rhythm and sinus tachycardia with rates in the 90s to 120s. Has been more hypertensive of late. Review of Systems Review of Systems: All systems reviewed & are unremarkable except as noted in HPI & below Physical Exam Constitutional: WD/WN, vitals as above Eyes: + anicteric sclerae; no nystagmus Neck: trachea midline, no thyromegaly Respiratory: normal respiratory effort, lungs clear to auscultation Cardiovascular: RRR, no murmur, no edema Chest (Breasts): Chest: normal inspection of chest Gastrointestinal (Abdomen): normal bowel sounds, soft, nontender, no hepato splenomegaly Musculoskeletal: Extremities: extremities normal to inspection; no cyanosis and no clubbing Skin: no rashes, warm and dry Neurologic: moves all extremities and awake; no focal motor deficits Psychiatric: Orientation: alert, oriented to person, oriented to place, oriented to time (Except did not know the date) and cooperative Eye Contact: good eye contact Speech: normal rate/rhythm/volume of speech Affect: euthymic affect Cognition: recent memory grossly intact Insight: good insight Lymphatic: no lymphedema Results & Data Results & Data ([facility]) Vital Signs (Past 12 Hours) Vital Signs Temp Pulse Pulse Resp BP Pulse Ox 11/16/19 15:33 36.5 C 105 H 18 123/81 96 11/16/19 11:42 36.5 C 99 H 17 97/67 L 94 11/16/19 07:40 36.5 C 119 H 18 133/101 H 92 11/16/19 07:15 121 H Laboratory Results 11/16/19 11/16/19 Range/Units 08:09 08:09 WBC 6.99 (4.8-10.8) K/uL RBC 5.30 (4.2-5.4) M/uL Hgb 15.7 (12.0-16.0) g/dL Hct 47.8 H (37-47) % MCV 90.2 (80-100) fL MCH 29.6 (25-34) pg MCHC 32.8 (32-36) g/dL RDW Std Deviation 43.5 (36.4-46.3) fL RDW Coeff of Mariluz 13.1 (11.5-14.5) % Plt Count 328 (130-400) K/uL MPV 9.9 (7.4-10.4) fL Immature Gran % (Auto) 0.1 % Neut % (Auto) 65.1 % Lymph % (Auto) 24.3 % [place] % (Auto) 9.0 % Eos % (Auto) 1.1 % Baso % (Auto) 0.4 % Neut # (Auto) 4.54 (1.4-6.5) K/uL Lymph # (Auto) 1.70 (1.2-3.4) K/uL [place] # (Auto) 0.63 H (0.11-0.59) K/uL Eos # (Auto) 0.08 (0-0.5) K/uL Baso # (Auto) 0.03 (0-0.2) K/uL Immature Gran # (Auto) 0.01 (0.00-0.02) K/uL Sodium 140 (136-145) mmol/L Potassium 4.2 (3.5-5.1) mmol/L Chloride 109 H (98-107) mmol/L Carbon Dioxide 23 (21-32) mmol/L Anion Gap 8.0 (3-11) BUN 15 (7-18) mg/dl Creatinine 1.03 (0.6-1.2) mg/dl Est Cr Clr Drug Dosing 40.7 ml/min Est GFR ( Amer) 55.8 Est GFR (Non-Af Amer) 48.2 BUN/Creatinine Ratio 14.9 (10-20) Glucose 115 H (70-99) mg/dl Calcium 10.0 (8.5-10.1) mg/dl Magnesium 2.3 (1.8-2.4) mg/dl Total Bilirubin 0.8 (0.2-1) mg/dl AST 18 (15-37) U/L ALT 19 (12-78) U/L Alkaline Phosphatase 114 (45-117) U/L Total Protein 7.6 (6.4-8.2) gm/dl Albumin 3.8 (3.4-5.0) gm/dl Globulin 3.8 (2.5-4.0) gm/dl Albumin/Globulin Ratio 1.0 (0.9-2) TSH 2.680 (0.300-4.500) uIu/ml PG Care Time/CCT Total # of Minutes Spent Total Time Spent with Patient: Total time spent is greater than 50% in coordination of care (as documented) at patient's floor/unit and/or counseling patient: Coding Level of Care Code 27288 Subseq Hosp Care Lvl 3 Diagnoses Fall W19.XXXA Encounter type: initial encounter Hypertensive emergency I16.1 Sinus tachycardia R00.0 Acute encephalopathy G93.40 Hypertension I10 Hypertension type: essential hypertension Stroke I63.9 CVA mechanism: unspecified S/P SOLAR INSTALLATION FOREMAN shunt Z98.2 History of DVT (deep vein thrombosis) Z86.718 Elevated troponin R79.89 Abnormal ECG R94.31 Hyperlipidemia E78.5 Hyperlipidemia type: unspecified DVT prophylaxis Z29.9 (1) Hyperlipidemia Hyperlipidemia type: unspecified Qualified Code(s): E78.5 - Hyperlipidemia, unspecified (2) Hypertension Hypertension type: essential hypertension Qualified Code(s): I10 - Essential (primary) hypertension (3) Fall Encounter type: initial encounter Qualified Code(s): W19.XXXA - Unspecified fall, initial encounter (4) Stroke CVA mechanism: unspecified Qualified Code(s): I63.9 - Cerebral infarction, unspecified
[2019-11-16] MEDS: ATORVASTATIN 40 MG TAB PO SCH (20:07)
[2019-11-17] MEDS: LOSARTAN POTASSIUM 50 MG TAB PO SCH (08:46)
[2019-11-17] MEDS: ASPIRIN 81 MG ECTAB PO SCH (08:46)
--- NOTE | 2019-11-17 08:50 | Medical Student Progress Note ---
Date of Service November 17, 2019 Assessment & Plan (1) Vertigo: CT and MRI showed no acute signs of hemorrhagic or ischemic stroke. Considering the patient's dizziness is correlated with body position, BVVP is most probable, but mild orthostatic hypotension could be contributing to dizziness feeling when patients stands. Patient is feeling better today, and notes no vertigo episodes today. PT/OT- Recommended rehab, refer to rehab, waiting on case management. Patient and Son in agreement (2) Hypertension: Blood pressure has been trending in the normal to low ranges in last 24 hrs. Continue Losartan 50MG Hypertension type: essential hypertension Qualified Code(s): I10 - Essential (primary) hypertension (3) Sinus tachycardia: Sinus tachycardia has gradually improved, but is trending on the upper end of normal. Pt denies feeling chest pain, SOB or palpitations. Increased HR could due to anxiety and mild agitation. Will continue to monitor for changes. (4) Acute encephalopathy: Pt is alert today and seen to be doing better, but has trouble remembering things from the previous day. Confusion Likely due to hospital delirium. Pt's room lacks sunlight. She states she was able to sleep today and plans to be discharged soon. (5) Elevated troponin: Repeat Troponin came out normal. Pt denies chest pain, SOB, or JOHN. RTachycardia has since improved as stated above. Monitor for symptoms (6) Stroke: Prior CVA Continue ASA and Atorvastatin CVA mechanism: unspecified Qualified Code(s): I63.9 - Cerebral infarction, unspecified (7) S/P EDGE BLACKER shunt: Stable with no changes (8) DVT prophylaxis: Admission and Anticipated Discharge Date Admission Date: November 13, 2019 Subjective Pt is a 89 yo F with a significant PMH of CVA w L sided residual weakness, HT, and 2x Prior DVT that presented to the hospital on after a fall and acute vertigo spells. Pt states she hasn't felt dizzy this morning considering she has just awakened as hasn't moved very much. Pt was able to get some sleep last night and does not remember waking up at night. Pt has trouble remembering much from yesterday. Denies any Headache this morning. Denies any chest pain, SOB, palpitations. Pt is looking forward to be going home. She is awaiting her transfer to rehab. Review of Systems Ear, Nose, Mouth, Throat: + dizziness; no ear pain, no hearing loss and no post nasal drip Cardiovascular: + edema; no chest pain, no radiating jaw, neck or arm pain and no palpitations Musculoskeletal: + muscle weakness (L UE, residual from prior CVA) Integumentary: Large Contusion approximately 14 cm in diameter from initial fall on the R posterior aspect of arm. Neurologic: + localized weakness (L side), + dizziness and + headache(s); no abnormal speech Physical Exam Constitutional: healthy appearing Eyes: normal visual warner by confrontation, PERRL and reactive pupils; no nystagmus and no photophobia ENMT: Ears: no hearing impairment, Herrera normal and Rinne normal Nose: no sinus tenderness and no facial exam abnormality Mouth: no oral mucosal abnormality and no tongue abnormality Neck: normal visual inspection Respiratory: normal respiratory effort; no cough and not tachypneic Auscultation: lungs clear to auscultation bilaterally; no crackles, no rales, no rhonchi and no wheezes Cardiovascular: Rate/Rhythm: regular rate and regular rhythm Heart Sounds: no click, no gallop, no murmur and no cardiac rub Vessels: normal carotid upstroke; no carotid bruit Extremities: + calf tenderness and + pedal edema Skin: Trauma: + contusion (R arm on posteriolateral side) Neurologic: patellar DTR's 2+ bilat, sensation intact CN's II-XI intact bilaterally and deep tendon reflexes 2+ bilaterally; not confused Speech / Cognition: normal speech Psychiatric: Orientation: alert and oriented to place Eye Contact: good eye contact Results & Data ([facility]) Vital Signs (Past 12 Hours) Vital Signs Temp Pulse Pulse Resp BP Pulse Ox 11/17/19 07:28 88 11/17/19 07:14 36.6 C 93 H 16 136/78 96 11/17/19 06:16 101 H 11/17/19 04:36 36.7 C 102 H 20 135/91 92 11/16/19 23:03 36.6 C 99 H 20 113/73 95
--- NOTE | 2019-11-17 12:57 | Discharge Summary ---
Date of Service November 17, 2019 Admission HPI Per Admitting Provider Caveat: History Limited by - Patient is a vague historian. 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 She does not remember why she was in her bedroom or what she was doing prior to fall. She notes that she was in bedroom and became dizziness and fell. She notes she pounded on the bedroom wall in order to get noticed for rescue. She does not recall hitting her head and she is unsure if she had any loss of consciousness. She notes she has left shoulder pain and fell onto her left side. She notes she was afraid to get off the ground because of dizziness. She states currently she has no dizziness when interviewed in ED, but is afraid to sitting up or getting up might cause it to return. She notes she felt dizziness intermittently throughout the day yesterday and denies any dizziness day before, but she cannot recall events of day prior. She notes she takes home medications as directed but cannot recall the names "or what they do." She states she lives in assisted living. She cannot recall if she's had dizziness like this before. She cannot recall if she went from sitting to standing with dizziness or if felt light headed or like she was going to pass out. She did note that dizziness "felt like I was gonna fall out of the bed." She noted though that she wasn't in bed or doesn't think she was in bed prior. In the ED, she was HTN 222/137 which was treated with Labetalol 10mg IV x 1 and now is 140/94. She had a CT Head with no signs of acute bleed, CXR with NAD, Left hip xray without signs of fracture. ED staff noted left sided drift and weakness on exam. Labs were otherwise unremarkable, not on anticoagulation. Principal Diagnosis Dizziness, hypertensive urgency, orthostasis Discharge Exam Constitutional WD/WN, vitals as above Eyes + anicteric sclerae; no nystagmus Neck trachea midline, no thyromegaly Respiratory normal respiratory effort, lungs clear to auscultation Cardiovascular RRR, no murmur, no edema Chest (Breasts) Chest: normal inspection of chest Gastrointestinal (Abdomen) normal bowel sounds, soft, nontender, no hepatosplenomegaly Musculoskeletal Extremities: extremities normal to inspection; no cyanosis and no clubbing Skin no rashes, warm and dry Neurologic moves all extremities and awake; no focal motor deficits Psychiatric Orientation: alert, oriented to person, oriented to place, oriented to time (Except did not know the date) and cooperative Eye Contact: good eye contact Speech: normal rate/rhythm/volume of speech Affect: euthymic affect Cognition: recent memory grossly intact Insight: good insight Lymphatic no lymphedema Discharge Data Allergies Allergy/AdvReac Type Severity Reaction Status Date / Time levofloxacin [From Levaquin] Allergy Unknown Unknown Verified 11/11/19 22:56 Penicillins Allergy Unknown Unknown Verified 11/11/19 22:56 Sulfa (Sulfonamide Allergy Unknown Unknown Verified 11/11/19 22:56 Antibiotics) Macrolide Antibiotics AdvReac Mild GI Symptoms Verified 11/11/19 22:56 Consultations 11/11/19 23:16 ED Decision to Admit Stat 11/12/19 01:46 Consult Case Management - Discharge Planning Routine Consult Neurology Routine Ordered Studies 11/11/19 22:22 CT head/brain wo con Urgent 11/12/19 01:46 CT angio neck with con Routine 11/12/19 11:49 MR brain wo con Routine Echocardiogram Chest x-ray Hip/pelvis x-ray Hospital Course (1) Fall: Became acutely dizzy, tried to sit down, but did not make it. Feels she may have lost consciousness for about 5 minutes or less. MRI brain on 11/11 showed no stroke. has some episodes of dizziness at rest lying flat and others with getting up and moving. Difficult to say if vertigo vs orthostasis although orthostatic vitals early in course were normal. Then she did have orthostatics were positive initially upon standing, but then normalized after 1 minute of standing as per PT notes - Seen by neurology-thinks probably positional vertigo but could be stroke and recommended brain MRI--> neg for acute stroke CTA Neck no stenosis making vertebrobasilar insufficiency not likely ECG initially normal, then repeat with ST elevations in inferolateral leads vs early repol--> trop mildly elevated and then repeat today negative, not likely ACS but rather myocardial demand ischemia ECHO normal, no events on tele except 1st deg AVB -Encouraged to wear OLIVIA hose during the day and to get up slowly with standing Needs PT exercises with Key maneuvers to see if vertiginous component will resolve Overall much improved on 11/16, stable for discharge to rehab (2) Hypertensive emergency: BP as high as 220/140 on admission in the setting of pain and fall. - Now significantly improved - Continue losartan 50 mg daily and would not titrate up further at this point given that she has some orthostasis (3) Sinus tachycardia: Developed sinus tachycardia through the night and morning of 11/15 No evidence of dehydration, no chest pain or shortness of breath, no hypoxia-not likely secondary to PE ECG with confirmed sinus tachycardia. Most likely due to anxiety and mild agitation as evidenced by mild delirium Now completely resolved and mild delirium has also resolved (4) Acute encephalopathy: Developed overnight on 11/14-11/15 some mild confusion and irritability Most likely hospital delirium Not getting enough sleep and room is blocked off from daylight outside. Now much improved on the day of discharge Continue supportive care (5) Hypertension: As above (6) Stroke: Prior CVA with left-sided weakness. - Continue ASA & atorvastatin (7) S/P [employer] shunt: No issues at present. (8) History of DVT (deep vein thrombosis): Last one in 2017 which was her second. - Lovenox 40 mg SQ daily was provided here Could consider lifetime anticoagulation given 2 events however with vertigo and falls, now would not be the time to do so-defer to PCP in the future (9) Elevated troponin: trop mildly elevated on admission at 0.066, ECG on repeat had some poss inferolat ST elevations vs early repol that wsn't present previously Repeat trop then was negative making ACS ruled out Never any chest pain, likely myocardial demand ischemia from strain of possible syncope? ECHO without any regional wall motion abnormalities and with preserved EF No ischemic work-up needed at this time No arrhythmias on telemetry (10) Abnormal ECG: as above repeat ECG improved (11) Hyperlipidemia: continue statin (12) DVT prophylaxis: Lovenox SQ Dispo-to rehab-medically stable Total Time Total Time Spent Total Time Spent (In Minutes): 35 minutes Total Time Includes: Examination of the Patient, Discharge Planning and Medication Reconciliation Discharge Plan Discharge Items Patient Disposition: Transfer Inpatient Rehab Fac Reason For Visit: FALL Discharge Diagnosis: Fall, dizziness Condition on Discharge: Good Activity: As commented below Lifting: Gradually increase as tolerated Bathing: No limitations Exercise/Sports: Gradually increase as tolerated Exercise Comment: with PT and OT Weightbearing: Full weightbearing Non-emergency contact: Primary Care Provider Call non-emergency contact if: you have any medication questions and your symptoms worsen Follow-up/Referrals: Chilo Wen MD [Primary Care Provider] - (Follow-up within 1 to 2 weeks after discharge) Diet: Heart Healthy Addtl Attending Provider Instructions: You were admitted after a fall at your personal snf. We watched your heart and did not see any rhythm issues. We also did x-rays to be sure you did not break any bones. Luckily, you did well overall, and we did not find anything broken. We also did an MRI of your brain which did not show any sign of a recent stroke. This is great news! Your blood pressure did well while you were here. It was high when you first came, but quickly settled into a normal range for you. If you have any further dizzy spells, please have the aides at your home check your blood pressure to make sure it's not too high or too low. It is important to wear compression stockings keep your blood pressure from dropping low when you stand up. Some of your dizziness might be from vertigo which would benefit from/improve with physical therapy exercises. Pending Studies at Discharge: No Stand-Alone Forms: My [facility] Skilled Items Patient informed of condition?: Yes DNR: Yes Discharge Level of Care: Acute rehab Communicable Disease: No Discharge Prognosis: Improving Lines: None Urinary Catheter: No Medications and DC Order Prescriptions: New melatonin 3 mg Tablet 3 mg PO HS PRN (Reason: sleep) Qty: 30 RF: 0 Continued losartan 50 mg tablet 50 mg PO QAM Qty: 90 RF: 3 diclofenac sodium [Voltaren] 1 % gel 4 gm TOP QID PRN (Reason: ankle pain) Qty: 100 RF: 3 atorvastatin 40 mg tablet 40 mg PO HS Qty: 90 RF: 3 benzonatate [Tessalon Perles] 100 mg capsule 200 mg PO TID PRN (Reason: cough) Qty: 180 RF: 6 Systane Complete 0.6 % Drops 1 drp OPHTHALMIC (EYE) Q4H MDD 5 DOSES/24 HOURS. PRN (Reason: Dry Eyes) RF: 0 Breo Ellipta 100-25 mcg/dose blister with device 1 inh inhalation QDL RF: 0 loperamide [Imodium A-D] 2 mg Tablet 2 mg PO Q3H PRN (Reason: Diarrhea) RF: 0 aspirin [Aspir-81] 81 mg Tablet,Delayed Release (Dr/Ec) 81 mg PO DAILY RF: 0 acetaminophen [Tylenol Extra Strength] 500 mg Tablet 500 mg PO Q4H MDD 3 GRAMS/24 HOURS PRN (Reason: Fever Or Pain) RF: 0 acetaminophen 500 mg Tablet 500 mg PO DAILY RF: 0 docusate sodium [Stool Softener] 100 mg Capsule 100 mg PO BID PRN (Reason: Constipation) RF: 0 Mucinex Cold,Flu,Sore Throat 10-20-650 mg/20 mL Liquid 20 ml PO QID PRN (Reason: Cold Symptoms) RF: 0 albuterol sulfate [ProAir HFA] 90 mcg/actuation HFA aerosol inhaler 2 puffs INH QID PRN (Reason: Shortness Of Breath Or Wheezing) RF: 0 Discontinued diphenhydramine HCl [Allergy Relief(diphenhydramin)] 25 mg Tablet 25 - 50 mg PO Q4H MDD 6 DOSES/24 HOURS. PRN (Reason: Allergy Symptoms) RF: 0 Discharge Orders: Discharge Order (Routine); Ordered 11/17/19 Ordered By: Tala Christianson Admission Data Admit Date/Time: 11/13/19 14:55 Attending Provider: Tala Christianson Admit Provider: Rock Connelly Primary Care Provider: Chilo Wen Other Providers: Simon Lowery ; Rock Connelly ; [facility] Coding Level of Care Code D/C Day Management >30 mins Diagnoses Fall W19.XXXA Encounter type: initial encounter Hypertensive emergency I16.1 Sinus tachycardia R00.0 Acute encephalopathy G93.40 Hypertension I10 Hypertension type: essential hypertension Stroke I63.9 CVA mechanism: unspecified S/P [employer] shunt Z98.2 History of DVT (deep vein thrombosis) Z86.718 Elevated troponin R79.89 Abnormal ECG R94.31 Hyperlipidemia E78.5 Hyperlipidemia type: unspecified DVT prophylaxis Z29.9
[2019-11-17] MEDS: ENOXAPARIN INJ 40 MG/0.4 ML SYR SQ SCH (13:45)
[2019-11-17] MEDS: FLUTICASONE/VILANTEROL 100/25MCG 14 PUFFS/INHALER INH SCH (13:45)
== END 2019-11-17 18:25 | DRG 149 ==
LOC: 2N 22:13 → ED 22:13 → SUATTDRO 11-12 00:41 → 2N 11-12 01:05 → SUATTDRO 11-13 14:55